=== PATIENT | male | born 1950 | race Caucasian/White ===

== ENCOUNTER → 2018-09-25 10:22 | Outpatient (CLI) | payer OTHER, SELFPAY ==
[2017-10-07 14:43] VITALS: BMI 31.7
--- NOTE | 2018-09-25 10:33 | RAD_ITS ---
STUDY: X-RAY - LEFT SHOULDER REASON FOR EXAM: Male, 68 years old. Patient fell. Pain TECHNIQUE: 4 view(s) of the shoulder. COMPARISON: None. FINDINGS: There are mild degenerative changes of the left acromioclavicular joint and the left glenohumeral articulation. No fracture. Electronically Signed: Hood Ladd MD at 7:26 EDT Tel , Service support , RAD/Shoulder min 2 Views
--- NOTE | 2018-09-25 10:44 | RAD_ITS ---
STUDY: X-RAY - LUMBAR SPINE REASON FOR EXAM: Male, 68 years old. Low back pain TECHNIQUE: 2 view(s) of the lumbar spine were obtained. COMPARISON: None FINDINGS: Normal lumbar lordosis. There is no substantial scoliosis. There is a normal alignment of the vertebrae from L1 to L5. There is a bilateral pars defect and grade 1-2 spondylolisthesis at L5/S1.. There is multilevel endplate spondylosis of the lumbar vertebrae. Mild disc space narrowing noted throughout the lumbar spine except at L5-S1 where there is significant disc space narrowing. Aortic stent graft noted, it is free of apparent complication RAD/Lumbar Spine 2 or 3 Views IMPRESSION: Degenerative changes of the spine, as detailed above with a bilateral pars defect and grade 1-2 spondylolisthesis at L5/S1 Electronically Signed: Leonardo Narayanan MD at 13:18 EDT , Service support ,
== END ==
PROVIDERS: Family Provider Internal Medicine; PCP Internal Medicine; Referring Provider Internal Medicine; Visit Provider Internal Medicine
DX: M25.512 Pain in left shoulder (principal); M54.31 Sciatica, right side
CPT/HCPCS: 72100; 73030

== ENCOUNTER → 2018-10-19 | Outpatient (CLI) | payer OTHER, SELFPAY ==
[2018-10-08 15:43] VITALS: BMI 31.0
[2018-10-19 06:59] LABS: AST(SGOT) 16 U/L (15-37); Alanine Aminotransfer ALT/SGPT 26 U/L (16-61); Albumin, Serum 3.3 g/dL (3.2-5.0); Alkaline Phosphatase 52 U/L (45-117); Bilirubin, Direct 0.14 mg/dL (0.00-0.30); Cholesterol 154 mg/dL (200); Globulin 3.6 g/dL (2.2-4.2); High Density Lipoprotein 44 mg/dL; Protein, Total 6.9 g/dL (6.4-8.2); Triglycerides 106 mg/dL; Very Low Density Lipoprotein 21 mg/dL (5-40)
== END | disposition home or self-care (01) ==
LOC: LAB 06:12
PROVIDERS: Family Provider Internal Medicine; PCP Internal Medicine; Referring Provider Internal Medicine Cardiovascular Disease; Visit Provider Internal Medicine Cardiovascular Disease
DX: E78.00 Pure hypercholesterolemia, unspecified (principal)
CPT/HCPCS: 36415; 80061; 80076

== ENCOUNTER → 2018-10-21 | Outpatient (CLI) | payer OTHER, SELFPAY ==
[2018-10-08 15:43] VITALS: BMI 31.0
--- NOTE | 2018-10-21 08:45 | STRESSREP_ITS ---
Stress Test Report Exercise myocardial perfusion stress test. 68-year-old man with a history of coronary artery disease. Medications aspirin, nitroglycerin, lisinopril, metoprolol, atorvastatin. Stress protocol: Resting EKG demonstrates sinus bradycardia with a rate of 54 bpm normal intervals are noted resting blood pressure 154/82 mmHg. The patient exercised according to the regular Joshua protocol for total duration of 9 minutes. The maximum heart rate attained was 141 bpm is 91% maximum predicted heart rate the maximum workload was 10.1 metabolic equivalents. Patient maintained sinus rhythm throughout the recording with occasional premature ventricular complexes noted. At rest nonspecific ST-T wave changes were noted. At peak exercise ther e was 1.[address] depression noted in leads II, III and I 0.7 and aVF. There was 1.[address] depression noted in lead V5 and V6 suggestive of ischemia. The resting blood pressure was 154/82 with a peak blood pressure 174/68 mmHg. Chest pain was noted. Myocardial perfusion protocol. 14.1 mCi of technetium 99m sestamibi was injected at rest. The patient exercised according to regular Joshua protocol for total duration of 9 minutes at peak exercise 44.6 mCi of technetium 99m sestamibi was injected stress images were obtained stress and rest images were reconstructed and compared in the short axis vertical long horizontal long axis. Gated images were also obtained per Perfusion SPECT analysis: Review of the stress images demonstrate normal cardiac silhouette size. There is a medium-sized defect noted in the inferior basal and mid lateral wall. This appears to be present on the stress and resting images suggestive of previous infarct in the inferior basal and lateral region. No areas of reversibility are noted suggest ischemia. This does correspond to a posterolateral myocardial infarction. Gated SPECT analysis: The gated ejection fraction is noted to be 49%. Conclusion: Exercise myocardial perfusion stress test with no evidence of ischemia noted at a high workload. No clinical angina noted. Posterolateral infarct is noted.
== END | disposition home or self-care (01) ==
LOC: CVS 06:21
PROVIDERS: Family Provider Internal Medicine; PCP Internal Medicine; Referring Provider Internal Medicine Cardiovascular Disease; Visit Provider Internal Medicine Cardiovascular Disease
DX: I25.10 Atherosclerotic heart disease of native coronary artery without angina pectoris (principal); Z98.61 Coronary angioplasty status
CPT/HCPCS: 78452; 93017; A9500; A4216

== ENCOUNTER → 2019-02-24 | Outpatient (CLI) | payer OTHER, SELFPAY ==
[2018-10-08 15:43] VITALS: BMI 31.0
[2019-02-24 07:57] LABS: PSA,Total - Annual Screen 1.28 ng/mL (0.00-4.00)
== END | disposition home or self-care (01) ==
LOC: LAB 06:06
PROVIDERS: Family Provider Internal Medicine; PCP Internal Medicine; Referring Provider Urology; Visit Provider Urology
DX: Z12.5 Encounter for screening for malignant neoplasm of prostate (principal)
CPT/HCPCS: 36415; 84153; G0103

== ENCOUNTER 2019-06-11 13:33 | Emergency (ER) | payer OTHER, SELFPAY ==
[2018-10-08 15:43] VITALS: BMI 31.0
[2019-06-11 13:34] VITALS: BP 153/80; PULSE 60; RESP 16; TEMP 36.7; O2SAT 99; BMI 31.7
--- NOTE | 2019-06-11 14:12 | ED.VIS.GEN ---
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 He states he was on a ladder beginning of September. He apparently fell. He had outpatient x-rays performed September 25. Those x-rays were reviewed by me and there is evidence of arthritis of the AC joint and the glenohumeral junction/joint. Patient states he has been taking ibuprofen. He states the pain has awakened him from sleep and if he puts his hand behind his head it will alleviate the pain so he can sleep for an hour. He denies cardiac or respiratory symptoms. He denies radicular pain. He localizes the pain to the glenohumeral joint and left trapezius area. Occasionally the pain will involve the lateral proximal left arm. 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 Past Medical History - Allergies and Home Meds Allergies/Adverse Reactions: Allergies clopidogrel [From Plavix] Allergy (Verified 10/08/18 15:43) Anaphylaxis Primary Care Physician: Terri Arguello DO [Primary Care Provider] - Prior records reviewed: Yes Lives: Spouse/ Significant Other Smoking Status: Former smoker Alcohol: None Drugs: None Review of Systems General: Denies: Chills, Fever, Sweats, Weight loss Eyes: Denies: Visual changes - bilaterally, Blurred Vision - bilaterally Cardiovascular: Denies: Chest pain, Palpitations Respiratory: Denies: Dyspnea, Cough, Dyspnea on exertion Musculoskeletal: Reports: Extremity Pain. Denies: Myalgias, Arthralgias, Neck pain, Back pain, Swelling Skin: Denies: Rash, Wounds Neurological: Denies: Headache, Weakness, Parasthesia, Numbness Physical Exam Vital Signs/Narrative: Vital Signs Temp Pulse Resp BP Pulse Ox 06/11/19 13:34 98.1 F 60 16 153/80 H 99 Inital Vital Signs reviewed: Yes General: Well nourished, Well developed, No Acute Distress Head: Normocephalic, Atraumatic Eyes: Perrl, EOMI. Negative for: Pale conjunctiva, Scleral icterus ENT: Negative for: Moist mucous membranes, No rhinorrhea Neck: Supple, Nontender, No lymphadenopathy, No JVD, - Cardiovascular: Regular rate, Regular rhythm, No murmurs, Normal S1, Normal S2 Respiratory: No distress, CTA bilaterally, Chest nontender Back: Negative for: Nontender, Normal Inspection Extremities: No edema, - - Is pain palpation over the left trapezius and proximal left shoulder. Abduction past 90 degrees causes significant discomfort. Internal/external rotation causes discomfort. Axillary, median, radial and ulnar function are intact. Biceps, brachialis and triceps reflex are 2+ and symmetric.. Negative for: Nontender Skin: Normal color, No rash, No Trauma. Negative for: Cyanosis, Diaphoresis, Jaundice Neurological: Alert, Oriented x3, Cranial nerves II-XII grossly intact, Normal Strength, Normal Sensation, Normal DTR Psychological: Normal affect Diagnostic/Tx/Re-eval - Medical Decision Making My records were reviewed. Since he had x-ray greater than 6 months ago when he fell and there was no fracture at that time there is no indication for repeat x-ray. Patient has been informed that he has arthritis involving the AC joint and the glenohumeral joint. This may be contributing to his pain. With him having sniffing and pain with abduction past 90 degrees he may have developed impingement syndrome. Since this is work-related we will have him follow-up with [facility]. Patient is been informed there is nothing more to do at this time. ED Disposition - Plan for ED Patient: Disposition: Home or Assisted Living Diagnosis: Chronic left shoulder pain, Arthritis of left glenohumeral joint, Impingement syndrome, shoulder, left Instructions: Shoulder Impingement Syndrome, Osteoarthritis: Coping with Pain, ANTI-INFLAMMATORY, General Referrals: Terri Arguello DO [Primary Care Provider] - [facility] [GROUP OF PHYSICIANS] - 3-5 Days
[2019-06-11 14:36] VITALS: BP 126/87; PULSE 54; RESP 17; O2SAT 93
== END 2019-06-11 14:37 | disposition home or self-care (01) ==
PROVIDERS: Emergency Provider Emergency Medicine; Family Provider Internal Medicine; PCP Internal Medicine
DX: M19.012 Primary osteoarthritis, left shoulder (principal); M75.42 Impingement syndrome of left shoulder; M25.512 Pain in left shoulder; G89.29 Other chronic pain; I25.10 Atherosclerotic heart disease of native coronary artery without angina pectoris; I25.2 Old myocardial infarction; E78.5 Hyperlipidemia, unspecified; I10 Essential (primary) hypertension; Z79.82 Long term (current) use of aspirin; Z79.899 Other long term (current) drug therapy; Z87.891 Personal history of nicotine dependence
CPT/HCPCS: 99282

== ENCOUNTER → 2020-02-22 17:51 | Outpatient (CLI) | payer OTHER, SELFPAY ==
[2019-06-16 16:01] VITALS: BMI 31.7
--- NOTE | 2020-02-22 16:30 | CYSPIN_PTH ---
PATIENT: CHRIS CR LOC: [facility] U#:[id number] AGE/SX: 75/M ROOM: RE02/22/[address]: Dr. Derrek Gann MD : 1950 BED: DIS: SPEC #: [id number] RECD: 02/23/20 08:24 STATUS: ANNEL REDaja #: [id number] ZAK: 02/22/20 16:[address]: Derrek Gann DEPT: CYTOLOGY RECD BY: Evans Rivas ENTERED: 02/23/20 08:25 SP TYPE: CYSPIN FL OTHR DR: Dr. Terri Arguello, DO Tissues: Urine Procedures: Pap Stain (control) Special Stain Group II Cytospin Fluid HEADER OPERATION: Not noted PRE-OP DIAGNOSIS: Malignant neoplasm of ureteric orifice TISSUE SUBMITTED: Urine for cytology DIAGNOSIS CYTOLOGY Urine for cytology (cytospin): Negative for malignant cells. 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 CYTOLOGY STUDY Slides are reviewed. CYTOLOGY GROSS Received is 75 ml of cloudy orange fluid labeled with the patient's name and and designated per the requisition as urine. Submitted for cytology preparation. / blaise 02/23/20 TC:5 CPT: 31850
[2020-02-22 17:52] LABS: Cytology, Body Fluid / CSF SEE PATHOLOGY REPORT
== END ==
PROVIDERS: PCP Internal Medicine; Referring Provider Urology; Visit Provider Urology
DX: C67.6 Malignant neoplasm of ureteric orifice (principal)
CPT/HCPCS: 88108; 88313

== ENCOUNTER 2020-03-08 08:25 | Day surgery (SDC) | payer OTHER, SELFPAY ==
[2019-06-16 16:01] VITALS: BMI 31.7
[2020-02-24 16:20] VITALS: BMI 32.3
--- NOTE | 2020-03-01 06:10 | EKG12_ITS ---
Test Reason : PRE OP Blood Pressure : / mmHG Vent. Rate : 043 BPM Atrial Rate : 043 BPM P-R Int : 182 ms QRS Dur : 110 ms QT Int : 464 ms P-R-T Axes : 060 034 073 degrees QTc Int : 392 ms Marked sinus bradycardia with sinus arrhythmia Abnormal ECG Confirmed by PATRICE MCKEON ([id number]), restaurant expeditor BRIGETTE MORALES ([id number]) on 03/06/2020 9:47:51 AM Referred By: Derrek Gann Confirmed By:PATRICE MCKEON
[2020-03-01 07:52] LABS: International Normalized Ratio 0.9; Prothrombin Time (Protime)PT. 12.1 SECONDS (11.7-14.9)
[2020-03-01 07:53] LABS: Partial Thromboplast Time 26.1 Seconds (24.1-36.2)
[2020-03-01 07:57] LABS: Hematocrit 42.8 % (40-54); Hemoglobin 15.5 g/dL (13.0-16.5); Mean Corp Hgb Conc 36.2 g/dL (32-36); Mean Corpuscular Hgb 33.4 pg (27.0-32.0); Mean Corpuscular Volume 92.2 fL (80-94); Mean Platelet Vol. 10.5 fl (6.2-12.0); Platelet Count 239 K/mm3 (150-450); RBC Distribution Width CV 14.6 % (11.6-14.6); RBC Distribution Width SD 43.4 fl (35.1-43.9); Red Blood Count 4.64 M/mm3 (4.6-6.2); White Blood Count 6.3 K/mm3 (4.4-11.0)
[2020-03-01 08:30] LABS: AST(SGOT) 20 U/L (15-37); Alanine Aminotransfer ALT/SGPT 42 U/L (16-61); Albumin, Serum 3.7 g/dL (3.2-5.0); Alkaline Phosphatase 60 U/L (45-117); Anion Gap 5 (5-15); BUN 23 mg/dL (7-18); BUN/Creat Ratio 22.8 RATIO (10-20); Bilirubin, Direct 0.19 mg/dL (0.00-0.30); Calcium,Total 8.7 mg/dL (8.5-10.1); Chloride 106 mmol/L (98-107); Creatinine, Serum 1.01 mg/dL (0.70-1.30); EST Glomerular Filtration Rate 78 mL/min (>60); Est Glom Filt Rate - Afr Amer 95 mL/min (>60); Globulin 4.1 g/dL (2.2-4.2); Glucose 93 mg/dL (74-106); PSA,Total - Annual Screen 1.09 ng/mL (0.00-4.00); Potassium 4.8 mmol/L (3.5-5.1); Protein, Total 7.8 g/dL (6.4-8.2); Sodium Level 138 mmol/L (136-145)
[2020-03-08] VITALS (8 sets, daily range): BP systolic 110–135; BP diastolic 51–83; PULSE 44–61; RESP 15–16; TEMP 36.1–36.5; O2SAT 97–99; BMI 31.3
--- NOTE | 2020-03-08 | URE_PTH ---
PATIENT: CHRIS CR LOC: [facility] [place] U#:[id number] AGE/SX: 70/M ROOM: RE03/08/[address]: Dr. Derrek Gann MD : 1950 BED: DIS: 03/08/2020 SPEC #: [id number] RECD: 03/08/20 13:16 STATUS: ANNEL REDaja #: [id number] ZAK: 03/08/20 00:[address]: Derrek Gann DEPT: SURGICAL PATHOLOGY RECD BY: Floyd Arana ENTERED: 03/08/20 13:16 SP TYPE: URETER BX OTHR DR: Dr. Terri Arguello, DO Tissues: Ureteral orifice, NOS Procedures: Surgery Specimen Level IV HEADER OPERATION: Cysto, ureteroscopy, transurethral resection of tumor, stent PRE-OP DIAGNOSIS: Malignant neoplasm of ureteric orifice; BPH with lower urinary tract; prostate screening TISSUE SUBMITTED: Tumor of right ureteral orifice MICROSCOPIC DIAGNOSIS Tumor of right ureteral orifice, TUR: Mild chronic inflammation. No evidence of malignancy. See comment. AM:blaise 03/09/20 COMMENT Urothelium and smooth muscle are both represented in the biopsy. Clinical correlation is suggested. 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 Case has been reviewed in consultation with Dr. Baca who concurs with the above diagnosis. IDC:[email or web address] MICROSCOPIC DESCRIPTION Slides are reviewed. GROSS DESCRIPTION Received in fixative is one container labeled with the patient's name and designated tumor of right ureteral orifice. The specimen consists of two irregular fragments of light ruiz soft tissue that in aggregate measure 0.6 x 0.3 x 0.2 cm. The specimen is totally submitted in one cassette. / CRYSTAL:blaise 03/08/20 TC:1 CPT: 31253
[2020-03-08] MEDS: Lactated Ringers 1,000 ML 100 ML IV (09:02)
[2020-03-08] MEDS: Cefazolin 2 GM in 0.9% Normal Saline 100 ML IV (11:13)
--- NOTE | 2020-03-08 11:24 | PCM.HP.STD ---
History of Present Illness Date of Admission: 03/08/20 Chief Complaint: Bladder tumor ureteral tumor The patient is a 70 year old male who was found to have a ureteral tumor coming from the right ureteral orifice right at the bladder ureteral junction Past Medical History Past Medical History (Chronic Problems): Chronic Problems (Last Updated 02/24/20 @ 17:04 by Lakia Bailey) Abdominal aortic aneurysm (AAA) (Chronic) Endovascular AAA repair 12/2010 Atherosclerotic heart disease of [place] coronary artery without angina pectoris (Chronic) History of coronary artery stent placement (Chronic 01/28/12) PTCA of mid left CFX intracoronary stent October 2010; PTCA/stent of distal LCx & distal RCA 06/04/11 PCI to mid CX & RCA;PCI & stent to 70% in-stent restenosis of prox & mid left Cx 01/28/12 Essential (primary) hypertension (Chronic) History of myocardial infarction (Chronic) 10/22 Hyperlipidemia (Chronic) Bladder cancer (Chronic) Medical History: Medical History (Last Updated 02/24/20 @ 17:04 by Lakia Bailey) Abdominal aortic aneurysm (AAA) (Chronic) I71.4 Endovascular AAA repair 12/2010 Atherosclerotic heart disease of [place] coronary artery without angina pectoris (Chronic) I25.10 Essential (primary) hypertension (Chronic) I10 History of myocardial infarction (Chronic) I25.2 10/22 Hyperlipidemia (Chronic) E78.5 Bladder cancer (Chronic) C67.9 Impingement syndrome of left shoulder M75.42 Pain in left shoulder M25.512 Primary osteoarthritis, left shoulder M19.012 Back pain M54.9 Shoulder pain M25.519 Dizziness and giddiness (Inactive) R42 Dyspnea on exertion (Inactive) R06.09 Fatigue (Inactive) R53.83 Allergies clopidogrel [From Plavix] Allergy (Verified 03/08/20 08:40) Anaphylaxis Home Medications: Ambulatory Orders Medication Instructions Recorded atorvastatin 40 mg tablet 40 mg PO DAILY #90 tab 05/17/19 lisinopril 10 mg tablet 10 mg PO DAILY #90 tab 11/08/19 nitroglycerin 0.4 mg sublingual 0.4 mg SUBLINGUAL PRN PRN #25 tab 01/31/20 tablet metoprolol tartrate 25 mg tablet 25 mg PO BID #180 tab 02/16/20 Aspirin E.C. [Ecotrin] 81 mg PO DAILY@0800 02/29/20 Surgical History: Surgical History (Last Updated 02/24/20 @ 17:04 by Lakia Bailey) History of coronary artery stent placement (Chronic) Onset Date: 01/28/12 Z95.5 PTCA of mid left CFX intracoronary stent October 2010; PTCA/stent of distal LCx & distal RCA 06/04/11 PCI to mid CX & RCA;PCI & stent to 70% in-stent restenosis of prox & mid left Cx 01/28/12 H/O endovascular stent graft for abdominal aortic aneurysm Onset Date: 12/18/10 Z95.828 Aortobi-iliac stent graft repair 12/18/2010 H/O transurethral destruction of bladder lesion Onset Date: 2009 Z98.890 chemo Surgical History: no surgical history Smoking Status: Former smoker Tobacco Use: Non-smoker VTE Information - Inpt Only VTE Present on Admission: No - Physical Exam Vitals/I&O's: Vital Signs Temp Pulse Resp BP Pulse Ox 97.7 F L 45 L 15 135/83 H 99 03/08/20 08:48 03/08/20 08:48 03/08/20 08:48 03/08/20 08:48 03/08/20 08:48 Oxygen Delivery Method Room Air Weight: 97.7 kg Body Mass Index (BMI) 31.3 General: Alert, Oriented x3, Cooperative HEENT: Atraumatic, PERRLA, EOMI, Normocephalic Neck: Supple, No JVD, Negative Carotid Bruits Lungs: Clear to auscultation, Normal air movement Cardiovascular: Regular rate, No murmurs Abdomen: Bowel Sounds Present, Soft, Non Tender Extremities: No edema, Capillary Refill Less than 3 Seconds Skin: No rashes, No breakdown Musculoskeletal: No Tenderness to Palpation of Joints or Extremities Neurological: Cranial nerves II-XII grossly intact Psych/Mental Status: Normal Affect, Appropriate Current Medications Cefazolin Sodium 2 gm/ Sodium (Chloride) 110 mls @ 150 mls/hr IV PREOP ONE Stop: 03/08/20 11:38 Lactated Ringer's () 1,000 mls @ 100 mls/hr IV .Q10H CA Last Admin: 03/08/20 09:02 Dose: 100 mls/hr Documented by: Assessment/Plan Plan to proceed with cystoscopy right retrograde pyelogram right ureteroscopy biopsy and also transurethral resection of the bladder tumor coming from the ureteral orifice.
--- NOTE | 2020-03-08 11:27 | PCM.DC.URO ---
Discharge Diet: Light diet - advance as tolerated Discharge Activity: Return to Normal Activity Allergies/Adverse Reactions: Allergies clopidogrel [From Plavix] Allergy (Verified 03/08/20 08:40) Anaphylaxis Medications to take at Discharge atorvastatin 40 mg tablet 40 mg PO DAILY #90 tab 05/17/19 lisinopril 10 mg tablet 10 mg PO DAILY #90 tab 11/08/19 nitroglycerin 0.4 mg sublingual tablet 0.4 mg SUBLINGUAL PRN PRN #25 tab 01/31/20 metoprolol tartrate 25 mg tablet 25 mg PO BID #180 tab 02/16/20 Aspirin E.C. [Ecotrin] 81 mg PO DAILY@0800 02/29/20 Ciprofloxacin [Cipro] 500 mg PO BID #6 tab 03/08/20 Hydrocodone Bitart/Apap 5-325 [[place] 5MG-325MG] 1 tablet PO Q4H PRN PRN 5 Days #14 tablet 03/08/20 The following prescriptions were given: Ciprofloxacin [Cipro] 500 mg PO BID #6 tab Transmission Status: Pending to [id number] Hydrocodone Bitart/Apap 5-325 [[place] 5MG-325MG] 1 tablet PO Q4H PRN PRN 5 Days #14 tablet PRN Reason: Pain Transmission Status: Received by [id number] Primary Care Physician: Terri Arguello DO [Primary Care Provider] - Test Results: Test results from this visit will be discussed in further detail at your follow-up appointment, if applicable. Please Follow Up With: Derrek Gann MD When: in 2 weeks, please call to make an appointment.
[2020-03-08] MEDS: Lubricating Jelly 60 GM Tube 30 GM TOPICAL (11:28)
--- NOTE | 2020-03-08 11:44 | OP.PCM_ITS ---
Report of Operation Date of Procedure: 03/08/20 Pre-Operative Diagnosis: Tumor at the right ureteral orifice Post-Operative Diagnosis: Same Surgery/Procedure Performed:: Cystoscopy, right ureteroscopy, transurethral resection of tumor of the right ureteral orifice and right stent placement Description of Surgical Findings:: 70-year-old male in cystoscopy was found to have a tumor emanating from the right ureteral orifice today we taken to surgery to evaluate the tumor and also to resect it. He was taken back to the operating room at the smooth induction of general anesthesia he was placed in dorsolithotomy position. The penis and testicles were prepped and draped in usual sterile fashion went in the bladder with a 21 [place] rigid cystourethroscope, the entire bladder was clear of any tumors he had a prior resection of the prostate prior TURP within the bladder identified the right ureter orifice to look to get been resected back and emanating from the right ureteral orifices small papillary tumors. I then placed a wire up the right ureteral orifice went over the wire with the flexible ureteroscope inspected the upper pole midpole lower pole kidney inspected the ureter all the way down and no other tumors were seen except for the small tumors at the distal right ureteral orifice. I then switched over to a resectoscope and resected the tumor at the ureteral orifice once this was resected handed as a specimen was about 1 cm in size and then after the resection was completed then I advanced a wire up the ureter and over the wire place a stent patient anesthetic was reversed and taken back to PACU good condition plan to see him back in about a week to review the pathology but will leave the stent in for about a month to let it heal. Type of Anesthesia:: General Drains: stent right - Admit VTE Documentation VTE Present on Admission: No VTE Mechan Device Prophylaxis: SCD's
[2020-03-08] MEDS: oxyCODONE 5 MG Tablet PO (13:12)
== END 2020-03-08 13:42 | disposition home or self-care (01) ==
LOC: SDC 08:25 → AC 08:26
PROVIDERS: Anesthesiology; PCP Internal Medicine; Referring Provider Urology; Visit Provider Urology
PROC: 0TJ98ZZ Inspection of Ureter, Via Natural or Artificial Opening Endoscopic (ICD-10-PCS; CPT 52351; principal; 2020-03-08 10:20)
PROC: 0TBB8ZZ Excision of Bladder, Via Natural or Artificial Opening Endoscopic (ICD-10-PCS; CPT 52332; 2020-03-08 10:20)
DX: D49.4 Neoplasm of unspecified behavior of bladder (principal); Z11.59 Encounter for screening for other viral diseases; I25.10 Atherosclerotic heart disease of native coronary artery without angina pectoris; E78.5 Hyperlipidemia, unspecified; I25.2 Old myocardial infarction; I10 Essential (primary) hypertension; Z79.899 Other long term (current) drug therapy; Z79.82 Long term (current) use of aspirin; Z95.5 Presence of coronary angioplasty implant and graft; M19.012 Primary osteoarthritis, left shoulder; Z87.891 Personal history of nicotine dependence; R00.1 Bradycardia, unspecified; Z85.51 Personal history of malignant neoplasm of bladder; Z12.5 Encounter for screening for malignant neoplasm of prostate
CPT/HCPCS: 52332; 52355; 36415; 80048; 80076; 84153; 85027; 85610; 85730; 87635; 88305; 93005; 94799; J7120; C1769; C2617; G0103; J2405; U0003

== ENCOUNTER → 2021-01-30 07:38 | Outpatient (CLI) | payer OTHER, SELFPAY ==
[2020-03-08 08:48] VITALS: BMI 31.3
--- NOTE | 2021-01-30 07:42 | AAVD_ITS ---
Reason For Study: AAA Aorta Measurements Aorta Doppler Measurements Proximal aorta measures2.14 x 2.11cm. in cross- Peak systolic flow velocities within the proximal sectional axis. aorta measure 59.8 cm/sec. Proximal aorta measures2.18cm. in longitudinal Peak systolic flow velocities within the mid aorta axis. measure 45.9 cm/sec. Mid aorta measures2.14 x 2.05cm. in cross- Peak systolic flow velocities within the distal sectional axis. aorta measure 41.5 cm/sec. Mid aorta measures2.16cm. in longitudinal axis. Distal aorta measures2.74 x 2.33cm. in cross- sectional axis. Distal aorta measures2.38cm. in longitudinal axis. Left Iliac Artery Left iliac artery measures 1.26 x 1.38 cm. in the cross-sectional axis. Left iliac artery measures 1.16 cm. in the longitudinal axis. Peak systolic velocity in the left iliac artery measures 205.7 cm/sec. Right Iliac Artery Right iliac artery measures .8 x .87 cm. in the cross-sectional axis. Right iliac artery measures .85 cm. in the longitudinal axis. Peak systolic velocity in the right iliac artery measures 151.9 cm/sec. Procedure Aorta IVC Iliac vasculature or bypass grafts [id number]. The exam was diagnostic. Exam performed in department. VL/Abd Aortic/IVC Duplex scan Interpretation Summary No evidence of aortic iliac aneurysm or stenosis. Ordering Physician: Christopher Leary Performed By: Danny Veloz RVT and Student
--- NOTE | 2021-01-30 07:43 | ART_ITS ---
Reason For Study: atherosclerosis with claudication Procedure A bilateral lower extremity continuous wave Doppler with analog waveform analysis and ankle brachial indexes. Left Segmental Pressures Left brachial= 141mmHg. Left posterior tibial artery = 194mmHg. Left dorsalis pedis artery = 162mmHg. The left dorsalis pedis waveforms are triphasic. The left posterior tibial artery waveforms are triphasic. Right Segmental Pressures Right brachial= 137mmHg. Right posterior tibial artery = 156mmHg. Right dorsalis pedis artery = 153mmHg. The right dorsalis pedis waveforms are triphasic. The right posterior tibial artery waveforms are triphasic. Indices The right ankle brachial index by the dorsalis pedis is 1.09. The right ankle brachial index by the posterior tibial artery is 1.11. The left ankle brachial index by the posterior tibial artery is 1.38. The left ankle brachial index by the dorsalis pedis is 1.15. VL/Ankle Brachial Index Interpretation Summary No evidence of occlusive disease at rest with an ANGELA 1.11 on the right and 1.38 on the left with bilateral triphasic flow all 4 vessels at the. Ordering Physician: Christopher Leary Performed By: Danny Veloz RVT and Student
== END ==
PROVIDERS: PCP Internal Medicine; Referring Provider Surgery Vascular Surgery; Visit Provider Surgery Vascular Surgery
DX: I25.10 Atherosclerotic heart disease of native coronary artery without angina pectoris (principal); E78.00 Pure hypercholesterolemia, unspecified; I10 Essential (primary) hypertension; I71.4 Abdominal aortic aneurysm, without rupture; I70.213 Atherosclerosis of native arteries of extremities with intermittent claudication, bilateral legs; Z95.828 Presence of other vascular implants and grafts
CPT/HCPCS: 93922; 93978

== ENCOUNTER → 2021-06-21 08:02 | Outpatient (CLI) | payer OTHER, SELFPAY ==
[2021-06-21 10:25] LABS: AST(SGOT) 19 U/L (15-37); Alanine Aminotransfer ALT/SGPT 41 U/L (16-61); Albumin, Serum 3.5 g/dL (3.2-5.0); Alkaline Phosphatase 57 U/L (45-117); Cholesterol 152 mg/dL (200); Globulin 4.1 g/dL (2.2-4.2); High Density Lipoprotein 46 mg/dL; Protein, Total 7.6 g/dL (6.4-8.2); Triglycerides 91 mg/dL; Very Low Density Lipoprotein 18 mg/dL (5-40)
== END ==
PROVIDERS: PCP Internal Medicine; Visit Provider Nurse Practitioner Family
DX: E78.00 Pure hypercholesterolemia, unspecified (principal); I25.10 Atherosclerotic heart disease of native coronary artery without angina pectoris; Z95.5 Presence of coronary angioplasty implant and graft
CPT/HCPCS: 36415; 80061; 80076

== ENCOUNTER → 2022-02-27 | Outpatient (CLI) | payer OTHER, SELFPAY ==
--- NOTE | 2022-02-27 07:46 | ART_ITS ---
[id number] VL^ANGELA^Ankle Brachial Index [id number] Reason For Study: AAA Repair Procedure A bilateral lower extremity continuous wave Doppler with analog waveform analysis and ankle brachial indexes. Left Segmental Pressures Left brachial= 112mmHg. Left posterior tibial artery = 144mmHg. Left dorsalis pedis artery = 143mmHg. Right Segmental Pressures Right brachial= 117mmHg. Right posterior tibial artery = 144mmHg. Right dorsalis pedis artery = 138mmHg. Indices The right ankle brachial index by the posterior tibial artery is 1.23. The right ankle brachial index by the dorsalis pedis is 1.18. The left ankle brachial index by the posterior tibial artery is 1.23. The left ankle brachial index by the dorsalis pedis is 1.22. VL/Ankle Brachial Index Interpretation Summary No evidence of significant occlusive disease at rest with 5 lateral triphasic f low and an ANGELA 1.23 and 1.23. Ordering Physician: Christopher Leary Referring Physician: Christopher Leary Performed By: Yessica Michelle RDCS/RVT
--- NOTE | 2022-02-27 07:46 | AAVD_ITS ---
[id number] VL^AAVD^Abd Aortic/IVC Duplex scan [id number] Reason For Study: AAA Repair Aorta Measurements Aorta Doppler Measurements Proximal aorta measures2.58cm x 2.95cm. in cross- Peak systolic flow velocities within the proximal sectional axis. aorta measure 127 cm/sec. Proximal aorta measures2.55cm. in longitudinal Peak systolic flow velocities within the mid aorta axis. measure 147 cm/sec. Mid aorta measures2.58cm x 2.62cm. in cross- Peak systolic flow velocities within the distal sectional axis. aorta measure 55 cm/sec. Mid aorta measures2.57cm. in longitudinal axis. Distal aorta measures2.46cm x 2.43cm. in cross- sectional axis. Distal aorta measures2.45cm. in longitudinal axis. Left Iliac Artery Left iliac artery measures 1.18cm x 1.28 cm. in the cross-sectional axis. Left iliac artery measures 1.08 cm. in the longitudinal axis. Peak systolic velocity in the left iliac artery measures 148 cm/sec. Right Iliac Artery Right iliac artery measures 1.26cm x 1.45 cm. in the cross-sectional axis. Right iliac artery measures 1.27 cm. in the longitudinal axis. Peak systolic velocity in the right iliac artery measures 227 cm/sec. VL/Abd Aortic/IVC Duplex scan Interpretation Summary Aortic iliac with no evidence of significant stenosis or aneurysm visualized. M ild elevated velocities noted in the mid aorta. Ordering Physician: Christopher Leary Referring Physician: Terri Arguello Performed By: Yessica Michelle, NAIF, RVT
== END | disposition home or self-care (01) ==
LOC: CVS 07:43
PROVIDERS: PCP Internal Medicine; Referring Provider Surgery Vascular Surgery; Visit Provider Surgery Vascular Surgery
DX: Z95.828 Presence of other vascular implants and grafts (principal); I71.4 Abdominal aortic aneurysm, without rupture
CPT/HCPCS: 93922; 93978

== ENCOUNTER → 2023-02-20 | Outpatient (CLI) | payer MEDICARE, OTHER, SELFPAY ==
[2023-02-20 13:05] LABS: AST(SGOT) 19 U/L (15-37); Alanine Aminotransfer ALT/SGPT 37 U/L (16-61); Albumin, Serum 3.4 g/dL (3.2-5.0); Alkaline Phosphatase 62 U/L (45-117); Anion Gap 8 (5-15); BUN 17 mg/dL (7-18); BUN/Creat Ratio 17.2 RATIO (10-20); Bilirubin, Direct 0.21 mg/dL (0.00-0.30); Calcium,Total 8.7 mg/dL (8.5-10.1); Chloride 106 mmol/L (98-107); Cholesterol 145 mg/dL (200); Creatinine, Serum 0.99 mg/dL (0.70-1.30); EST Glomerular Filtration Rate 80 mL/min (>60); Est Glom Filt Rate - Afr Amer 96 mL/min (>60); Globulin 4.2 g/dL (2.2-4.2); Glucose 94 mg/dL (74-106); High Density Lipoprotein 48 mg/dL; PSA,Total - Annual Screen 2.79 ng/mL (0.00-4.00); Potassium 4.1 mmol/L (3.5-5.1); Protein, Total 7.6 g/dL (6.4-8.2); Sodium Level 137 mmol/L (136-145); Triglycerides 126 mg/dL; Very Low Density Lipoprotein 25 mg/dL (5-40)
== END | disposition home or self-care (01) ==
PROVIDERS: Nurse Practitioner Family; PCP Internal Medicine; Referring Provider Urology; Visit Provider Urology
DX: E78.00 Pure hypercholesterolemia, unspecified (principal); I71.40 Abdominal aortic aneurysm, without rupture, unspecified; I10 Essential (primary) hypertension; Z12.5 Encounter for screening for malignant neoplasm of prostate
CPT/HCPCS: 36415; 80048; 80061; 80076; 84153; G0103

== ENCOUNTER → 2023-03-06 | Outpatient (CLI) | payer MEDICARE, OTHER, SELFPAY ==
--- NOTE | 2023-03-06 07:45 | ART_ITS ---
Reason For Study: PVD Procedure A bilateral lower extremity continuous wave Doppler with analog waveform analysis and ankle brachial indexes. Left Segmental Pressures Left brachial= 139mmHg. Left posterior tibial artery = 158mmHg. Left dorsalis pedis artery = 160mmHg. The left dorsalis pedis waveforms are triphasic. The left posterior tibial artery waveforms are triphasic. Right Segmental Pressures Right brachial= 131mmHg. Right posterior tibial artery = 151mmHg. Right dorsalis pedis artery = 154mmHg. The right dorsalis pedis waveforms are triphasic. The right posterior tibial artery waveforms are triphasic. Indices The right ankle brachial index by the dorsalis pedis is 1.11. The right ankle brachial index by the posterior tibial artery is 1.09. The left ankle brachial index by the dorsalis pedis is 1.15. The left ankle brachial index by the posterior tibial artery is 1.14. VL/Ankle Brachial Index Interpretation Summary Bilateral no evidenace occlusive disease and triphasic flow with ANGELA 1.11 and 1 .15. Ordering Physician: Christopher Leary Performed By: Jon Veloz RVT
--- NOTE | 2023-03-06 07:45 | AAVD_ITS ---
Reason For Study: AAA repair Aorta Measurements Aorta Doppler Measurements Proximal aorta measures1.96 x 2.14cm. in cross- Peak systolic flow velocities within the proximal sectional axis. aorta measure 74.1 cm/sec. Proximal aorta measures1.92cm. in longitudinal Peak systolic flow velocities within the mid aorta axis. measure 50.6 cm/sec. Mid aorta measures2.2 x 2.16cm. in cross-sectionalPeak systolic flow velocities within the distal axis. aorta measure 43.3 cm/sec. Mid aorta measures2.23cm. in longitudinal axis. Distal aorta measures2.29 x 2.41cm. in cross- sectional axis. Distal aorta measures2.14cm. in longitudinal axis. Left Iliac Artery Left iliac artery measures .88 x .96 cm. in the cross-sectional axis. Left iliac artery measures .87 cm. in the longitudinal axis. Peak systolic velocity in the left iliac artery measures 134.5 cm/sec. Right Iliac Artery Right iliac artery measures 1.03 x 1.05 cm. in the cross-sectional axis. Right iliac artery measures .98 cm. in the longitudinal axis. Peak systolic velocity in the right iliac artery measures 168.2 cm/sec. Procedure Aorta IVC Iliac vasculature or bypass grafts [id number]. The exam was diagnostic. Exam performed in department. VL/Abd Aortic/IVC Duplex scan Interpretation Summary No evidenace aortoiliac stenosis or aneurysm. Ordering Physician: Christopher Leary Performed By: Jon Veloz RVT
== END | disposition home or self-care (01) ==
LOC: CVS 07:40
PROVIDERS: PCP Internal Medicine; Referring Provider Surgery Vascular Surgery; Visit Provider Surgery Vascular Surgery
DX: I73.9 Peripheral vascular disease, unspecified (principal); I71.43 Infrarenal abdominal aortic aneurysm, without rupture; Z95.828 Presence of other vascular implants and grafts
CPT/HCPCS: 93922; 93978

== ENCOUNTER → 2023-07-28 | Outpatient (CLI) | payer MEDICARE, OTHER, SELFPAY ==
--- NOTE | 2023-07-28 14:08 | RAD_ITS ---
STUDY: X-RAY - LEFT KNEE REASON FOR EXAM: Male, 73 years old. Knee pain. No known injury. TECHNIQUE: 3 view(s) of the knee. COMPARISON: None. FINDINGS: Normal visualized distal femur. Normal visualized proximal tibia and fibula. Normal proximal tibiofibular articulation. Normal medial femorotibial compartment. Normal lateral femorotibial compartment. Normal patellofemoral articulation. Small joint effusion. RAD/Knee 3 Views IMPRESSION: Small joint effusion. Electronically Signed: Dayday Storey MD at 14:51 EST ,
--- OUTSIDE RECORDS SUMMARY | 2023-07-28 15:03 | XMS RPT_ITS | CCD ---
Author Name Unknown Address [address] [place] [address] Organization [facility] Care Team Providers Care Instructional Systems Design Consultant Name Role Phone Susan Pizano Unavailable Unavailable Jeremías Mccray Unavailable Unavailable ALYSA Dunbar, Lisa Ospina Unavailable Susan Pizano Unavailable Unavailable Terri Arguello Unavailable [facility] Unavailable Ifrah Enriquez Unavailable Unavailable Unavailable Unavailable Unavailable Unavailable Terri Arguello Attending Unavailable Terri Arguello Consulting Unavailable Terri Arguello Primary Care Provider [phone] Ifrah Enriquez Unavailable Unavailable Mikel Malloy Unavailable Unavailable Terri Arguello DO Unavailable [facility] Unavailable Mikel Malloy LPN Unavailable Unavailable Unavailable Unavailable Allergies Allergy Classification Reported Allergen(s) Allergy Type Date of Onset Reaction(s) Facility (4 sources) clopidogrel drug allergy 1 Rash [facility] Work Phone: (12 sources) clopidogrel; Translations: [Plavix *HEMATOLOGICAL AGENTS - MISC.*] Drug Allergy Hives [facility] Work Phone: (12 sources) Insect Stings; Translations: [Insect Stings] allergy to substance [facility] Work Phone: Medications Completed/Discontinued Medications Medication Drug Class(es) Dates Sig (Normalized) Sig (Original) acetic acid 20 mg/ml / hydrocortisone 10 mg/ml otic solution (12 sources) Corticosteroid Start: 05-12-2014 End: 09-24-2018 VOSOL HC, 2-1% (Otic Solution) 2 (two) Solution bid for 0 days Quantity: 1 {Bottle} Refills: 0 Ordered: 24-Sep-2018 Ifrah Enriquez RN Start : 12-May-2014 End : 24-Sep-2018 Discontinued Comments: This order discontinued per [facility]. Problems Active Problems Problem Classification Problem Date Documented Da te Episodic/Chronic Aortic; peripheral; and visceral artery aneurysms (6 sources) Abdominal aortic aneurysm; Translations: [Abdominal aortic aneurysm without rupture] Onset: 12-24-2010 12-24-2010 Chronic Cancer of bladder (3 sources) Cancer in situ of urinary bladder; Translations: [Carcinoma In Situ Of Bladder] 05-01-2020 Chronic Cancer; other and unspecified primary (9 sources) History of bladder neoplasm; Translations: [Carcinoma In Situ Of Bladder] 09-24-2018 Episodic Coronary atherosclerosis and other heart disease (16 sources) Coronary arteriosclerosis; Translations: [Atherosclerotic heart disease of [place] coronary artery without angina pectoris] Onset: 12-24-2010 Resolved: 03-08-2016 12-24-2010 Chronic Disorders of lipid metabolism (16 sources) Hyperlipidemia; Translations: [Mixed hyperlipidemia] Onset: 02-01-2011 02-01-2011 Chronic E Codes: Fall (3 sources) Fall from ladder; Translations: [Fall from ladder, initial encounter] 05-01-2020 Episodic Essential hypertension (16 sources) Hypertensive disorder; Translations: [Benign essential hypertension] Onset: 02-26-2011 02-26-2011 Chronic Fever of unknown origin (10 sources) Fever; Translations: [Fever] 05-01-2020 Episodic Hypertension with complications and secondary hypertension (12 sources) Unspecified hypertensive heart disease without heart failure; Translations: [Hypertensive heart dx.] 09-24-2018 Chronic Neoplasms of unspecified nature or uncertain behavior (13 sources) Neoplasm of uncertain behavior of skin; Translations: [Neoplasm of uncertain behavior of skin] 09-24-2018 Episodic Past or Other Problems Problem Classification Problem Date Documented Da te Episodic/Chronic Conditions associated with dizziness or vertigo (4 sources) Dizziness and giddiness; Translations: [Dizziness and giddiness] Onset: 03-04-2014 03-04-2014 Episodic Coronary atherosclerosis and other heart disease (7 sources) Coronary angioplasty status; Translations: [History of myocardial infarction] Onset: 12-24-2010 12-24-2010 Episodic External cause codes: Fall (10 sources) Fall from ladder; Translations: [Fall from ladder, initial encounter] 09-24-2018 Malaise and fatigue (4 sources) Fatigue; Translations: [Other fatigue] Onset: 09-05-2014 09-05-2014 Episodic Other aftercare (1 source) Other fpc (current) drug therapy; Translations: [Other termite inspector (current) drug therapy] Onset: 02-01-2011 02-01-2011 Episodic Other circulatory disease (1 source) History of myocardial infarction; Translations: [Old myocardial infarction] Onset: 12-24-2010 12-24-2010 Episodic Other lower respiratory disease (4 sources) Dyspnea on exertion; Translations: [Other forms of dyspnea] Onset: 09-05-2014 09-05-2014 Episodic Residual codes; unclassified (1 source) FH: Raised blood lipids; Translations: [Family history of other endocrine, nutritional and metabolic diseases] 09-05-2014 Episodic Residual codes; unclassified (1 source) Family history of ischemic heart disease; Translations: [Family history of ischemic heart disease and other diseases of the circulatory system] Onset: 12-24-2010 12-24-2010 Episodic Unclassified (10 sources) Family history of ischemic heart disease and other diseases of the circulatory system; Translations: [FH: Raised blood lipids] Onset: 12-24-2010 09-05-2014 Episodic Unclassified (20 sources) VERRUCA, NOS 09-24-2018 Results Test Name Value Interpretation Reference Range [facility] Vital Signs Date Time Vital Sign Value Performing Clinician Facility 05-01-2020 08:46-0400 BMI (Body Mass Index) 31.02 kg/m2 Mikel Malloy LPN [facility] Work Phone: 05-01-2020 08:46-0400 Body weight 96.67 kg Mikel Malloy LPN [facility] Work Phone: 05-01-2020 08:46-0400 BSA (Body Surface Area) 2.13 m2 Mikel Malloy LPN [facility] Work Phone: 05-01-2020 08:46-0400 Height 176.53 cm Mikel Malloy LPN [facility] Work Phone: 09-24-2018 12:33-0400 BMI (Body Mass Index) 31.02 kg/m2 Ifrah Enriquez RN [facility] Work Phone: 09-24-2018 12:33-0400 Body weight 96.67 kg Ifrah Enriquez RN [facility] Work Phone: 09-24-2018 12:33-0400 BP Diastolic 80 mm[Hg] Ifrah Enriquez RN [facility] Work Phone: Encounters Encounter Date Encounter Type Care Provider Facility Start: 05-01-2020 End: 05-01-2020 Office outpatient visit 10 minutes Terri Arguello [facility] Start: 08-25-2019 End: 08-25-2019 Subsequent hospital visit by physician Miguel De Work Phone: [facility] Procedures Date Procedure Procedure Detail Performing Clinician Start: 02-27-2022 End: 03-06-2022 Abd Aortic/IVC Duplex scan Procedure Note: See Note; NOTES: [facility] [address] [place] [address] Abd Aortic/IVC Duplex scan 02/27/22 0812 MR#: [id number] Acct: [id number] Name: CHRIS PEDRAZA Rep #: [id number] : 1950 71 From: Christopher Leary MD Attending Dr: Dr. Christopher Leary MD Status: DE P CLI Ordering Dr: Christopher Leary MD Date: 02/27/22 Location: [facility] Sex: M C Admitted: [id number] VL AAVD Abd Aortic/IVC Duplex scan [id number] Reason For Study: AAA Repair Aorta Measurements Aorta Doppler Measurements Proximal aorta measures2.58cm x 2.95cm. in cross- Peak systolic flow velocities within the proximal sectional axis. aorta measure 127 cm/sec. Proximal aorta measures2.55cm. in longitudinal Peak systolic flow velocities within the mid aorta axis. measure 147 cm/sec. Mid aorta measures2.58cm x 2.62cm. in cross- Peak systolic flow velocities within the distal sectional axis. aorta measure 55 cm/sec. Mid aorta measures2.57cm. in longitudinal axis. Distal aorta measures2.46cm x 2.43cm. in cross- sectional axis. Distal aorta measures2.45cm. in longitudinal axis. Left Iliac Artery Left iliac artery measures 1.18cm x 1.28 cm. in the cross-sectional axis. Left iliac artery measures 1.08 cm. in the longitudinal axis. Peak systolic velocity in the left iliac artery measures 148 cm/sec. Right Iliac Artery Right iliac artery measures 1.26cm x 1.45 cm. in the cross-sectional axis. Right iliac artery measures 1.27 cm. in the longitudinal axis. Peak systolic velocity in the right iliac artery measures 227 cm/sec. VL/Abd Aortic/IVC Duplex scan Interpretation Summary Aortic iliac with no evidence of significant stenosis or aneurysm visualized. Mild elevated velocities noted in the mid aorta. Ordering Physician: Christopher Leary Referring Physician: Terri Arguello Performed By: Yessica Michelle RDCS, RVT 03/06/22818 Date Christopher Leary MD CC: Dr. Christopher Leary MD; Dr. Terri Arguello DO Date Dictated: 02/27/22811 Date Transcribed: 03/06/22818 Surgical Training Specialist: Kylah Arguello DO Work Phone: Start: 02-27-2022 End: 03-06-2022 Ankle Brachial Index Procedure Note: See Note; NOTES: [facility] [address] [place], [place] [address] [place] [address] Ankle Brachial Index 02/27/22 08 MR#: [id number] Acct: [id number] Name: CHRIS PEDRAZA Rep #: [id number] : 1950 71 From: Christopher Leary MD Attending Dr: Dr. Christopher Leary MD Status: DE P CLI Ordering Dr: Christopher Leary MD Date: 02/27/22 Location: [facility] Sex: M C Admitted: [id number] VL ANGELA Ankle Brachial Index [id number] Reason For Study: AAA Repair Procedure A bilateral lower extremity continuous wave Doppler with analog waveform analysis and ankle brachial indexes. Left Segmental Pressures Left brachial= 112mmHg. Left posterior tibial artery = 144mmHg. Left dorsalis pedis artery = 143mmHg. Right Segmental Pressures Right brachial= 117mmHg. Right posterior tibial artery = 144mmHg. Right dorsalis pedis artery = 138mmHg. Indices The right ankle brachial index by the posterior tibial artery is 1.23. The right ankle brachial index by the dorsalis pedis is 1.18. The left ankle brachial index by the posterior tibial artery is 1.23. The left ankle brachial index by the dorsalis pedis is 1.22. VL/Ankle Brachial Index Interpretation Summary No evidence of significant occlusive disease at rest with 5 lateral triphasic flow and an ANGELA 1.23 and 1.23. Ordering Physician: Christopher Leary Referring Physician: Christopher Leary Performed By: Yessica Michelle RDCS/RVT 03/06/22818 Date Christopher Leary MD CC: Dr. Christopher Leary MD; Dr. Terri Arguello DO Date Dictated: 02/27/22805 Date Transcribed: 03/06/22818 Surgical Training Specialist: Signed Terri Arguello DO Work Phone: Start: 02-22-2022 End: 02-22-2022 Cardiology Visit Report Procedure Note: See Note; NOTES: [facility] [address] [place] [address] OFFICE VISIT Date of Service: 02/22/22 MR#: [id number] Acct: [id number] Name: CHRIS PEDRAZA Rep #: [id number] : 1950 Provider: Dr. Shawn Falcon MD Age/Sex: 71/M Location: [facility] [place] Status: Signed HPI HPI History of Present Illness Details: CHRIS PEDRAZA, is a 71 M who presents to the office today for a follow-up visit. He is a gentleman with a history of coronary artery disease with a posterolateral myocardial infarction angioplasty and stenting of the circumflex artery. He had repeat stenosis post angioplasty and stenting of the distal right coronary artery and angioplasty of the circumflex artery. He also has an abdominal aortic aneurysm for which she is undergone repair in 2010 via endograft. He has been asymptomatic with respect to the above and was previously following up with a vascular surgeon in [place]. He is scheduled to have an abdominal ultrasound next week per the vascular surgeon here. You do remember that he exercised to a high metabolic workload in 2019. He denies chest, arm, jaw, or neck discomfort. He denies symptoms of shortness of breath with exertion, shortness of breath at rest, orthopnea, PND, sudden weight gain, or bilateral lower extrem ity edema. He denies chronic cough. He denies palpitations, lightheadedness, dizziness, near syncope, or syncopal episodes. He denies claudication issues. He denies fever or chills. He denies blood in urine, blood in stool, or epistaxis. He denies myalgia. He denies unexplainable fatigue. His exercise tolerance is stable. Intake Vital Signs 02/22/22 09:07 02/22/22 09:10 Height 5 ft 8 in 5 ft 8 in Weight: 215 lb BMI 32.6 BP 132/83 H Respiration 16 Pulse 60 Pulse Oximetry (%) 96 Intake Visit Reasons: 1 YR F/U (FRIDAY) Allergies clopidogrel [From Plavix] Allergy (Verified 02/22/22 09:15) Anaphylaxis Medications aspirin 81 mg tablet,delayed release 81 mg PO DAILY@0800 02/29/20 [History Confirmed 02/22/22] atorvastatin 40 mg tablet 40 mg PO DAILY #90 tabs 07/02/21 [Rx Confirmed 02/22/22] nitroglycerin 0.4 mg sublingual tablet 0.4 mg sublingual PRN PRN CHEST PAIN #25 tabs 07/31/21 [Rx Confirmed 02/22/22] lisinopril 10 mg tablet 10 mg PO DAILY #90 tabs 12/17/21 [Rx Confirmed 02/22/22] metoprolol tartrate 25 mg tablet 25 mg PO BID #180 tabs 02/07/22 [Rx Confirmed 02/22/22] Ejection fraction %: 55 to 59 PFSH Medical History Abdominal aortic aneurysm (AAA) Atherosclerotic heart disease of [place] coronary artery without angina pectoris Bladder cancer Essential (primary) hypertension History of ST elevation myocardial infarction (STEMI) (10/31/10) Hyperlipidemia Impingement syndrome of left shoulder Pain in left shoulder Primary osteoarthritis, left shoulder Shoulder pain Surgical History H/O endovascular stent graft for abdominal aortic aneurysm (12/18/10) H/O transurethral destruction of bladder lesion (2009) History of coronary artery stent placement (01/28/12) Family History Other Heart disease Hyperlipidemia Social History Smoking Status: Former smoker alcohol intake: never ROS Const Const: Negative for fatigue, weakness, headache(s), frequent falls, difficulty sleeping or excessive sweating Eyes Eyes: Negative for loss of peripheral vision, transient loss of vision, blurry vision, double vision or tunnel vision ENT ENT: Negative for headache(s), dizziness, Nosebleed/epistaxis or balance problems Cardio Chest Pain: No Palpitations: No Edema: None Muscle aches with walking: None Resp Respiratory: Negative for SOB with activity, SOB at rest, SOB orthopnea SOB lying down, Cough or paroxysmal nocturnal dyspnea GI GI: Negative nausea, vomiting, heartburn or black,tarry stools : Negative for hematuria Musc Musc: Negative for muscle aches/ myalgia, muscle weakness, joint pain or balance problems Skin Skin: Negative non-healing lesions, rash or unusual bruising Neuro Neuro: Negative for dizziness, lightheadedness, near syncope, syncope, orthostatic symptoms, frequent falls, headache(s), weakness, confusion, memory loss, blurry vision, double vision, vertigo or lack of coordination Macario Hematologic/Lymphatic: Negative for easy bleeding or easy bruising Endo Endo: Negative for fatigue, excessive sweating, flushing or increased thirst/drinking Psych Psych: Negative for anxiety or depression Allergy Allergy/Immunology: Negative for hives and Negative for rash Cardiology Exam Const Appearance: cooperative, healthy appearing, comfortable and no acute distress Nutritional Appearance: well nourished and obese Orientation: alert, awake and oriented x3 Head Head: normal to inspection Ears: hearing grossly normal bilaterally Nose: external nose normal Face and Sinus: face symmetric Mouth: oral mucosae normal Eyes General: appearance normal, both eyes and all related structures Eyelids: eyelids normal EOM: EOM intact bilaterally Neck Neck: normal visual inspection and no JVD Carotids: normal carotid upstroke Chest Chest inspection: normal inspection of the chest, symmetric chest movement and normal respiratory effort; Negative cough Auscultation: Bilateral: Clear to Auscultation Cardio Rate: bradycardic Rhythm: regular rhythm Heart sounds: S1 normal and S2 normal; Negative rub, gallop or murmur GI GI: normal to inspection and obese Neuro General: patient alert, patient awake, patient oriented x3 and CN's II-XI intact bilaterally Skin Skin: no rashes or lesions noted Extremities Pulses: Normal: Right Posterior Tibial Pulse, Left Posterior Tibial Pulse, Right Radial Pulse and Left Radial Pulse Lower Extremity Edema: None: Bilateral Psych Psychological: normal affect Supplemental Info Supplemental Information Abd Aortic/IVC Duplex scan 01/30/21 Interpretation Summary No evidence of aortic iliac aneurysm or stenosis. ??? Exercise myocardial perfusion stress test 10/21/2018 Stress protocol: Resting EKG demonstrates sinus bradycardia with a rate of 54 bpm normal intervals are noted resting blood pressure 154/82 mmHg.??? The patient exercised according to the regular Joshua protocol for total duration of 9 minutes.??? The maximum heart rate attained was 141 bpm is 91% maximum predicted heart rate the maximum workload was 10.1 metabolic equivalents.??? Patient maintained sinus rhythm throughout the recording with occasional premature ventricular complexes noted.??? At rest nonspecific ST-T wave changes were noted.??? At peak exercise there was 1.[address] depression noted in leads II, III and I 0.7 and aVF.??? There was 1.[address] depression noted in lead V5 and V6 suggestive of ischemia.??? The resting blood pressure was 154/82 with a peak blood pressure 174/68 mmHg.??? Chest pain was noted. Perfusion SPECT analysis: Review of the stress images demonstrate normal cardiac silhouette size.??? There is a medium-sized defect noted in the inferior basal and mid lateral wall.??? This appears to be present on the stress and resting images suggestive of previous infarct in the inferior basal and lateral region.??? No areas of reversibility are noted suggest ischemia.??? This does correspond to a posterolateral myocardial infarction. Conclusion: Exercise myocardial perfusion stress test with no evidence of ischemia noted at a high workload. No clinical angina noted. Posterolateral infarct is noted. ECHOCARDIOGRAM 11/21/2010 Interpretation Summary Moderate concentric left ventricular hypertrophy. Posterolateral segmental left ventricular dysfunction, preserved EF of 55%. The left atrium is mildly enlarged. Mild diffuse mitral valve thickening. Chordal systolic anterior motion of the mitral valve. Mild (1+) mitral valve insufficiency. Trivial tricuspid valve insufficiency. Mild diffuse thickening along aortic valve cusp margins. Trivial aortic valve insufficiency. Trivial eccentric pulmonic valve insufficiency. Laboratory Tests 06/21/21 08:18 Triglycerides 91 Cholesterol 152 LDL Cholesterol 88 HDL Cholesterol 46 Labs: LDL Cholesterol 88 mg/dL (0-130) HDL Cholesterol 46 mg/dL (40-) Triglycerides 91 mg/dL (-199) VLDL Cholesterol 18 mg/dL (5-40) Diagnostics: Electrocardiogram Stress Test NM Stress Test Pulmonary: No Data to Display Assessment and Plan Assessment and Plan (1) History of coronary artery stent placement: Status: Chronic Comment: RQS-RER-Kogn-Mid LCx w/ 2.5 x 28 mm Promus Stent and KECIA-Prox LCx w/ 2.5 x 12 mm Promus 10/31/2010; HCJ-RBC-Zqojbd LCx w/ 2.25 x 18 mm Promus Stent and KECIA-Distal RCA w/ 3.0 x 23 mm and 3.0 x 8 mm Promus Stent 06/04/2011; DMC-RMA-MSW-Prox-Mid LCx w/ 2.75 x 23 mm Promus Stent and ASM-FXE-Finu LCx w/ 3.0 x 23 mm Promus Stent 01/28/2012 Plan: History of coronary artery disease status post previous angioplasty and stenting. At this time I would not make any changes or recommendations. His last stress test demonstrated no evidence of ischemia at a high workload. (2) Essential (primary) hypertension: Status: Chronic Plan: His blood pressure is under excellent control at this particular time I would not recommend that we make any major changes. (3) Hyperlipidemia: Status: Chronic Qualifiers: Hyperlipidemia type: pure hypercholesterolemia Qualified Code(s): E78.00 - Pure hypercholesterolemia, unspecified; E78.0 - Pure hypercholesterolemia Plan: He does have a history of hyperlipidemia. His most recent lipid profile demonstrating a total cholesterol 152, LDL of 88 and HDL of 46. No other changes will be made. (4) Abdominal aortic aneurysm (AAA): Status: Chronic Comment: Endovascular AAA repair 12/2010 Plan: He is status post abdominal aortic aneurysm repair. The plan will be to continue surveillance with the vascular surgeon. Thank you for allowing me to participate in the care of your patient. Please don't hesitate to call if any issues arise. Plan Details Follow Up: 1 Year (r) Coding Level of Care Code Off vis,est,level 3 Diagnoses History of coronary artery stent placement Z95.5 Essential (primary) hypertension I10 Hyperlipidemia E78.00; E78.0 Hyperlipidemia type: pure hypercholesterolemia Abdominal aortic aneurysm (AAA) I71.4 Coding Level of Care Code Off vis,est,level 3 Diagnoses History of coronary artery stent placement Z95.5 Essential (primary) hypertension I10 Hyperlipidemia E78.00; E78.0 Hyperlipidemia type: pure hypercholesterolemia Abdominal aortic aneurysm (AAA) I71.4 02/22/22 0957 <Electronically signed by Shawn Falcon MD> Date Shawn Diaz Signature: Date (if applicable) CC: Dr. Terri Arguello, DO Terri Arguello DO Work Phone: Start: 03-02-2021 End: 03-02-2021 Cardiology Visit Report Comments: See Note; NOTES: [facility] [address] [place] [address] OFFICE VISIT Date of Service: 03/02/21 MR#: [id number] Acct: [id number] Name: CHRIS PEDRAZA Rep #: [id number] : 1950 Provider: LAMIN ferris Age/Sex: 70/M Location[place] [facility] [place] Status: Signed HPI HPI History of Present Illness Details: CHRIS PEDRAZA, is a 70 M who presents to the office today for a follow-up visit. He is a gentleman with a history of coronary artery disease with a posterolateral myocardial infarction angioplasty and stenting of the circumflex artery. He had repeat stenosis post angioplasty and stenting of the distal right coronary artery and angioplasty of the circumflex artery. He also has an abdominal aortic aneurysm for which she is undergone repair in 2010 via endograft. He has been asymptomatic with respect to the above and was previously following up with a vascular surgeon in [place]. You do remember that he exercised to a high metabolic workload in 2019. He stopped taking Lisinopril for one week d/t forehead breaking out. This resolved and since has resumed his Lisinopril. He states at home his blood pressure as been 120s systolic and heart rate 40s-50s. He denies chest, arm, jaw, or neck discomfort. He denies symptoms of shortness of breath with exertion, shortness of breath at rest, orthopnea, PND, sudden weight gain, or bilateral lower extremity edema. He denies chronic cough. He denies palpitations, lightheadedness, dizziness, near syncope, or syncopal episodes. He denies claudication issues. He denies fever or chills. He denies blood in urine, blood in stool, or epistaxis. He denies myalgia. He denies unexplainable fatigue. His exercise tolerance is stable. Intake Vital Signs 03/02/21 15:48 Height 5 ft 8 in Weight: 215 lb BMI 32.6 BP 130/75 H Blood Pressure Location Lt brachial Position Sitting Respiration 18 Pulse 56 L Pulse Source Monitor Pulse Oximetry (%) 94 Intake Visit Reasons: 1 Y FU Manager Gaming Required: No Accompanied by: None Is patient in pain?: No Allergies clopidogrel [From Plavix] Allergy (Verified 03/02/21 15:48) Anaphylaxis Medications nitroglycerin 0.4 mg sublingual tablet 0.4 mg SUBLINGUAL PRN PRN #25 tab 01/31/20 [Rx Confirmed 03/02/21] aspirin 81 mg PO DAILY@0800 02/29/20 [History Confirmed 03/02/21] atorvastatin 40 mg tablet 40 mg PO DAILY #90 tab 06/14/20 [Rx Confirmed 03/02/21] lisinopril 10 mg tablet 10 mg PO DAILY #90 tab 11/29/20 [Rx Confirmed 03/02/21] metoprolol tartrate 25 mg tablet 25 mg PO BID #180 tab 02/26/21 [Rx Confirmed 03/02/21] PFSH Medical History Abdominal aortic aneurysm (AAA) Atherosclerotic heart disease of [place] coronary artery without angina pectoris Back pain Bladder cancer Dizziness and giddiness Dyspnea on exertion Essential (primary) hypertension Fatigue History of myocardial infarction Hyperlipidemia Impingement syndrome of left shoulder Pain in left shoulder Primary osteoarthritis, left shoulder Shoulder pain Surgical History H/O endovascular stent graft for abdominal aortic aneurysm (12/18/10) H/O transurethral destruction of bladder lesion (2009) History of coronary artery stent placement (01/28/12) Family History Other Heart disease Hyperlipidemia Social History Smoking Status: Former smoker alcohol intake: never ROS Const Const: Negative for fatigue, weakness, body ache, fever(s) or chills ENT ENT: Negative for dizziness or Nosebleed/epistaxis Cardio Chest Pain: No Palpitations: No Edema: None Muscle aches with walking: None Resp Respiratory: Negative for SOB with activity, SOB at rest, SOB orthopnea SOB lying down, Cough or paroxysmal nocturnal dyspnea GI GI: Negative nausea, vomiting blood/hematemesis, bright, red blood in stools or black,tarry stools : Negative for hematuria or frequent nighttime urination/ nocturia Musc Musc: Negative for muscle aches/ myalgia Skin Skin: Negative non-healing lesions or rash Neuro Neuro: Negative for dizziness, lightheadedness, near syncope, syncope, orthostatic symptoms or weakness Endo Endo: Negative for fatigue Allergy Allergy/Immunology: Negative for rash Cardiology Exam Const Appearance: cooperative, healthy appearing, comfortable and no acute distress Nutritional Appearance: well nourished and obese Orientation: alert, awake and oriented x3 Head Head: normal to inspection Ears: hearing grossly normal bilaterally Nose: external nose normal Face and Sinus: face symmetric Mouth: oral mucosae normal Eyes General: appearance normal, both eyes and all related structures Eyelids: eyelids normal EOM: EOM intact bilaterally Neck Neck: normal visual inspection and no JVD Carotids: normal carotid upstroke Chest Chest inspection: normal inspection of the chest, symmetric chest movement and normal respiratory effort; Negative cough Auscultation: Bilateral: Clear to Auscultation Cardio Rate: bradycardic Rhythm: regular rhythm Heart sounds: S1 normal and S2 normal; Negative rub, gallop or murmur GI GI: normal to inspection and obese Neuro General: patient alert, patient awake, patient oriented x3 and CN's II-XI intact bilaterally Skin Skin: no rashes or lesions noted Extremities Pulses: Normal: Right Posterior Tibial Pulse, Left Posterior Tibial Pulse, Right Radial Pulse and Left Radial Pulse Lower Extremity Edema: None: Bilateral Psych Psychological: normal affect Assessment and Plan Assessment and Plan (1) Atherosclerotic heart disease of [place] coronary artery without angina pectoris: Status: Chronic Qualifiers: [place] vs. transplanted heart: [place] heart Qualified Code(s): I25.10 - Atherosclerotic heart disease of [place] coronary artery without angina pectoris Orders: Orders: Lipid Profile Today Liver Profile Today Plan - Miguel Michelle SHOE SHANKER, SHOE SHANKER-C: His last stress test in October 2018 was negative for ischemia at a high workload. Patient denies any chest pain, arm pain, jaw pain, neck pain, shortness of breath, or fatigue suggestive of angina at this time. We will continue to monitor. We will not make any medication regimen changes and will continue risk factor modification. (2) History of coronary artery stent placement: Status: Chronic Comment: PTCA of mid left CFX intracoronary stent October 2010; PTCA/stent of distal LCx distal RCA 06/04/11 PCI to mid CX RCA;PCI stent to 70% in-stent restenosis of prox mid left Cx 01/28/12 Orders: Orders: Lipid Profile Today Liver Profile Today Plan - Miguel Michelle SHOE SHANKER, SHOE SHANKER-C: He will continue current medical therapy which includes aspirin, atorvastatin, lisinopril, and metoprolol tartrate. We will continue to monitor. (3) Abdominal aortic aneurysm (AAA): Status: Chronic Comment: Endovascular AAA repair 12/2010 Plan - Miguel Michelle SHOE SHANKER, SHOE SHANKER-C: His most recent office visit with vascular surgeon, Dr. Leary, will be requested for continuity of care. His most recent abdominal ultrasound from January 2021 showed no evidence of iliac aneurysm or stenosis. He will continue with lisinopril therapy. Blood pressure and heart rate control was emphasized. He was asked to contact our office if he appears to not be tolerating lisinopril so that this can be adjusted to losartan. He was asked to continue to monitor his blood pressure regularly at home. (4) Essential (primary) hypertension: Status: Chronic Plan - Miguel Michelle SHOE SHANKER, SHOE SHANKER-C: Patient's blood pressure is well-controlled. We will continue to monitor. We will not make any medication regimen changes. (5) Hyperlipidemia: Status: Chronic Qualifiers: Hyperlipidemia type: pure hypercholesterolemia Qualified Code(s): E78.00 - Pure hypercholesterolemia, unspecified; E78.0 - Pure hypercholesterolemia Orders: Orders: Lipid Profile Today Liver Profile Today Shannan - Miguel Michelle SHOE SHANKER, SHOE SHANKER-C: He was asked to undergo repeat lipid and liver panel at his earliest convenience in a fasting state. He will continue with atorvastatin 40 mg p.o. daily in the interim. Based on results of laboratory testing, further recommendation will be made. Plan Details Follow Up: Dr. Leary Office Note 12 Months ([facility]ITAL [facility]IC[facility]) Coding Level of Care Code Off vis,est,level 3 Diagnoses Atherosclerotic heart disease of [place] coronary artery without angina pectoris I25.10 [place] vs. transplanted heart: [place] heart History of coronary artery stent placement Z95.5 Abdominal aortic aneurysm (AAA) I71.4 Essential (primary) hypertension I10 Hyperlipidemia E78.00; E78.0 Hyperlipidemia type: pure hypercholesterolemia Coding Level of Care Code Off vis,est,level 3 Diagnoses Atherosclerotic heart disease of [place] coronary artery without angina pectoris I25.10 [place] vs. transplanted heart: [place] heart History of coronary artery stent placement Z95.5 Abdominal aortic aneurysm (AAA) I71.4 Essential (primary) hypertension I10 Hyperlipidemia E78.00; E78.0 Hyperlipidemia type: pure hypercholesterolemia Supplemental Info Supplemental Information Stress test from 10/21/2018: Conclusion: Exercise myocardial perfusion stress test with no evidence of ischemia noted at a high workload. No clinical angina noted. Posterolateral infarct is noted. Abdominal aortic/IVC duplex scan from 01/30/2021: Interpretation Summary No evidence of aortic iliac aneurysm or stenosis. Labs: LDL Cholesterol 89 mg/dL (0-130) HDL Cholesterol 44 mg/dL (40-) Triglycerides 106 mg/dL (-199) VLDL Cholesterol 21 mg/dL (5-40) Diagnostics: Electrocardiogram Stress Test NM Stress Test Pulmonary: No Data to Display 03/02/21 1616 <Electronically signed by Miguel KIMBLE> Date Miguel KIMBLE Cosigner Signature: Date (if applicable) CC: Dr. Terri Arguello, DO Terri Arguello DO Work Phone: Start: 01-30-2021 End: 01-30-2021 Ankle Brachial Index Comments: See Note; NOTES: [facility] [address] [place] [address]. [place] [address] Ankle Brachial Index 01/30/21 0802 MR#: [id number] Acct: [id number] Name: CHRIS PEDRAZA Rep #: [id number] : 1950 70 From: Christopher Leary MD Attending Dr: Dr. Christopher Leary MD Status: RE G CLI Ordering Dr: Christopher Leary MD Date: 01/30/21 Location: [facility] Sex: M C Admitted: Reason For Study: atherosclerosis with claudication Procedure A bilateral lower extremity continuous wave Doppler with analog waveform analysis and ankle brachial indexes. Left Segmental Pressures Left brachial= 141mmHg. Left posterior tibial artery = 194mmHg. Left dorsalis pedis artery = 162mmHg. The left dorsalis pedis waveforms are triphasic. The left posterior tibial artery waveforms are triphasic. Right Segmental Pressures Right brachial= 137mmHg. Right posterior tibial artery = 156mmHg. Right dorsalis pedis artery = 153mmHg. The right dorsalis pedis waveforms are triphasic. The right posterior tibial artery waveforms are triphasic. Indices The right ankle brachial index by the dorsalis pedis is 1.09. The right ankle brachial index by the posterior tibial artery is 1.11. The left ankle brachial index by the posterior tibial artery is 1.38. The left ankle brachial index by the dorsalis pedis is 1.15. VL/Ankle Brachial Index Interpretation Summary No evidence of occlusive disease at rest with an ANGELA 1.11 on the right and 1.38 on the left with bilateral triphasic flow all 4 vessels at the. _ Ordering Physician: Christopher Leary Performed By: Danny Veloz RVT and Student 01/30/21 1004 Date Christopher Leary MD CC: Dr. Christopher Leary MD; Dr. Terri Arguello DO Date Dictated: 01/30/21801 Date Transcribed: 01/30/21 1004 Surgical Training Specialist: Signed Terri Arguello DO Work Phone: Start: 01-30-2021 End: 01-30-2021 Abd Aortic/IVC Duplex scan Comments: See Note; NOTES: [facility] [address] [place] [address] Abd Aortic/IVC Duplex scan 01/30/21815 MR#: [id number] Acct: [id number] Name: CHRIS PEDRAZA Rep #: [id number] : 1950 70 From: Christopher Leary MD Attending Dr: Dr. Christopher Leary MD Status: G CLI Ordering Dr: Christopher Leary MD Date: 01/30/21 Location: [facility] Sex: M C Admitted: Reason For Study: AAA Aorta Measurements Aorta Doppler Measurements Proximal aorta measures2.14 x 2.11cm. in cross- Peak systolic flow velocities within the proximal sectional axis. aorta measure 59.8 cm/sec. Proximal aorta measures2.18cm. in longitudinal Peak systolic flow velocities within the mid aorta axis. measure 45.9 cm/sec. Mid aorta measures2.14 x 2.05cm. in cross- Peak systolic flow velocities within the distal sectional axis. aorta measure 41.5 cm/sec. Mid aorta measures2.16cm. in longitudinal axis. Distal aorta measures2.74 x 2.33cm. in cross- sectional axis. Distal aorta measures2.38cm. in longitudinal axis. Left Iliac Artery Left iliac artery measures 1.26 x 1.38 cm. in the cross-sectional axis. Left iliac artery measures 1.16 cm. in the longitudinal axis. Peak systolic velocity in the left iliac artery measures 205.7 cm/sec. Right Iliac Artery Right iliac artery measures .8 x .87 cm. in the cross-sectional axis. Right iliac artery measures .85 cm. in the longitudinal axis. Peak systolic velocity in the right iliac artery measures 151.9 cm/sec. Procedure Aorta IVC Iliac vasculature or bypass grafts 30933. The exam was diagnostic. Exam performed in department. VL/Abd Aortic/IVC Duplex scan Interpretation Summary No evidence of aortic iliac aneurysm or stenosis. _ Ordering Physician: Christopher Leary Performed By: Danny Veloz RVT and Student 01/30/21 1004 Date Christopher Leary MD CC: Dr. Christopher Leary MD; Dr. Terri Arguello, Date Dictated: 01/30/2116 Date Transcribed: 01/30/21 1004 Surgical Training Specialist: Signed Terri Arguello DO Work Phone: Start: 03-08-2020 End: 03-08-2020 Operative Report Comments: See Note; NOTES: [facility] Medical Records Department [address] [place] [address] Operative Report 03/08/20 1144 MR#: [id number] Acct: [id number] Name: CHRIS PEDRAZA Rep #: [id number] : 1950 70 From: Derrek Gann MD PCP: Dr. 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 He was taken back to the operating room at the smooth induction of general anesthesia he was placed in dorsolithotomy position. The penis and testicles were prepped and draped in usual sterile fashion went in the bladder with a 21 [place] rigid cystourethroscope, the entire bladder was clear of any tumors he had a prior resection of the prostate prior TURP within the bladder identified the right ureter orifice to look to get been resected back and emanating from the right ureteral orifices small papillary tumors. I then placed a wire up the right ureteral orifice went over the wire with the flexible ureteroscope inspected the upper pole midpole lower pole kidney inspected the ureter all the way down and no other tumors were seen except for the small tumors at the distal right ureteral orifice. I then switched over to a resectoscope and resected the tumor at the ureteral orifice once this was resected handed as a specimen was about 1 cm in size and then after the resection was completed then I advanced a wire up the ureter and over the wire place a stent patient anesthetic was reversed and taken back to PACU good condition plan to see him back in about a week to review the pathology but will leave the stent in for about a month to let it heal. Type of Anesthesia:: General Drains: stent right - Admit VTE Documentation VTE Present on Admission: No VTE Mechan Device Prophylaxis: SCD's 03/08/20 1147 <Electronically signed by Derrek Gann MD> Date Derrek Gann MD CC: Dr. Derrek Gann MD; Dr. Terri Arguello, DO Signed Terri Arguello Start: 03-08-2020 End: 03-08-2020 Discharge Instruction Comments: See Note; NOTES: [facility] Medical Records Department [address] [place] [address] Instructions for Home/Discharge Instructions 03/08/20 1127 MR#: [id number] Acct: [id number] Name: PEDRAZACHRIS Rep #: [id number] : 1950 70 From: Derrek Gann MD PCP: Dr. Terri Arguello DO Status:REG [facility] [place] Discharge Diet: Light diet - advance as tolerated Discharge Activity: Return to Normal Activity Allergies/Adverse Reactions: Allergies clopidogrel [From Plavix] Allergy (Verified 03/08/20 08:40) Anaphylaxis Medications to take at Discharge atorvastatin 40 mg tablet 40 mg PO DAILY #90 tab 05/17/19 lisinopril 10 mg tablet 10 mg PO DAILY #90 tab 11/08/19 nitroglycerin 0.4 mg sublingual tablet 0.4 mg SUBLINGUAL PRN PRN #25 tab 01/31/20 metoprolol tartrate 25 mg tablet 25 mg PO BID #180 tab 02/16/20 Aspirin E.C. [Ecotrin] 81 mg PO DAILY@0800 02/29/20 Ciprofloxacin [Cipro] 500 mg PO BID #6 tab 03/08/20 Hydrocodone Bitart/Apap 5-325 [[place] 5MG-325MG] 1 tablet PO Q4H PRN PRN 5 Days #14 tablet 03/08/20 The following prescriptions were given: Ciprofloxacin [Cipro] 500 mg PO BID #6 tab Transmission Status: Pending to [facility]/pharmacy #[id number] Hydrocodone Bitart/Apap 5-325 [[place] 5MG-325MG] 1 tablet PO Q4H PRN PRN 5 Days #14 tablet PRN Reason: Pain Transmission Status: Received by [facility]/pharmacy #[id number] Primary Care Physician: Terri Arguello DO [Primary Care Provider] - Test Results: Test results from this visit will be discussed in further detail at your follow-up appointment, if applicable. Please Follow Up With: Derrek Gann MD When: in 2 weeks, please call to make an appointment. 03/08/20 1127 <Electronically signed by Derrek Gann MD> Date Derrek Gann MD CC: Dr. Terri Arguello DO Signed Terri Arguello Start: 03-08-2020 End: 03-08-2020 History and Physical Exam Comments: See Note; NOTES: [facility] Medical Records Department [address] [place] [address] History and Physical 03/08/20 1124 MR#: [id number] Acct: [id number] Name: CHRIS PEDRAZA Rep #: [id number] : 1950 70 From: Derrek Gann MD PCP: Dr. Terri Arguello, DO Status:REG [facility] Y Location: [place] [address] History of Present Illness Date of Admission: 03/08/20 Chief Complaint: Bladder tumor ureteral tumor The patient is a 70 year old male who was found to have a ureteral tumor coming from the right ureteral orifice right at the bladder ureteral junction Past Medical History Past Medical History (Chronic Problems): Chronic Problems (Last Updated 02/24/20 @ 17:04 by Lakia Bailey) Abdominal aortic aneurysm (AAA) (Chronic) Endovascular AAA repair 12/2010 Atherosclerotic heart disease of [place] coronary artery without angina pectoris (Chronic) History of coronary artery stent placement (Chronic 01/28/12) PTCA of mid left CFX intracoronary stent October 2010; PTCA/stent of distal LCx distal RCA 06/04/11 PCI to mid CX RCA;PCI stent to 70% in-stent restenosis of prox mid left Cx 01/28/12 Essential (primary) hypertension (Chronic) History of myocardial infarction (Chronic) 10/22 Hyperlipidemia (Chronic) Bladder cancer (Chronic) Medical History: Medical History (Last Updated 02/24/20 @ 17:04 by Lakia Bailey) Abdominal aortic aneurysm (AAA) (Chronic) I71.4 Endovascular AAA repair 12/2010 Atherosclerotic heart disease of [place] coronary artery without angina pectoris (Chronic) I25.10 Essential (primary) hypertension (Chronic) I10 History of myocardial infarction (Chronic) I25.2 10/22 Hyperlipidemia (Chronic) E78.5 Bladder cancer (Chronic) C67.9 Impingement syndrome of left shoulder M75.42 Pain in left shoulder M25.512 Primary osteoarthritis, left shoulder M19.012 Back pain M54.9 Shoulder pain M25.519 Dizziness and giddiness (Inactive) R42 Dyspnea on exertion (Inactive) R06.09 Fatigue (Inactive) R53.83 Allergies clopidogrel [From Plavix] Allergy (Verified 03/08/20 08:40) Anaphylaxis Home Medications: Ambulatory Orders Medication Instructions Recorded atorvastatin 40 mg tablet 40 mg PO DAILY #90 tab 05/17/19 lisinopril 10 mg tablet 10 mg PO DAILY #90 tab 11/08/19 nitroglycerin 0.4 mg sublingual 0.4 mg SUBLINGUAL PRN PRN #25 tab 01/31/20 tablet metoprolol tartrate 25 mg tablet 25 mg PO BID #180 tab 02/16/20 Aspirin E.C. [Ecotrin] 81 mg PO DAILY@0800 02/29/20 Surgical History: Surgical History (Last Updated 02/24/20 @ 17:04 by Lakia Bailey) History of coronary artery stent placement (Chronic) Onset Date: 01/28/12 Z95.5 PTCA of mid left CFX intracoronary stent October 2010; PTCA/stent of distal LCx distal RCA 06/04/11 PCI to mid CX RCA;PCI stent to 70% in-stent restenosis of prox mid left Cx 01/28/12 H/O endovascular stent graft for abdominal aortic aneurysm Onset Date: 12/18/10 Z95.828 Aortobi-iliac stent graft repair 12/18/2010 H/O transurethral destruction of bladder lesion Onset Date: 2009 Z98.890 chemo Surgical History: no surgical history Smoking Status: Former smoker Tobacco Use: Non-smoker VTE Information - Inpt Only VTE Present on Admission: No - Physical Exam Vitals/I O's: Vital Signs Temp Pulse Resp BP Pulse Ox 97.7 F L 45 L 15 135/83 H 99 03/08/20 08:48 03/08/20 08:48 03/08/20 08:48 03/08/20 08:48 03/08/20 08:48 Oxygen Delivery Method Room Air Weight: 97.7 kg Body Mass Index (BMI) 31.3 General: Alert, Oriented x3, Cooperative HEENT: Atraumatic, PERRLA, EOMI, Normocephalic Neck: Supple, No JVD, Negative Carotid Bruits Lungs: Clear to auscultation, Normal air movement Cardiovascular: Regular rate, No murmurs Abdomen: Bowel Sounds Present, Soft, Non Tender Extremities: No edema, Capillary Refill Less than 3 Seconds Skin: No rashes, No breakdown Musculoskeletal: No Tenderness to Palpation of Joints or Extremities Neurological: Cranial nerves II-XII grossly intact Psych/Mental Status: Normal Affect, Appropriate Current Medications Cefazolin Sodium 2 gm/ Sodium (Chloride) 110 mls @ 150 mls/hr IV PREOP ONE Stop: 03/08/20 11:38 Lactated Ringer's () 1,000 mls @ 100 mls/hr IV .Q10H CA Last Admin: 03/08/20 09:02 Dose: 100 mls/hr Documented by: Assessment/Plan Plan to proceed with cystoscopy right retrograde pyelogram right ureteroscopy biopsy and also transurethral resection of the bladder tumor coming from the ureteral orifice. 03/08/20 1125 <Electronically signed by Derrek Gann MD> Date Derrek Gann MD Cosigner Signature: Date (if applicable) CC: Dr. Derrek Gann MD; Dr. Terri Arguello, DO Signed Terri Arguello Start: 03-01-2020 End: 03-06-2020 12 Lead EKG Comments: See Note; NOTES: [facility] Cardi[facility] Services [address] [place] [address] 12 Lead EKG 03/01/20 0620 MR#: [id number] Acct: [id number] Name: CHRIS PEDRAZA Rep #: [id number] : 1950 69 From: Lopez Mckeon MD Attending Dr: Dr. Derrek Gann MD Status: PRE OHC Ordering Dr: Tom Vo MD Date: 03/01/20 Location: [facility] Sex: M C Admitted: Test Reason : PRE OP Blood Pressure : / mmHG Vent. Rate : 043 BPM Atrial Rate : 043 BPM P-R Int : 182 ms QRS Dur : 110 ms QT Int : 464 ms P-R-T Axes : 060 034 073 degrees QTc Int : 392 ms Marked sinus bradycardia with sinus arrhythmia Abnormal ECG Confirmed by LOPEZ MCKEON ([id number]), video news editor BRIGETTE MORALES ([id number]) on 03/06/2020 9:47:51 AM Referred By: Derrek Gann Confirmed By:LOPEZ MCKEON 03/06/20 0947 Date Lopez Mckeon MD CC: Dr. Tom Vo MD; Dr. Derrek Gann MD; Dr. Terri Arguello DO Signed Terir Arguello Start: 02-24-2020 End: 02-24-2020 Cardiology Visit Report Comments: See Note; NOTES: [facility] [address] [place] [address] OFFICE VISIT Date of Service: 02/24/20 MR#: [id number] Acct: [id number] Name: CHRIS PEDRAZA Rep #: [id number] : 1950 Provider: Dr. Shawn Falcon MD Age/Sex: 69/M Location: [facility] [place] Status: Signed HPI HPI History of Present Illness Details: CHRIS PEDRAZA, is a 69 M who presents to the office today for a follow-up visit. He is a gentleman with a history of coronary artery disease with a posterolateral myocardial infarction angioplasty and stenting of the circumflex artery. He had repeat stenosis post angioplasty and stenting of the distal right coronary artery and angioplasty of the circumflex artery. He also has an abdominal aortic aneurysm for which she is undergone repair in 2010 via endograft. He has been asymptomatic with respect to the above and was previously following up with a vascular surgeon in [place]. He returns for routine follow-up visit he denies any chest pain or shortness of breath or paroxysmal nocturnal dyspnea or pedal edema he has had no neck arm or jaw discomfort suggest angina no dizziness or diaphoresis no near syncope or syncope. He has been compliant with all his medications. You do remember that he exercised to a high metabolic workload in 2019. His physical exam today demonstrates clear lung marroquin regular rate and rhythm no pedal edema. His blood pressure is under excellent control. Intake Vital Signs 08/13/20 Height 5 ft 8.5 in 02/24/20 Weight: 216 lb 02/24/20 BP 121/69 H 02/24/20 Respiration 16 02/24/20 Pulse 59 L 02/24/20 Pulse Oximetry (%) 95 Intake Visit Reasons: 1 Y FU Allergies clopidogrel [From Plavix] Allergy (Verified 06/16/19 16:00) Anaphylaxis Medications atorvastatin 40 mg tablet 40 mg PO DAILY #90 tab 05/17/19 [Rx Confirmed 02/24/20] lisinopril 10 mg tablet 10 mg PO DAILY #90 tab 11/08/19 [Rx Confirmed 02/24/20] nitroglycerin 0.4 mg sublingual tablet 0.4 mg SUBLINGUAL PRN PRN #25 tab 01/31/20 [Rx Confirmed 02/24/20] metoprolol tartrate 25 mg tablet 25 mg PO BID #180 tab 02/16/20 [Rx Confirmed 02/24/20] [facility] Medical History Abdominal aortic aneurysm (AAA) (Chronic) Atherosclerotic heart disease of [place] coronary artery without angina pectoris (Chronic) Essential (primary) hypertension (Chronic) History of myocardial infarction (Chronic) Hyperlipidemia (Chronic) Bladder cancer (Chronic) Impingement syndrome of left shoulder (Chronic) Pain in left shoulder (Chronic) Primary osteoarthritis, left shoulder (Chronic) Back pain (Resolved) Shoulder pain (Resolved) Dizziness and giddiness (Inactive) Dyspnea on exertion (Inactive) Fatigue (Inactive) Surgical History History of coronary artery stent placement (Chronic 01/28/12) History of abdominal aortic aneurysm (AAA) repair (Acute 2010) H/O transurethral destruction of bladder lesion (Resolved 2009) Family History Other Heart disease Hyperlipidemia Social History (Updated 02/24/20 @ 16:[address] Shawn Falcon MD) Smoking Status: Former smoker alcohol intake: never ROS Const Const: Negative for fatigue, weakness, headache(s), frequent falls, difficulty sleeping or excessive sweating Eyes Eyes: Negative for loss of peripheral vision, transient loss of vision, blurry vision, double vision or tunnel vision ENT ENT: Negative for headache(s), dizziness, Nosebleed/epistaxis or balance problems Cardio Chest Pain: No Palpitations: No Edema: None Muscle aches with walking: None Resp Respiratory: Negative for SOB with activity, SOB at rest, SOB orthopnea SOB lying down, Cough or paroxysmal nocturnal dyspnea GI GI: Negative nausea, vomiting, heartburn or black,tarry stools : Negative for hematuria Musc Musc: Negative for muscle aches/ myalgia, muscle weakness, joint pain or balance problems Skin Skin: Negative non-healing lesions, rash or unusual bruising Neuro Neuro: Negative for dizziness, lightheadedness, near syncope, syncope, orthostatic symptoms, frequent falls, headache(s), weakness, blurry vision, double vision or lack of coordination Macario Hematologic/Lymphatic: Negative for easy bleeding or easy bruising Endo Endo: Negative for fatigue, excessive sweating or increased thirst/drinking Psych Psych: Negative for anxiety or depression Allergy Allergy/Immunology: Negative for hives, Negative for rash Cardiology Exam Const Appearance: cooperative, healthy appearing, no acute distress, well developed and well groomed Nutritional Appearance: average body habitus and well nourished Orientation: alert, awake and oriented x3 Head Head: normal to inspection, normocephalic and atraumatic Ears: hearing grossly normal bilaterally and external ears normal Nose: external nose normal, nares normal, nasal mucous membranes and turbinates normal, septum normal, no nasal discharge Face and Sinus: face symmetric Mouth: oral mucosae normal, tongue normal, oropharynx normal and moist mucous membranes Teeth and gingiva: dentition normal Throat: posterior oropharynx normal, tonsils normal and uvula midline Eyes General: appearance normal, both eyes and all related structures Eyelids: eyelids normal Conjunctivae: conjunctivae normal Pupils: PERRL, normal by confrontation and accommodation normal EOM: EOM intact bilaterally Neck Neck: normal visual inspection, trachea midline and no JVD JVD: +5 Carotids: normal carotid upstroke and bounding pulses Chest Chest inspection: normal inspection of the chest, symmetric chest movement and normal respiratory effort Auscultation: Bilateral: Clear to Auscultation Cardio Palpation: normal PMI Rate: regular rate Rhythm: regular rhythm Heart sounds: S1 normal, S2 normal and normal, physiologic split S2; negative rub, gallop or murmur GI GI: normal to inspection, soft, no hepatosplenomegaly and bowel sounds present Neuro General: alert, awake, oriented x3, gait normal, moves all extremities and no focal sensory deficit Skin Skin: no rashes or lesions noted Extremities Pulses: Normal: Right Femoral Pulse, Left Femoral Pulse, Right Dorsalis Pedis Pulse, Left Dorsalis Pedis Pulse, Right Posterior Tibial Pulse, Left Posterior Tibial Pulse, Right Radial Pulse, Left Radial Pulse Lower Extremity Edema: None: Bilateral Musculoskel Musculoskeletal: No joint tenderness Psych Psychological: normal affect Assessment Plan 1. History of coronary artery stent placement Z95.5 PTCA of mid left CFX intracoronary stent October 2010; PTCA/stent of distal LCx distal RCA 06/04/11 PCI to mid CX RCA;PCI stent to 70% in-stent restenosis of prox mid left Cx 01/28/12 Plan He does have a history of coronary artery disease status post angioplasty as noted above. His stress test from a year ago was excellent with a high metabolic workload he remains on his current medications no changes will be made. He can discontinue his aspirin temporarily before his bladder surgery. 2. Essential (primary) hypertension I10 Plan His blood pressure remains under excellent control at this particular time and I would not recommend that we make any changes with respect to the above. 3. Abdominal aortic aneurysm (AAA) I71.4 Endovascular AAA repair 2010 Plan He did have a previous endovascular repair in 2010. We have recommended that he follow-up with the vascular surgeon here in [place]. This will be arranged for him. 4. Bladder cancer C67.9 Plan He tells me that he has been recently diagnosed with bladder cancer and would be requiring surgery. I do not think that any additional testing needs to be performed at this time he appears to be low cardiovascular risk at this time. He can discontinue his aspirin a few days prior to the above surgery. Plan Detail 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 ([facility]) Coding Level of Care Code Off vis,est,level 3 Diagnoses History of coronary artery stent placement Z95.5 Essential (primary) hypertension I10 Abdominal aortic aneurysm (AAA) I71.4 Bladder cancer C67.9 Coding Level of Care Code Off vis,est,level 3 Diagnoses History of coronary artery stent placement Z95.5 Essential (primary) hypertension I10 Abdominal aortic aneurysm (AAA) I71.4 Bladder cancer C67.9 Supplemental Info Supplemental Information Labs LDL Cholesterol 89 mg/dL (0-130) 10/19/18 HDL Cholesterol 44 mg/dL (40-) 10/19/18 Triglycerides 106 mg/dL (-199) 10/19/18 VLDL Cholesterol 21 mg/dL (5-40) 10/19/18 Diagnostics Stress Test Nuclear Medicine 10/21/18 Stress Test 10/21/18 02/24/20 1647 <Electronically signed by Shawn Falcon MD> Date Shawn Falcon MD Cosigner Signature: Date (if applicable) CC: Dr. Terri Arguello, DO Terri Arguello Start: 08-25-2019 Dup-scan aorta ivc iliac vascl/bpgs complete Miguel De Work Phone: Start: 06-16-2019 End: 06-16-2019 Urgent Care Visit Report Comments: See Note; NOTES: [facility] [address] [place] [address] OFFICE VISIT Date of Service: 06/16/19 MR#: [id number] Acct: [id number] Name: PEDRAZACHRIS GARCIA Liliana Rep #: [id number] : 1950 Provider: Agusto VU Age/Sex: 69/M Location: [facility] Status: Signed Intake Vital Signs06/16/19 Body Mass Index (BMI) 31.7 06/16/19 Height 5 ft 8.5 in Intake Visit Reasons: Left shoulder, [employer] Chief Complaint: Left shoulder injury Allergies clopidogrel [From Plavix] Allergy (Verified 06/16/19 16:00) Anaphylaxis Medications Nitroglycerin 0.4 mg SL PRN PRN 07/24/16 [History Confirmed 06/16/19] lisinopril 10 mg tablet 10 mg PO DAILY #90 tab 11/05/18 [Rx Confirmed 06/16/19] metoprolol tartrate 25 mg tablet 25 mg PO BID #180 tab 01/13/19 [Rx Confirmed 06/16/19] atorvastatin 40 mg tablet 40 mg PO DAILY #90 tab 05/17/19 [Rx Confirmed 06/16/19] [facility] Medical History (Updated 06/16/19 @ 16:01 by Ariane Thomas) History of myocardial infarction (Chronic) Atherosclerotic heart disease of [place] coronary artery without angina pectoris (Chronic) Hyperlipidemia (Chronic) 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) Hypertension (Chronic) Back pain (Acute) Bladder cancer (Acute) Heart disease (Acute) Shoulder pain (Acute) Dizziness and giddiness (Resolved) Dyspnea on exertion (Resolved) Fatigue (Resolved) Surgical History Postsurgical percutaneous transluminal coronary angioplasty (PTCA) status (Chronic) Family History Other Heart disease Hyperlipidemia Social History (Updated 06/16/19 @ 16:25 by HORACE Villaseñor) Smoking Status: Former smoker alcohol intake: never HPI HPI Chief Complaint: Left shoulder injury Details: CHRIS PEDRAZA, is a 69 M who presents to the office today for follow-up status post left shoulder injury. Patient while at work on October 12, 2018 falling landing on right shoulder/upper arm with persistent chronic aching discomfort and intermittent popping with range of motion appreciated to the same. He notes finally having his initial evaluation at [facility]'s emergency department where radiographs revealed no acute osseous pathology and was treated and released the same day. His pain is aggravated with keeping his arm above shoulder level for extended periods of time alleviated minimally with resting to side. He notes no prior history of injuries to the same prior to October 12 of this year. He is right-hand dominant. He notes no other associated symptoms no other alleviating factors. ROS Const Constitutional: No other (ROS negative x10 other than as noted above) Exam Const General: cooperative, healthy appearing, comfortable, no acute distress Nutritional Appearance: average body habitus Orientation: alert, awake, oriented x3 Chest Chest palpation AND inspection: normal inspection of the chest Resp Effort AND Inspection: normal respiratory effort, able to speak in complete sentences, symmetric chest movement Cardio Rate: regular rate Pulses: radial pulses present Skin General: no rashes or lesions noted Neuro General: alert, awake, oriented x3, gait normal Cognition: normal cognition Speech: speech normal Gait: normal gait Motor: muscle tone normal throughout Sensory Exam: no sensory deficits noted Extrem General: normal to inspection, full ROM (Pain and intermittent popping left shoulder), normal capillary refill, normal exam except as noted (Negative empty can/supination/Apley scratch/apprehension. No ACJ palpable tenderness.), no joint enlargement Psych Appearance: grossly normal Mental Status: mental status grossly normal Mood: congruent mood Affect: normal affect Speech and Movement: speech and movement normal Attitude: cooperative Thought Process: normal Thought Content: normal Judgment: judgment good Assessment AND Plan Problems 1. Pain in left shoulder M25.512 2. Impingement syndrome of left shoulder M75.42 3. Primary osteoarthritis, left shoulder M19.012 Plan - consider internal derangement See work restrictions as noted on today's [employer] 14. Home range of motion exercises as instructed today. C9 submitted today to request physical therapy to evaluate and treat. Follow-up with the now clinic in about 4 weeks for reevaluation, sooner should symptoms worsen or any other concerns develop; consider additional diagnostics at next follow-up should symptoms not improve. Patient states acknowledging understanding all the above. This note was generated with eduFire dictation software. It may contain incorrect words, spelling, and punctuation that were not noted in checking the note before signing. Coding Level of Care Code Off vis,est,level 3 Diagnoses Pain in left shoulder M25.512 Impingement syndrome of left shoulder M75.42 Primary osteoarthritis, left shoulder M19.012 06/16/19 1625 <Electronically signed by Agusto VU> Date Agusto VU Cosigner Signature: Date (if applicable) CC: Terri Arguello Start: 06-11-2019 End: 06-11-2019 Emergency Department Summary Comments: See Note; NOTES: [facility] Medical Records Department [address] [place] [address] Emergency Department Summary 06/11/19 1412 MR#: [id number] Acct: [id number] Name: CHRIS PEDRAZA Rep #: [id number] : 1950 69 From: Javier Carnes MD PCP: Terri Arguello DO Status: PRE ER History of Present Illness Chief Complaint: Upper Extremity Injury Informant: Patient Onset: Month(s) Context: Sudden Onset Timing: Continuous Quality: Pain Location: Left shoulder region Current Severity: Mild Maximum Severity: Severe Worsened by: Use of left upper extremity and especially abduction Relieved by: Nothing Associated Symptoms: No other symptoms Narrative: Patient is a 69-year-old [id number] 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 He states he was on a ladder beginning of September. He apparently fell. He had outpatient x-rays performed September 25. Those x-rays were reviewed by me and there is evidence of arthritis of the AC joint and the glenohumeral junction/joint. Patient states he has been taking ibuprofen. He states the pain has awakened him from sleep and if he puts his hand behind his head it will alleviate the pain so he can sleep for an hour. He denies cardiac or respiratory symptoms. He denies radicular pain. He localizes the pain to the glenohumeral joint and left trapezius area. Occasionally the pain will involve the lateral proximal left arm. Prior similar symptoms: Yes Recent Illness/Hospitalization: No - Past Medical History (1) Atherosclerotic heart disease of [place] coronary artery without angina pectoris Status: Chronic (2) History of myocardial infarction Status: Chronic Comment: 10/22 (3) Hyperlipidemia Status: Chronic (4) Hypertension Status: Chronic (5) MCFP use of drug Status: Chronic Past Medical History - Allergies and Home Meds Allergies/Adverse Reactions: Allergies clopidogrel [From Plavix] Allergy (Verified 10/08/18 15:43) Anaphylaxis Primary Care Physician: Terri Arguello DO [Primary Care Provider] - Prior records reviewed: Yes Lives: Spouse/ Significant Other Smoking Status: Former smoker Alcohol: None Drugs: None Review of Systems General: Denies: Chills, Fever, Sweats, Weight loss Eyes: Denies: Visual changes - bilaterally, Blurred Vision - bilaterally Cardiovascular: Denies: Chest pain, Palpitations Respiratory: Denies: Dyspnea, Cough, Dyspnea on exertion Musculoskeletal: Reports: Extremity Pain. Denies: Myalgias, Arthralgias, Neck pain, Back pain, Swelling Skin: Denies: Rash, Wounds Neurological: Denies: Headache, Weakness, Parasthesia, Numbness Physical Exam Vital Signs/Narrative: Vital Signs 06/11/19 13:34 98.1 F 60 16 153/80 H 99 Inital Vital Signs reviewed: Yes General: Well nourished, Well developed, No Acute Distress Head: Normocephalic, Atraumatic Eyes: Perrl, EOMI. Negative for: Pale conjunctiva, Scleral icterus ENT: Negative for: Moist mucous membranes, No rhinorrhea Neck: Supple, Nontender, No lymphadenopathy, No JVD, - Cardiovascular: Regular rate, Regular rhythm, No murmurs, Normal S1, Normal S2 Respiratory: No distress, CTA bilaterally, Chest nontender Back: Negative for: Nontender, Normal Inspection Extremities: No edema, - - Is pain palpation over the left trapezius and proximal left shoulder. Abduction past 90 degrees causes significant discomfort. Internal/external rotation causes discomfort. Axillary, median, radial and ulnar function are intact. Biceps, brachialis and triceps reflex are 2+ and symmetric.. Negative for: Nontender Skin: Normal color, No rash, No Trauma. Negative for: Cyanosis, Diaphoresis, Jaundice Neurological: Alert, Oriented x3, Cranial nerves II-XII grossly intact, Normal Strength, Normal Sensation, Normal DTR Psychological: Normal affect Diagnostic/Tx/Re-eval - Medical Decision Making My records were reviewed. Since he had x-ray greater than 6 months ago when he fell and there was no fracture at that time there is no indication for repeat x-ray. Patient has been informed that he has arthritis involving the AC joint and the glenohumeral joint. This may be contributing to his pain. With him having sniffing and pain with abduction past 90 degrees he may have developed impingement syndrome. Since this is work-related we will have him follow-up with corporate care. Patient is been informed there is nothing more to do at this time. ED Disposition - Plan for ED Patient: Disposition: Home or Assisted Living Diagnosis: Chronic left shoulder pain, Arthritis of left glenohumeral joint, Impingement syndrome, shoulder, left Instructions: Shoulder Impingement Syndrome, Osteoarthritis: Coping with Pain, ANTI-INFLAMMATORY, General Referrals: Terri Arguello DO [Primary Care Provider] - Corporate[facility]Care [GROUP OF PHYSICIANS] - 3-5 Days What to do if you have Problems For any increased pain, shortness of breath, bleeding, nausea or vomiting, chest pain, or any unexpected problems, contact your Primary Care Provider. Call [facility] ([phone]) or report to the closest Emergency Room. Call 911 if necessary. 06/11/19 1419 <Electronically signed by Javier Carnes MD> Date Javier Carnes MD Cosigner Signature (If Indicated): Date CC: [facility]; Terri Alexander Start: 10-21-2018 End: 10-21-2018 Stress Report Comments: See Note; NOTES: [facility] Cardiovascular Services [address] [place] [id number] MR#: [id number] Acct: [id number] Name: CHRIS PEDRAZA Rep #: [id number] : 1950 68 From: Shawn Falcon MD Primary Care: Terri Arguello DO Status: REG CLI Ordering Dr: Alex: Bhavesh Chaney Stress Test Report Exercise myocardial perfusion stress test. 68-year-old man with a history of coronary artery disease. Medications aspirin, nitroglycerin, lisinopril, metoprolol, atorvastatin. Stress protocol: Resting EKG demonstrates sinus bradycardia with a rate of 54 bpm normal intervals are noted resting blood pressure 154/82 mmHg. The patient exercised according to the regular Joshua protocol for total duration of 9 minutes. The maximum heart rate attained was 141 bpm is 91% maximum predicted heart rate the maximum workload was 10.1 metabolic equivalents. Patient maintained sinus rhythm throughout the recording with occasional premature ventricular complexes noted. At rest nonspecific ST-T wave changes were noted. At peak exercise there was 1.[address] depression noted in leads II, III and I 0.7 and aVF. There was 1.[address] depression noted in lead V5 and V6 suggestive of ischemia. The resting blood pressure was 154/82 with a peak blood pressure 174/68 mmHg. Chest pain was noted. Myocardial perfusion protocol. 14.1 mCi of technetium 99m sestamibi was injected at rest. The patient exercised according to regular Joshua protocol for total duration of 9 minutes at peak exercise 44.6 mCi of technetium 99m sestamibi was injected stress images were obtained stress and rest images were reconstructed and compared in the short axis vertical long horizontal long axis. Gated images were also obtained per Perfusion SPECT analysis: Review of the stress images demonstrate normal cardiac silhouette size. There is a medium-sized defect noted in the inferior basal and mid lateral wall. This appears to be present on the stress and resting images suggestive of previous infarct in the inferior basal and lateral region. No areas of reversibility are noted suggest ischemia. This does correspond to a posterolateral myocardial infarction. Gated SPECT analysis: The gated ejection fraction is noted to be 49%. Conclusion: Exercise myocardial perfusion stress test with no evidence of ischemia noted at a high workload. No clinical angina noted. Posterolateral infarct is noted. 10/21/1845 <Electronically signed by Shawn Falcon MD> Date Shawn Falcon MD CC: Shawn Falcon MD; Terri Arguello DO Date Dictated: 10/21/1834 Date Transcribed: 10/21/18833 Surgical Training Specialist: [place] Signed Terri Arguello Start: 10-08-2018 End: 10-08-2018 Cardiology Visit Report Comments: See Note; NOTES: [facility] [address] [place] [address] OFFICE VISIT Date of Service: 10/08/18 MR#: [id number] Acct: [id number] Name: CHRIS PEDRAZA Rep #: [id number] : 1950 Provider: Shawn Falcon MD Age/Sex: 68/M Location: [facility] Status: Signed HPI HPI Details: CHRIS PEDRAZA, is a 68 M who presents to the office today for he is a gentleman with a history of coronary artery disease with a posterolateral myocardial infarction angioplasty and stenting of the circumflex artery. He had repeat stenosis post angioplasty and stenting of the distal right coronary artery and angioplasty of the circumflex artery. He returns for routine follow-up visit he denies any chest pain or shortness of breath or paroxysmal nocturnal dyspnea or pedal edema he has had no neck arm or jaw discomfort suggest angina no dizziness or diaphoresis no near syncope or syncope. He has been compliant with all his medications. You do remember that he exercised to a high metabolic workload in 2014. His physical exam today demonstrates clear lung marroquin regular rate and rhythm no pedal edema. 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 Gaming Required: No Accompanied by: none Is patient in pain?: No Allergies clopidogrel [From Plavix] Allergy (Verified 10/08/18 15:43) Anaphylaxis Medications Aspirin [Aspirin EC] 81 mg PO DAILY 07/24/16 [History Confirmed 10/08/18] Nitroglycerin 0.4 mg SL PRN PRN 07/24/16 [History Confirmed 10/08/18] lisinopril 10 mg tablet 10 mg PO DAILY #90 tab 10/07/17 [Rx Confirmed 10/08/18] metoprolol tartrate 25 mg tablet 25 mg PO BID #180 tab 10/07/17 [Rx Confirmed 10/08/18] atorvastatin 40 mg tablet 40 mg PO DAILY #90 tab 04/21/18 [Rx Confirmed 10/08/18] [facility] Medical History History of myocardial infarction (Chronic) Atherosclerotic heart disease of [place] coronary artery without angina pectoris (Chronic) Hyperlipidemia (Chronic) MCFP use of drug (Chronic) Hypertension (Chronic) Dizziness and giddiness (Resolved) Dyspnea on exertion (Resolved) Fatigue (Resolved) Surgical History Postsurgical percutaneous transluminal coronary angioplasty (PTCA) status (Chronic) Family History Other Heart disease Hyperlipidemia Social History Smoking Status: Former smoker ROS Const Const: Negative for fatigue, weakness, headache(s), frequent falls, night sweats, daytime sleepiness or excessive sweating Eyes Eyes: Negative for blind spots, loss of peripheral vision, transient loss of vision, blurry vision or double vision ENT ENT: Negative for headache(s), dizziness, Nosebleed/epistaxis, balance problems, lip swelling or tongue swelling Cardio Chest Pain: No Palpitations: No Edema: None Muscle aches with walking: None Resp Respiratory: Negative for SOB with activity, SOB at rest, SOB orthopnea\SOB lying down, Cough or paroxysmal nocturnal dyspnea GI GI: Negative nausea, vomiting, heartburn, bright, red blood in stools or black,tarry stools : Negative for hematuria Musc Musc: Negative for muscle aches/ myalgia, muscle weakness, joint pain or balance problems Skin Skin: Negative non-healing lesions, rash or unusual bruising Neuro Neuro: Negative for dizziness, lightheadedness, orthostatic symptoms, frequent falls, headache(s), weakness, blurry vision, double vision or lack of coordination Macario Hematologic/Lymphatic: Negative for easy bleeding or easy bruising Endo Endo: Negative for fatigue, cold intolerance, heat intolerance, excessive sweating, increased thirst/drinking or hair loss Psych Psych: Negative for anxiety or depression Allergy Allergy/Immunology: Negative for throat swelling, Negative for tongue swelling, Negative for hives, Negative for rash, Negative for lip swelling Cardiology Exam Const Appearance: cooperative, healthy appearing, no acute distress, well developed and well groomed Nutritional Appearance: average body habitus and well nourished Orientation: alert, awake and oriented x3 Head Head: normal to inspection, normocephalic and atraumatic Ears: hearing grossly normal bilaterally and external ears normal Nose: external nose normal, nares normal, nasal mucous membranes and turbinates normal, septum normal, no nasal discharge Face and Sinus: face symmetric Mouth: oral mucosae normal, tongue normal, oropharynx normal and moist mucous membranes Teeth and gingiva: dentition normal Throat: posterior oropharynx normal, tonsils normal and uvula midline Eyes General: appearance normal, both eyes and all related structures Eyelids: eyelids normal Conjunctivae: conjunctivae normal Pupils: PERRL, normal by confrontation and accommodation normal EOM: EOM intact bilaterally Neck Neck: normal visual inspection, trachea midline and no JVD JVD: +5 Carotids: normal carotid upstroke and bounding pulses Chest Chest inspection: normal inspection of the chest, symmetric chest movement and normal respiratory effort Auscultation: Bilateral: Clear to Auscultation Cardio Palpation: normal PMI Rate: regular rate Rhythm: regular rhythm Heart sounds: S1 normal, S2 normal and normal, physiologic split S2; negative rub, gallop or murmur GI GI: normal to inspection, soft, no hepatosplenomegaly and bowel sounds present Neuro General: alert, awake, oriented x3, gait normal, moves all extremities and no focal sensory deficit Skin Skin: no rashes or lesions noted Extremities Pulses: Normal: Right Femoral Pulse, Left Femoral Pulse, Right Dorsalis Pedis Pulse, Left Dorsalis Pedis Pulse, Right Posterior Tibial Pulse, Left Posterior Tibial Pulse, Right Radial Pulse, Left Radial Pulse Lower Extremity Edema: None: Bilateral Musculoskel Musculoskeletal: No joint tenderness Psych Psychological: normal affect Assessment AND Plan 1. Postsurgical percutaneous transluminal coronary angioplasty (PTCA) status Z98.61 PTCA of mid left CFX intracoronary stent October 2010; PTCA/stent of distal LCx AND distal RCA; [facility] 06/04/11 with subsequent PCI to mid CX AND RCA; 01/28/12 PCI AND stent to 70% in-stent restenosis of prox AND mid left Cx Plan He is status post angioplasty and stenting as noted above. He continues to do well my recommendation at this time is for us to pursue an exercise myocardial perfusion stress test. If the above is normal no other changes will be made. Orders Orders: 2. Essential hypertension I10 Plan His blood pressure appears to be under good control on the current medical therapy with the PEPE inhibitor and the beta-salbador and that should be continued. 3. Pure hypercholesterolemia E78.00 Plan He does have a history of hyperlipidemia but without a recent lipid profile. He is on high intensity statin my recommendation be for him to continue the same without making any changes. Thank you for allowing me to participate in the care of your patient. 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) Coding Level of Care Code Off vis,est,level 3 Diagnoses Postsurgical percutaneous transluminal coronary angioplasty (PTCA) status Z98.61 Essential hypertension I10 Hypertension type: essential hypertension Pure hypercholesterolemia E78.00 Hyperlipidemia type: pure hypercholesterolemia Coding Level of Care Code Off vis,est,level 3 Diagnoses Postsurgical percutaneous transluminal coronary angioplasty (PTCA) status Z98.61 Essential hypertension I10 Hypertension type: essential hypertension Pure hypercholesterolemia E78.00 Hyperlipidemia type: pure hypercholesterolemia Supplemental Info Supplemental Information Labs LDL Cholesterol 90 mg/dL (0-130) 05/30/17 HDL Cholesterol 49 mg/dL (40-) 05/30/17 Triglycerides 104 mg/dL (-199) 05/30/17 VLDL Cholesterol 21 mg/dL (5-40) 05/30/17 Diagnostics Stress Test Nuclear Medicine 09/14/14 10/08/18 1553 <Electronically signed by Shawn Falcon MD> Date Shawn Falcon MD Cosigner Signature: Date (if applicable) CC: Terri Alexander Start: 09-25-2018 End: 09-25-2018 Lumbar Spine 2 or 3 Views Comments: See Note; NOTES: [facility] Imaging Services [address] [place] [id number] Lumbar Spine 2 or 3 Views MR#: [id number] Acct: [id number] Name: PEDRAZACHRIS L Rep #: [id number] : 1950 68 From: Ian Narayanan MD PCP: Terri Arguello DO Status: REG CLI Study: Lumbar Spine 2 or 3 Views Date of Exam: 09/25/18 Exam# [id number] Ordering Dr: Terri Arguello DO STUDY: X-RAY - LUMBAR SPINE REASON FOR EXAM: Male, 68 years old. Low back pain TECHNIQUE: 2 view(s) of the lumbar spine were obtained. COMPARISON: None FINDINGS: Normal lumbar lordosis. There is no substantial scoliosis. There is a normal alignment of the vertebrae from L1 to L5. There is a bilateral pars defect and grade 1-2 spondylolisthesis at L5/S1.. There is multilevel endplate spondylosis of the lumbar vertebrae. Mild disc space narrowing noted throughout the lumbar spine except at L5-S1 where there is significant disc space narrowing. Aortic stent graft noted, it is free of apparent complication RAD/Lumbar Spine 2 or 3 Views IMPRESSION: Degenerative changes of the spine, as detailed above with a bilateral pars defect and grade 1-2 spondylolisthesis at L5/S1 Electronically Signed: Leonardo Narayanan MD at 13:18 EDT , Service support , CC: Terri Arguello DO Surgical Training Specialist: Signed Terri Arguello Work Phone: Start: 09-25-2018 End: 09-26-2018 Shoulder min 2 Views Comments: See Note; NOTES: [facility] Imaging Services [address] [place] [id number] Shoulder min 2 Views MR#: [id number] Acct: [id number] Name: CHRIS PEDRAZA Rep #: [id number] : 1950 M 68 From: Hood Ladd MD PCP: Terri Arguello DO Status: REG CLI Study: Shoulder min 2 Views Date of Exam: 09/25/18 Exam# [id number] Ordering Dr: Terri Arguello DO STUDY: X-RAY - LEFT SHOULDER REASON FOR EXAM: Male, 68 years old. Patient fell. Pain TECHNIQUE: 4 view(s) of the shoulder. COMPARISON: None. FINDINGS: There are mild degenerative changes of the left acromioclavicular joint and the left glenohumeral articulation. No fracture. Electronically Signed: Hood Ladd MD at 7:26 EDT Tel , Service support , RAD/Shoulder min 2 Views CC: Terri Arguello DO Surgical Training Specialist: Signed Terri Arguello Work Phone: Start: 10-07-2017 End: 10-07-2017 Cardiology Visit Report Comments: See Note; NOTES: [facility] [address] [place] [address] OFFICE VISIT Date of Service: 10/07/17 MR#: [id number] Acct: [id number] Name: CHRIS PEDRAZA Rep #: [id number] : 1950 Provider: Shawn aFlcon MD Age/Sex: 67/M Location[place] [facility] [place] Status: Signed HPI HPI Chief Complaint: Follow-up visit. He Details: CHRIS PEDRAZA, is a 67 M who presents to the office today for he is a gentleman with a history of coronary artery disease with a posterolateral myocardial infarction angioplasty and stenting of the circumflex artery. He had repeat stenosis post angioplasty and stenting of the distal right coronary artery and angioplasty of the circumflex artery. He returns for routine follow-up visit he denies any chest pain or shortness of breath or paroxysmal nocturnal dyspnea or pedal edema he has had no neck arm or jaw discomfort suggest angina no dizziness or diaphoresis no near syncope or syncope. He has been compliant with all his medications. You do remember that he exercised to a high metabolic workload in 2014. His physical exam today demonstrates clear lung marroquin regular rate and rhythm no pedal edema. Intake Vital Signs10/07/17 Height 5 ft 9.5 in 10/07/17 Weight: 218 lb 10/07/17 Body Mass Index (BMI) 31.7 10/07/17 Blood Pressure 100/60 Intake Visit Reasons: 6 M FU Is patient in pain?: No Allergies clopidogrel [From Plavix] Allergy (Verified 10/07/17 14:45) Anaphylaxis Medications Aspirin [Aspirin EC] 81 mg PO DAILY 07/24/16 [History Confirmed 10/07/17] Nitroglycerin 0.4 mg SL PRN PRN 07/24/16 [History Confirmed 10/07/17] atorvastatin 40 mg tablet 40 mg PO DAILY #90 tab 10/07/17 [Rx Confirmed 10/07/17] lisinopril 10 mg tablet 10 mg PO DAILY #90 tab 10/07/17 [Rx Confirmed 10/07/17] metoprolol tartrate 25 mg tablet 25 mg PO BID #180 tab 10/07/17 [Rx Confirmed 10/07/17] Ejection fraction %: 55 to 59 (55% per echo 11/21/2010) PFSH Medical History History of myocardial infarction (Chronic) Atherosclerotic heart disease of [place] coronary artery without angina pectoris (Chronic) Hyperlipidemia (Chronic) MCFP use of drug (Chronic) Hypertension (Chronic) Dizziness and giddiness (Resolved) Dyspnea on exertion (Resolved) Fatigue (Resolved) Surgical History Postsurgical percutaneous transluminal coronary angioplasty (PTCA) status (Chronic) Family History Other Heart disease Hyperlipidemia Social History Smoking Status: Former smoker ROS Const Const: Negative for fatigue, weakness, body ache, fever(s), headache(s), chills, frequent falls, night sweats, daytime sleepiness, difficulty sleeping, excessive sweating, weight gain, weight loss, increased appetite, poor appetite, anorexia or other Eyes Eyes: Negative for blind spots, loss of peripheral vision, transient loss of vision, blurry vision, change in vision, double vision, floaters, tunnel vision or other ENT ENT: Negative for headache(s), dizziness, hearing loss, tinnitus, Nosebleed/epistaxis, balance problems, post nasal drip, lip swelling, tongue swelling, bleeding gums, hoarseness, neck pain, dry mouth or other Cardio Chest Pain: No Resp Respiratory: Positive for SOB with activity (with walking up a hill or strenuous activity, not severe. No chest pain.); negative for SOB at rest, SOB orthopnea\SOB lying down, Coughing up blood/hemoptysis, chest congestion, pain on inspiration, snoring, stridor, wheezing, crackles, paroxysmal nocturnal dyspnea or other GI GI: Negative nausea, vomiting, heartburn, constipation, belching, bloating, cramping, vomiting blood/hematemesis, bright, red blood in stools, black,tarry stools, loose stools, Difficulty Swallowing or other : Negative for hematuria, frequent nighttime urination/ nocturia, erectile dysfunction or abnormal vaginal bleeding Musc Musc: Negative for balance problems, muscle aches/ myalgia, muscle weakness or joint pain Skin Skin: Negative redness, non-healing lesions, rash, unusual bruising, skin ulcer, wounds, jaundice or other Neuro Neuro: Negative for weakness, headache(s), frequent falls, blurry vision, double vision, dizziness, lightheadedness, near syncope, syncope, orthostatic symptoms, confusion, memory loss, restless legs, vertigo, seizures, lack of coordination or other Macario Hematologic/Lymphatic: Negative for easy bleeding, easy bruising, enlarged lymph nodes or other Endo Endo: Negative for fatigue, excessive sweating, cold intolerance, heat intolerance, flushing, increased thirst/drinking, increased hunger, hair loss, hair growth or other Psych Psych: Negative for anxiety, depression, thoughts of harming anyone, thoughts of harming yourself, visual hallucinations, panic attacks or audible hallucinations Allergy Allergy/Immunology: Negative for lip swelling, Negative for tongue swelling, Negative for rash, Negative for throat swelling, Negative for hives Cardiology Exam Const Appearance: cooperative, healthy appearing, well developed, well groomed and no acute distress Nutritional Appearance: well nourished and average body habitus Orientation: alert, awake and oriented x3 Head Head: normal to inspection, normocephalic and atraumatic Ears: hearing grossly normal bilaterally and external ears normal Nose: external nose normal, nasal mucous membranes and turbinates normal, nares normal, septum normal, no nasal discharge Face and Sinus: face symmetric Mouth: oral mucosae normal, tongue normal, oropharynx normal and moist mucous membranes Teeth and gingiva: dentition normal Throat: posterior oropharynx normal, tonsils normal and uvula midline Eyes General: appearance normal, both eyes and all related structures Eyelids: eyelids normal Conjunctivae: conjunctivae normal Pupils: PERRL, normal by confrontation and accommodation normal EOM: EOM intact bilaterally Neck Neck: normal visual inspection, trachea midline and no JVD JVD: +5 Carotids: normal carotid upstroke and bounding pulses Chest Chest inspection: normal inspection of the chest, symmetric chest movement and normal respiratory effort Auscultation: Bilateral: Clear to Auscultation Cardio Palpation: normal PMI Rate: regular rate Rhythm: regular rhythm Heart sounds: S1 normal, S2 normal and normal, physiologic split S2; negative rub, gallop or murmur GI GI: normal to inspection, soft, no hepatosplenomegaly and bowel sounds present Neuro General: alert, awake, oriented x3, no focal sensory deficit, gait normal and moves all extremities Skin Skin: no rashes or lesions noted Extremities Pulses: Normal: Right Femoral Pulse, Left Femoral Pulse, Right Dorsalis Pedis Pulse, Left Dorsalis Pedis Pulse, Right Posterior Tibial Pulse, Left Posterior Tibial Pulse, Right Radial Pulse, Left Radial Pulse Lower Extremity Edema: None: Bilateral Musculoskel Musculoskeletal: No joint tenderness Psych Psychological: normal affect Assessment AND Plan 1. Atherosclerosis of [place] coronary artery of [place] heart without angina pectoris I25.10 Plan He continues to do remarkably well on his current medical therapy remaining free of significant disease. My recommendation at this time would be to continue medical therapy. As he remains active I would defer any stress testing until his next visit. 2. Essential hypertension I10 Plan His blood pressure appears to be under excellent control 3. Pure hypercholesterolemia E78.00; E78.0 Plan He is on high intensity statin which will be continued his most recent lipid profile demonstrated a cluster 160 LDL of 90 and HDL of 49. Thank you for allowing me to participate in his care with your kind permission I like to see him again in a year. At that time we should consider stress testing to look for any progression of disease. I have discussed the above with him and he understands and agrees to proceed. 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 transplanted heart: [place] heart Essential hypertension I10 Hypertension type: essential hypertension Pure hypercholesterolemia E78.00; E78.0 Hyperlipidemia type: pure hypercholesterolemia Coding Level of Care Code Off vis,est,level 3 Diagnoses Atherosclerosis of [place] coronary artery of [place] heart without angina pectoris I25.10 [place] vs. transplanted heart: [place] heart Essential hypertension I10 Hypertension type: essential hypertension Pure hypercholesterolemia E78.00; E78.0 Hyperlipidemia type: pure hypercholesterolemia 10/07/17 1502 <Electronically signed by Shawn Falcon MD> Date Shawn Falcon MD Cosigner Signature: Date (if applicable) CC: Terri Alexander Start: 03-28-2017 End: 05-30-2017 *Hepatic Function Panel Lisa Dunbar PA-C Work Phone: Start: 03-28-2017 End: 03-28-2017 BEAU Dunbar PA-C Work Phone: Start: 03-28-2017 End: 03-28-2017 Follow Up Appt 6 months Lisa Dunbar PA-C Work Phone: Start: 03-28-2017 End: 05-30-2017 Lipid 1996 panel - Serum or Plasma Lisa Dunbar PA-C Work Phone: Start: 03-28-2017 End: 03-28-2017 BEAU Dunbar PA-C Work Phone: Start: 03-28-2017 End: 03-28-2017 Follow Up Appt 6 months Lisa Dunbar PA-C Work Phone: Start: 01-21-2017 End: 03-28-2017 *Hepatic Function Panel Shawn Falcon MD Start: 01-21-2017 End: 03-28-2017 Lipid 1996 panel - Serum or Plasma Shawn Falcon MD Start: 01-21-2017 End: 03-28-2017 *Hepatic Function Panel Shawn Falcon MD Start: 01-21-2017 End: 03-28-2017 Lipid panel [AGGREGATE] Shawn Falcon MD Start: 09-24-2016 End: 09-24-2016 Follow Up Appt 6 months Shawn Falcon MD Start: 09-24-2016 End: 09-24-2016 MM Shawn Falcon MD Start: 09-24-2016 End: 09-24-2016 Follow Up Appt 6 months Shawn Falcon MD Start: 09-24-2016 End: 09-24-2016 [facility] Shawn Falcon MD Start: 07-27-2016 End: 07-27-2016 Discharge Instruction Comments: See Note; NOTES: [facility] Medical Records Department [address] [place] [address] Instructions for Home/Discharge Instructions 07/27/16 0914 MR#: [id number] Acct: [id number] Name: CHRIS PEDRAZA Liliana Rep #: [id number] : 1950 66 From: Yaakov Ruiz MD PCP: Terri Arguello DO Status: REG [facility] [place] Discharge Diet: No Restrictions - ENCOURAGE FLUIDS Discharge Activity: Return to Normal Activity, May Shower, - - NO STRENUOUS ACTIVITY Additional Activity Instructions:: IF ANY BLOOD SEEN IN URINE, PUSH FLUIDS AND DECREASE ACTIVITIES Call your doctor if you observe: Fever of 101 or Higher, Inability to urinate Allergies/Adverse Reactions: Allergies clopidogrel [From Plavix] Allergy (Verified 07/24/16 08:04) Anaphylaxis Medications to take at Discharge Aspirin [Aspirin EC] 81 mg PO DAILY 07/24/16 Atorvastatin Calcium [Lipitor] 40 mg PO DAILY 07/24/16 Metoprolol(XL)Succ [Toprol Xl (Beta Salbador)] 25 mg PO BID 07/24/16 Nitroglycerin 0.4 mg SL PRN PRN 07/24/16 Prasugrel Hydrochloride [Effient] 10 mg PO DAILY 07/24/16 Lisinopril [Prinivil] 10 mg PO DAILY 07/26/16 Primary Care Physician: Terri Arguello DO [Primary Care Provider] - Please Follow Up With: Yaakov Ruiz - [phone] When: CALL SOON FOR FOLLOW UP APPT FOR 2-3 WKS 07/27/16 0917 <Electronically signed by Yaakov Ruiz MD> Date Yaakov Ruiz MD CC: Terri Alexander Start: 07-27-2016 End: 07-27-2016 Operative Report Comments: See Note; NOTES: [facility] Medical Records Department [address] [place] [id number] Operative Report MR#: [id number] Acct: [id number] Name: CHRIS PEDRAZA Rep #: [id number] : 1950 66 From: Yaakov Ruiz MD PCP: Terri Arguello DO Status: [facility] DATE OF SERVICE: 07/26/2016 DATE OF SERVICE: 07/26/2016 PREOPERATIVE DIAGNOSES: 1. Recurrent bladder tumor. 2. Vesical neck contracture. PROCEDURES: Bladder biopsies and incision of vesical neck contracture. INDICATIONS: This is a 66-year-old male who during recent cystoscopy found to have a vesical neck contracture, but had some bladder tumor around the right ureteral orifice, is brought at this time for biopsies, fulguration. DESCRIPTION OF PROCEDURE: The patient was taken to the operating room, was placed under general anesthesia per LMA by Anatoly Bishop and Dr. Martinez. He had scuds in place, was preloaded with antibiotics. He was placed in lithotomy position, prepped and draped in sterile technique. Cystoscopic exam showed a normal urethra, mild bilobar hyperplasia and vesical neck contracture. Exam of the bladder showed numerous frond-like projections in the right ureteral orifice and then a markedly inflamed area on the lateral right wall. Rest of the bladder itself was unremarkable. At this point, after examining the bladder with 30 and 70-degree lens, bladder biopsies were performed of the right bladder wall. This was sent off as specimen #1 and then biopsies taken around the right ureteral orifice from the frond-like projections, specimen #2. At this point, then switched over using a Glaser knife, where bladder neck incision was performed and a large incision was performed at 6 o'clock, where it was wide opened and then 2 smaller wounds were made, at about 2 o'clock and 10 o'clock, the vesical neck contracture was also incised. At this point, holding the Glaser knife sideways, some tissue on the right lobe was cauterized mostly to decrease the amount of tissue contributing to obstruction. Attention was then turned back to the bladder biopsies. Switched over to a Bugbee and which these were then vigorously fulgurated. The bladder was then distended and drained several times, unable to induce any bleeding and an 18-Mosotho catheter was placed to drainage. The patient was then taken to recovery in stable condition. Yaakov Ruiz MD T: NTS JOB: [id number] 07/27/16 0851 <Electronically signed by Yaakov Ruiz MD> Date Yaakov Ruiz MD Cosigner Signature (If Indicated): Date CC: Terri Arguello DO; Yaakov Ruiz MD Date Dictated: 07/26/16 1147 Date Transcribed: 07/26/161146 Surgical Training Specialist: Signed Terri Arguello Start: 07-26-2016 End: 07-26-2016 12 lead ECG Comments: See Note; NOTES: [facility] Cardiovascular Services [address] [place] [address] EKG - SDC 07/24/16837 MR#: [id number] Acct: [id number] Name: CHRIS PEDRAZA Rep #: [id number] : 1950 66 From: Lopez Mckeon MD Attending Dr: Yaakov Ruiz MD Status: REG [facility] [place] Ordering Dr: Emmett Martinez MD Date: 07/24/16 Location: [facility] Sex: M C Admitted: Test Reason : Blood Pressure : / mmHG Vent. Rate : 045 BPM Atrial Rate : 045 BPM P-R Int : 174 ms QRS Dur : 114 ms QT Int : 468 ms P-R-T Axes : 058 018 070 degrees QTc Int : 404 ms Marked sinus bradycardia Abnormal ECG Confirmed by LOPEZ MCKEON ([id number]), video news editor YOSSI MEYER ([id number]) on 07/26/2016 3:10:11 PM Referred By: BAKARI CLARKE Confirmed By:LOPEZ MCKEON 07/26/16 1510 Date Lopez Mckeon MD CC: Lopez Mckeon MD; Terri Arguello DO Date Dictated: 07/24/16837 Date Transcribed: 07/24/16837 Surgical Training Specialist: Signed Terri Arguello Work Phone: Start: 03-19-2016 End: 03-18-2017 *Hepatic Function Panel Shawn Falcon MD Start: 03-19-2016 End: 03-19-2016 Follow Up Appt 6 months Shawn Falcon MD Start: 03-19-2016 End: 07-24-2016 Lipid 1996 panel - Serum or Plasma Shawn Falcon MD Start: 03-19-2016 End: 03-19-2016 MMM Shawn Falcon MD Start: 03-19-2016 End: 03-18-2017 *Hepatic Function Panel Shawn Falcon MD Start: 03-19-2016 End: 03-19-2016 Follow Up Appt 6 months Shawn Falcon MD Start: 03-19-2016 End: 07-24-2016 Lipid panel [AGGREGATE] Shawn Falcon MD Start: 03-19-2016 End: 03-19-2016 MMM Shawn Falcon MD Start: 09-15-2015 End: 09-15-2015 Dietary management education, guidance, and counseling Susan Pizano Start: 09-15-2015 End: 09-15-2015 BEAU Dunbar PA-C Work Phone: Start: 09-15-2015 End: 09-15-2015 Follow Up Appt 6 months Lisa Dunbar PA-C Work Phone: Start: 09-15-2015 End: 09-15-2015 BEAU Dunbar PA-C Work Phone: Start: 09-15-2015 End: 09-15-2015 Follow Up Appt 6 months Lisa Dunbar PA-C Work Phone: Start: 03-17-2015 End: 09-07-2015 *Hepatic Function Panel Shawn Falcon MD Start: 03-17-2015 End: 03-18-2015 Documentation of current medications Shawn Falcon MD Start: 03-17-2015 End: 03-17-2015 Follow Up Appt 6 months Shawn Falcon MD Start: 03-17-2015 End: 09-07-2015 Lipid 1996 panel - Serum or Plasma Shawn Falcon MD Start: 03-17-2015 End: 03-17-2015 MMM Shawn Falcon MD Start: 03-17-2015 End: 03-18-2015 Documentation of current medications Shawn Falcon MD Start: 03-17-2015 End: 03-17-2015 Follow Up Appt 6 months Shawn Falcon MD Start: 03-17-2015 End: 03-17-2015 MMM Shawn Falcon MD Start: 03-16-2015 End: 09-07-2015 *Hepatic Function Panel Shawn Falcon MD Start: 03-16-2015 End: 09-07-2015 Lipid panel [AGGREGATE] Shawn Falcon MD Start: 03-16-2015 End: 03-17-2015 *Hepatic Function Panel Shawn Falcon MD Start: 03-16-2015 End: 03-17-2015 Lipid panel [AGGREGATE] Shawn Falcon MD Start: 10-18-2014 End: 10-18-2014 [facility]IC[facility] Lisa Dunbar PA-C Work Phone: Start: 10-18-2014 End: 10-19-2014 Documentation of current medications Lisa Dunbar PA-C Work Phone: Start: 10-18-2014 End: 10-18-2014 Follow Up Appt 6 months Lisa Dunbar PA-C Work Phone: Start: 10-18-2014 End: 10-18-2014 CH[facility] HOSPITAL MEDICINE Lisa Dunbar PA-C Work Phone: Start: 10-18-2014 End: 10-19-2014 Documentation of current medications Lisa Dunbar PA-C Work Phone: Start: 10-18-2014 End: 10-18-2014 Follow Up Appt 6 months Lisa Dunbar PA-C Work Phone: Start: 09-14-2014 End: 09-16-2014 Nuclear Stress Test - Treadmil Comments: See Note; NOTES: [facility] Imaging Services [address] [place] [address] Nuclear Medicine Report MR#: [id number] Acct: [id number] Name: CHRIS PEDRAZA Rep #: [id number] : 1950 M 64 From: Shawn Falcon MD PCP: Terri Arguello DO Status: [facility] Study: Nuclear Stress Test - Treadmpr Date of Exam: 09/14/14 Exam# [id number] Ordering Dr: Lisa Arana EXERCISE MYOCARDIAL PERFUSION STRESS TEST REASON FOR EVALUATION: This is a 64-year-old man with a history of coronary artery disease, shortness of breath, status post angioplasty and stenting in 2010. MEDICATIONS: Aspirin, Lipitor, metoprolol, Effient. BASELINE INFORMATION: Resting EKG demonstrated sinus bradycardia with a rate of 57 beats per minute. The resting blood pressure was 138/78. STRESS TEST: The patient exercised according to the regular Joshua protocol for a total duration of 9 minutes. The maximum heart rate attained was 137 beats per minute , which was 86% of maximum predicted heart rate. The maximum workload attained was 10.1 METS. At rest, there were no ST or T-wave changes noted to suggest ischemia. At peak exercise, there was approximately 1.[address] depression noted in lead II and 1.[address] depression noted in lead III and aVF suggestive of ischemia. In the immediate recovery period these ST changes became more upright. The resting blood pressure was 138/78 with a peak blood pressure of 156/80. Rate pressure product was 20,700. No clinical angina was noted. The test was terminated due to leg fatigue. MYOCARDIAL PERFUSION PROTOCOL: 13.2 mCi of Sestamibi was injected at rest. The patient exercised according to the regular Joshua protocol for a total duration of 9 minutes attaining 86% of maximum predicted heart rate. The maximum workload attained was 10.1 METS. At peak exercise, 40.6 mCi of Sestamibi was injected. Stress images were obtained. Stress and rest images were reconstructed and compared in the short axis, vertical long, and horizontal long axes. Gated images were also obtained. PERFUSION SPECT ANALYSIS: Review of the images demonstrate normal uptake of tracer noted in the septum, anterior wall, and lateral wall. The basal to mid inferior wall has markedly reduced perfusion and extends somewhat into the inferolateral wall. No areas of reversibility are noted to suggest ischemia. A previous basal to mid inferior infarct as well as an inferolateral infarct is noted. GATED SPECT ANALYSIS: The gated ejection fraction is noted to be 49%. Mild basal inferior hypokinesis is present. CONCLUSION 1. Exercise myocardial perfusion stress test with EKG changes suggestive, but not diagnostic of ischemia at a high workload. 2. No clinical angina noted. 3. Excellent functional work capacity. 4. Nuclear images demonstrate evidence of inferolateral, basal inferior, and inferolateral infarct. CC: Terri Arguello DO; Lisa Arana Surgical Training Specialist: ZAMORA Kylah Arguello Start: 09-05-2014 End: 09-13-2014 *CBC with Differential Lisa Dunbar PA-C Work Phone: Start: 09-05-2014 End: 09-13-2014 *CMP Complete Metabolic Panel Lisa Dunbar PA-C Work Phone: Start: 09-05-2014 End: 09-05-2014 CHIEF OF HOSPITAL MEDICINE Lisa Dunbar PA-C Work Phone: Start: 09-05-2014 End: 09-06-2014 Documentation of current medications Lisa Dunbar PA-C Work Phone: Start: 09-05-2014 End: 09-05-2014 Follow Up Appt 6 months Lisa Dnubar PA-C Work Phone: Start: 09-05-2014 End: 09-13-2014 Lipid 1996 panel - Serum or Plasma Lisa Dunbar PA-C Work Phone: Start: 09-05-2014 End: 09-16-2014 Nuclear stress test -exercise Lisa Dunbar PA-C Work Phone: Start: 09-05-2014 End: 09-13-2014 *CBC with Differential Lisa Dunbar PA-C Work Phone: Start: 09-05-2014 End: 09-13-2014 *CMP Complete Metabolic Panel Lisa Dunbar PA-C Work Phone: Start: 09-05-2014 End: 09-05-2014 CHIEF OF HOSPITAL MEDICINE Lisa Dunbar PA-C Work Phone: Start: 09-05-2014 End: 09-06-2014 Documentation of current medications Lisa Dunbar PA-C Work Phone: Start: 09-05-2014 End: 09-05-2014 Follow Up Appt 6 months Lisa Dunbar PA-C Work Phone: Start: 09-05-2014 End: 09-13-2014 Lipid panel [AGGREGATE] Lisa Dunbar PA-C Work Phone: Start: 09-05-2014 End: 09-16-2014 Nuclear stress test -exercise Lisa Dunbar PA-C Work Phone: Start: 05-14-2014 End: 09-05-2014 *Hepatic Function Panel Shawn Falcon MD Start: 05-14-2014 End: 09-05-2014 Lipid 1996 panel - Serum or Plasma Shawn Falcon MD Start: 05-14-2014 End: 09-05-2014 *Hepatic Function Panel Shawn Falcon MD Start: 05-14-2014 End: 09-05-2014 Lipid panel [AGGREGATE] Shawn Falcon MD Start: 03-04-2014 End: 03-04-2014 Ecg routine ecg w/least 12 lds w/i&r Shawn Falcon MD Start: 03-04-2014 End: 03-04-2014 Follow Up Appt 6 months Shawn Falcon MD Start: 03-04-2014 End: 03-04-2014 MMM Shawn Falcon MD Start: 03-04-2014 End: 03-04-2014 Electrocardiogram, complete Shawn Falcon MD Start: 03-04-2014 End: 03-04-2014 Follow Up Appt 6 months Shawn Falcon MD Start: 03-04-2014 End: 03-04-2014 MELISSA Falcon MD Start: 09-09-2013 End: 09-09-2013 BEAU Dunbar PA-C Work Phone: Start: 09-09-2013 End: 09-09-2013 Follow Up Appt 6 months Lisa Dunbar PA-C Work Phone: Start: 09-09-2013 End: 09-09-2013 BEAU Dunbar PA-C Work Phone: Start: 09-09-2013 End: 09-09-2013 Follow Up Appt 6 months Lisa Dunbar PA-C Work Phone: Start: 08-14-2013 End: 12-09-2013 *Hepatic Function Panel Shawn Falcon MD Start: 08-14-2013 End: 12-09-2013 Lipid 1996 panel - Serum or Plasma Shawn Falcon MD Start: 08-14-2013 End: 12-09-2013 *Hepatic Function Panel Shawn Falcon MD Start: 08-14-2013 End: 12-09-2013 Lipid panel [AGGREGATE] Shawn Falcon MD Start: 03-09-2013 End: 03-09-2013 Follow Up Appt 6 months Shawn Falcon MD Start: 03-09-2013 End: 03-09-2013 MELISSA Falcon MD Start: 03-09-2013 End: 03-09-2013 Follow Up Appt 6 months Shawn Falcon MD Start: 03-09-2013 End: 03-09-2013 MELISSA Falcon MD Start: 03-07-2013 End: 03-07-2013 *Hepatic Function Panel Scott Rey MD Start: 03-07-2013 End: 03-07-2013 Lipid 1996 panel - Serum or Plasma Scott Rey MD Start: 03-07-2013 End: 03-07-2013 *Hepatic Function Panel Scott Rey MD Start: 03-07-2013 End: 03-07-2013 Lipid panel [AGGREGATE] Scott Rey MD Start: 09-04-2012 End: 08-27-2013 Follow Up Appt 6 months Scott Rey MD Start: 09-04-2012 End: 08-27-2013 Follow Up Appt 6 months Scott Rey MD Start: 07-28-2012 End: 07-28-2012 Follow Up Appt 6 weeks Scott Rey MD Start: 07-28-2012 End: 08-07-2012 Nuclear stress test -exercise Scott Rey MD Start: 07-28-2012 End: 07-28-2012 Follow Up Appt 6 weeks Scott Rey MD Start: 07-28-2012 End: 08-07-2012 Nuclear stress test -exercise Scott Rey MD Start: 03-26-2012 End: 03-26-2012 Follow Up Appt 3 months Scott Rey MD Start: 03-26-2012 End: 03-26-2012 Follow Up Appt 3 months Scott Rey MD Start: 01-24-2012 End: 01-24-2012 *BMP Scott Rey MD Start: 01-24-2012 End: 01-24-2012 *Hepatic Function Panel Scott Rey MD Start: 01-24-2012 End: 01-24-2012 aPTT in Platelet poor plasma by Coagulation assay Scott Rey MD Start: 01-24-2012 End: 01-24-2012 CBC W Auto Differential panel - Blood Scott Rey MD Start: 01-24-2012 End: 01-24-2012 Chest x-ray Scott Rey MD Start: 01-24-2012 End: 01-24-2012 Ecg routine ecg w/least 12 lds w/i&r Scott Rey MD Start: 01-24-2012 End: 01-24-2012 Follow Up Appt 2 months Scott Rey MD Start: 01-24-2012 End: 01-24-2012 INR in Platelet poor plasma by Coagulation assay Scott Rey MD Start: 01-24-2012 End: 01-24-2012 Left Heart Cath Scott Rey MD Start: 01-24-2012 End: 01-24-2012 Lipid 1996 panel - Serum or Plasma Scott Rey MD Start: 01-24-2012 End: 01-24-2012 Magnesium [Mass/volume] in Serum or Plasma Scott Rey MD Start: 01-24-2012 End: 01-24-2012 *BMP Scott Rey MD Start: 01-24-2012 End: 01-24-2012 *Hepatic Function Panel Scott Rey MD Start: 01-24-2012 End: 01-24-2012 aPTT Scott Rey MD Start: 01-24-2012 End: 01-24-2012 Chest x-ray Scott Rey MD Start: 01-24-2012 End: 01-24-2012 Coagulation factor induced.INR assay in platelet poor plasma Scott Rey MD Start: 01-24-2012 End: 01-24-2012 Electrocardiogram, complete Scott Rey MD Start: 01-24-2012 End: 01-24-2012 Follow Up Appt 2 months Scott Rey MD Start: 01-24-2012 End: 01-24-2012 Left Heart Cath Scott Rey MD Start: 01-24-2012 End: 01-24-2012 Lipid panel [AGGREGATE] Scott Rey MD Start: 01-24-2012 End: 01-24-2012 Magnesium Scott Rey MD Start: 01-13-2012 End: 01-13-2012 Follow Up Appt 6 months Scott Rey MD Start: 01-13-2012 End: 01-24-2012 Nuclear stress test -exercise Scott Rey MD Start: 01-13-2012 End: 01-13-2012 Follow Up Appt 6 months Scott Rey MD Start: 01-13-2012 End: 01-24-2012 Nuclear stress test -exercise Scott Rey MD Start: 10-11-2011 End: 11-03-2011 *Hepatic Function Panel Scott Rey MD Start: 10-11-2011 End: 10-11-2011 Follow Up Appt 3 months Scott Rey MD Start: 10-11-2011 End: 11-03-2011 Lipid 1996 panel - Serum or Plasma Scott Rey MD Start: 10-11-2011 End: 11-03-2011 *Hepatic Function Panel Scott Rey MD Start: 10-11-2011 End: 10-11-2011 Follow Up Appt 3 months Scott Rey MD Start: 10-11-2011 End: 11-03-2011 Lipid panel [AGGREGATE] Scott Rey MD Start: 07-19-2011 End: 07-19-2011 Follow Up Appt Other Scott Rey MD Start: 07-19-2011 End: 07-19-2011 Follow Up Appt Other Scott Rey MD Start: 05-30-2011 End: 07-11-2011 *BMP Scott Rey MD Start: 05-30-2011 End: 07-11-2011 *CBC with Differential Scott Rey MD Start: 05-30-2011 End: 07-11-2011 aPTT in Platelet poor plasma by Coagulation assay Scott Rey MD Start: 05-30-2011 End: 05-30-2011 Follow Up Appt 6 weeks Scott Rey MD Start: 05-30-2011 End: 07-11-2011 INR in Platelet poor plasma by Coagulation assay Scott Rey MD Start: 05-30-2011 End: 07-11-2011 Left Heart Cath Scott Rey MD Start: 05-30-2011 End: 07-11-2011 Magnesium [Mass/volume] in Serum or Plasma Scott Rey MD Start: 05-30-2011 End: 07-11-2011 *BMP Scott Rey MD Start: 05-30-2011 End: 07-11-2011 *CBC with Differential Scott Rey MD Start: 05-30-2011 End: 07-11-2011 aPTT Scott Rey MD Start: 05-30-2011 End: 07-11-2011 Coagulation factor induced.INR assay in platelet poor plasma Scott Rey MD Start: 05-30-2011 End: 05-30-2011 Follow Up Appt 6 weeks Scott Rey MD Start: 05-30-2011 End: 07-11-2011 Left Heart Cath Scott Rey MD Start: 05-30-2011 End: 07-11-2011 Magnesium Scott Rey MD Plan of Treatment Date Care Activity Detail Author Start: 05-01-2020 Procedure Education Eprescribed prescriptions ([id number]) [facility] Work Phone: Start: 05-01-2020 [place] influenza 2019 Novel Coronavirus (COVID-19), JUVE (72589) [facility] Work Phone: Start: 03-14-2019 Influenza vaccination Flu vaccine (#1) [facility] Work Phone: Start: 11-28-2017 End: 06-02-2017 *Hepatic Function Panel *Hepatic Function Panel [facility] Work Phone: Start: 11-28-2017 End: 06-02-2017 Lipid panel [AGGREGATE] *Lipid Profile CC PCP [facility] Work Phone: Start: 10-07-2017 End: 10-07-2017 Appointment Appointment [facility] Work Phone: Start: 03-28-2017 End: 05-30-2017 *Hepatic Function Panel *Hepatic Function Panel [facility] Work Phone: Start: 03-28-2017 End: 03-28-2017 CHIEF OF HOSPITAL MEDICINE [facility] OF [facility]OSPITAL MEDICINE [facility] Work Phone: Start: 03-28-2017 End: 03-28-2017 Follow Up Appt 6 months Follow Up Appt 6 months [facility] Work Phone: Start: 03-28-2017 End: 05-30-2017 Lipid panel [AGGREGATE] *Lipid Profile CC PCP [facility] Work Phone: Start: 03-28-2017 End: 03-28-2017 *Hepatic Function Panel *Hepatic Function Panel [facility] Work Phone: Start: 03-28-2017 End: 03-28-2017 CHIEF OF HOSPITAL MEDICINE [facility] Work Phone: Start: 03-28-2017 End: 03-28-2017 Follow Up Appt 6 months Follow Up Appt 6 months [facility] Work Phone: Start: 03-28-2017 End: 03-28-2017 Lipid panel [AGGREGATE] *Lipid Profile CC PCP [facility] Work Phone: Start: 2017 Pneumococcal 65+ years Vaccine (1 of 1 - PPSV23) Pneumococcal 65+ years Vaccine (1 of 1 - PPSV23) [facility] Work Phone: Start: 01-21-2017 End: 03-28-2017 *Hepatic Function Panel *Hepatic Function Panel [facility] Work Phone: Start: 01-21-2017 End: 03-28-2017 Lipid panel [AGGREGATE] *Lipid Profile CC PCP [facility] Work Phone: Start: 01-21-2017 End: 03-28-2017 *Hepatic Function Panel *Hepatic Function Panel [facility] Work Phone: Start: 01-21-2017 End: 03-28-2017 Lipid panel [AGGREGATE] *Lipid Profile CC PCP [facility] Work Phone: Start: 09-24-2016 End: 09-24-2016 Follow Up Appt 6 months Follow Up Appt 6 months [facility] Work Phone: Start: 09-24-2016 End: 09-24-2016 MMM MMM [facility] Work Phone: Start: 09-24-2016 End: 09-24-2016 Follow Up Appt 6 months Follow Up Appt 6 months [facility] Work Phone: Start: 09-24-2016 End: 09-24-2016 MMM MM [facility] Work Phone: Start: 03-19-2016 End: 03-18-2017 *Hepatic Function Panel *Hepatic Function Panel [facility] Work Phone: Start: 03-19-2016 End: 03-19-2016 Follow Up Appt 6 months Follow Up Appt 6 months [facility] Work Phone: Start: 03-19-2016 End: 07-24-2016 Lipid panel [AGGREGATE] *Lipid Profile CC PCP [facility] Work Phone: Start: 03-19-2016 End: 03-19-2016 MMM MMM [facility] Work Phone: Start: 03-19-2016 End: 03-18-2017 *Hepatic Function Panel *Hepatic Function Panel [facility] Work Phone: Start: 03-19-2016 End: 03-19-2016 Follow Up Appt 6 months Follow Up Appt 6 months [facility] Work Phone: Start: 03-19-2016 End: 07-24-2016 Lipid panel [AGGREGATE] *Lipid Profile CC PCP [facility] Work Phone: Start: 03-19-2016 End: 03-19-2016 MMM MMM [facility] Work Phone: Start: 09-15-2015 End: 09-15-2015 CHIEF OF HOSPITAL MEDICINE [facility] Work Phone: Start: 09-15-2015 End: 09-15-2015 Follow Up Appt 6 months Follow Up Appt 6 months [facility] Work Phone: Start: 09-15-2015 End: 09-15-2015 CHIEF OF HOSPITAL MEDICINE [facility] Work Phone: Start: 09-15-2015 End: 09-15-2015 Follow Up Appt 6 months Follow Up Appt 6 months [facility] Work Phone: Start: 03-17-2015 End: 09-07-2015 *Hepatic Function Panel *Hepatic Function Panel [facility] Work Phone: Start: 03-17-2015 End: 03-17-2015 Follow Up Appt 6 months Follow Up Appt 6 months [facility] Work Phone: Start: 03-17-2015 End: 09-07-2015 Lipid panel [AGGREGATE] *Lipid Profile CC PCP [facility] Work Phone: Start: 03-17-2015 End: 03-17-2015 MMM MMM [facility] Work Phone: Start: 03-17-2015 End: 03-17-2015 Follow Up Appt 6 months Follow Up Appt 6 months [facility] Work Phone: Start: 03-17-2015 End: 03-17-2015 MMM MMM [facility] Work Phone: Start: 03-16-2015 End: 09-07-2015 *Hepatic Function Panel *Hepatic Function Panel [facility] Work Phone: Start: 03-16-2015 End: 09-07-2015 Lipid panel [AGGREGATE] *Lipid Profile CC PCP [facility] Work Phone: Start: 03-16-2015 End: 03-17-2015 *Hepatic Function Panel *Hepatic Function Panel [facility] Work Phone: Start: 03-16-2015 End: 03-17-2015 Lipid panel [AGGREGATE] *Lipid Profile CC PCP [facility] Work Phone: Start: 10-18-2014 End: 10-18-2014 CHIEF OF HOSPITAL MEDICINE [facility] MED[facility] Work Phone: Start: 10-18-2014 End: 10-18-2014 Follow Up Appt 6 months Follow Up Appt 6 months [facility] Work Phone: Start: 10-18-2014 End: 10-18-2014 CHIEF OF HOSPITAL MEDICINE [facility] Work Phone: Start: 10-18-2014 End: 10-18-2014 Follow Up Appt 6 months Follow Up Appt 6 months [facility] Work Phone: Start: 09-05-2014 End: 09-13-2014 *CBC with Differential *CBC with Differential [facility] Work Phone: Start: 09-05-2014 End: 09-13-2014 *CMP Complete Metabolic Panel *CMP Complete Metabolic Panel [facility] Work Phone: Start: 09-05-2014 End: 09-05-2014 CHIEF OF HOSPITAL MEDICINE [facility] MEDIC[facility] Work Phone: Start: 09-05-2014 End: 09-05-2014 Follow Up Appt 6 months Follow Up Appt 6 months [facility] Work Phone: Start: 09-05-2014 End: 09-13-2014 Lipid panel [AGGREGATE] *Lipid Profile CC PCP [facility] Work Phone: Start: 09-05-2014 End: 09-05-2014 Nuclear stress test -exercise Nuclear stress test -exercise [facility] Work Phone: Start: 09-05-2014 End: 09-13-2014 *CBC with Differential *CBC with Differential [facility] Work Phone: Start: 09-05-2014 End: 09-13-2014 *CMP Complete Metabolic Panel *CMP Complete Metabolic Panel [facility] Work Phone: Start: 09-05-2014 End: 09-05-2014 CHIEF OF HOSPITAL MEDICINE [facility] Work Phone: Start: 09-05-2014 End: 09-05-2014 Follow Up Appt 6 months Follow Up Appt 6 months [facility] Work Phone: Start: 09-05-2014 End: 09-13-2014 Lipid panel [AGGREGATE] *Lipid Profile CC PCP [facility] Work Phone: Start: 09-05-2014 End: 09-05-2014 Nuclear stress test -exercise Nuclear stress test -exercise [facility] Work Phone: Start: 05-14-2014 End: 09-05-2014 *Hepatic Function Panel *Hepatic Function Panel [facility] Work Phone: Start: 05-14-2014 End: 09-05-2014 Lipid panel [AGGREGATE] *Lipid Profile CC PCP [facility] Work Phone: Start: 05-14-2014 End: 09-05-2014 *Hepatic Function Panel *Hepatic Function Panel [facility] Work Phone: Start: 05-14-2014 End: 09-05-2014 Lipid panel [AGGREGATE] *Lipid Profile CC PCP [facility] Work Phone: Start: 05-12-2014 Provider Instructions for Treatment *Otitis Externa Education [facility] Work Phone: Start: 03-04-2014 End: 03-04-2014 Ecg routine ecg w/least 12 lds w/i&r EKG (In office) [facility] Work Phone: Start: 03-04-2014 End: 03-04-2014 Follow Up Appt 6 months Follow Up Appt 6 months [facility] Work Phone: Start: 03-04-2014 End: 03-04-2014 MMM MMM [facility] Work Phone: Start: 03-04-2014 End: 03-04-2014 Electrocardiogram, complete EKG (In office) [facility] Work Phone: Start: 03-04-2014 End: 03-04-2014 Follow Up Appt 6 months Follow Up Appt 6 months [facility] Work Phone: Start: 03-04-2014 End: 03-04-2014 MMM MMM [facility] Work Phone: Start: 09-09-2013 End: 09-09-2013 CHIEF OF HOSPITAL MEDICINE [facility]ITAL MEDIC[facility] Work Phone: Start: 09-09-2013 End: 09-09-2013 Follow Up Appt 6 months Follow Up Appt 6 months [facility] Work Phone: Start: 09-09-2013 End: 09-09-2013 CHIEF OF HOSPITAL MEDICINE [facility] Work Phone: Start: 09-09-2013 End: 09-09-2013 Follow Up Appt 6 months Follow Up Appt 6 months [facility] Work Phone: Start: 08-14-2013 End: 12-09-2013 *Hepatic Function Panel *Hepatic Function Panel [facility] Work Phone: Start: 08-14-2013 End: 12-09-2013 Lipid panel [AGGREGATE] *Lipid Profile CC PCP [facility] Work Phone: Start: 08-14-2013 End: 12-09-2013 *Hepatic Function Panel *Hepatic Function Panel [facility] Work Phone: Start: 08-14-2013 End: 12-09-2013 Lipid panel [AGGREGATE] *Lipid Profile CC PCP [facility] Work Phone: Start: 03-17-2013 End: 03-07-2013 *Hepatic Function Panel *Hepatic Function Panel [facility] Work Phone: Start: 03-17-2013 End: 03-07-2013 Lipid panel [AGGREGATE] *Lipid Profile [facility] Work Phone: Start: 03-17-2013 End: 03-07-2013 *Hepatic Function Panel *Hepatic Function Panel [facility] Work Phone: Start: 03-17-2013 End: 03-07-2013 Lipid panel [AGGREGATE] *Lipid Profile [facility] Work Phone: Start: 03-09-2013 End: 03-09-2013 Follow Up Appt 6 months Follow Up Appt 6 months [facility] Work Phone: Start: 03-09-2013 End: 03-09-2013 MMM MMM [facility] Work Phone: Start: 03-09-2013 End: 03-09-2013 Follow Up Appt 6 months Follow Up Appt 6 months [facility] Work Phone: Start: 03-09-2013 End: 03-09-2013 MMM MMM [facility] Work Phone: Start: 09-04-2012 End: 08-27-2013 Follow Up Appt 6 months Follow Up Appt 6 months [facility] Work Phone: Start: 09-04-2012 End: 08-27-2013 Follow Up Appt 6 months Follow Up Appt 6 months [facility] Work Phone: Start: 07-28-2012 End: 07-28-2012 Follow Up Appt 6 weeks Follow Up Appt 6 weeks [facility] Work Phone: Start: 07-28-2012 End: 07-28-2012 Nuclear stress test -exercise Nuclear stress test -exercise [facility] Work Phone: Start: 07-28-2012 End: 07-28-2012 Follow Up Appt 6 weeks Follow Up Appt 6 weeks [facility] Work Phone: Start: 07-28-2012 End: 07-28-2012 Nuclear stress test -exercise Nuclear stress test -exercise [facility] Work Phone: Start: 05-07-2012 End: 01-13-2012 *Hepatic Function Panel *Hepatic Function Panel [facility] Work Phone: Start: 05-07-2012 End: 01-24-2012 Lipid panel [AGGREGATE] *Lipid Profile [facility] Work Phone: Start: 05-07-2012 End: 01-13-2012 *Hepatic Function Panel *Hepatic Function Panel [facility] Work Phone: Start: 05-07-2012 End: 01-24-2012 Lipid panel [AGGREGATE] *Lipid Profile [facility] Work Phone: Start: 03-26-2012 End: 03-26-2012 Follow Up Appt 3 months Follow Up Appt 3 months [facility] Work Phone: Start: 03-26-2012 End: 03-26-2012 Follow Up Appt 3 months Follow Up Appt 3 months [facility] Work Phone: Start: 01-24-2012 End: 01-24-2012 *BMP *BMP [facility] Work Phone: Start: 01-24-2012 End: 01-24-2012 aPTT *PTT-Partial Thromboplastin Time [facility] Work Phone: Start: 01-24-2012 End: 01-24-2012 CBC W Auto Differential panel - Blood *CBC without Diff [facility] Work Phone: Start: 01-24-2012 End: 01-24-2012 Chest x-ray X-Ray, Chest, PA & Lateral [facility] Work Phone: Start: 01-24-2012 End: 01-24-2012 Ecg routine ecg w/least 12 lds w/i&r EKG (In office) [facility] Work Phone: Start: 01-24-2012 End: 01-24-2012 Follow Up Appt 2 months Follow Up Appt 2 months [facility] Work Phone: Start: 01-24-2012 End: 01-24-2012 INR Coag RelTime (PPP) *PT/INR [facility] Work Phone: Start: 01-24-2012 End: 01-24-2012 Left Heart Cath Left Heart Cath [facility] Work Phone: Start: 01-24-2012 End: 01-24-2012 Magnesium *Magnesium [facility] Work Phone: Start: 01-24-2012 End: 01-24-2012 *BMP *BMP [facility] Work Phone: Start: 01-24-2012 End: 01-24-2012 aPTT *PTT-Partial Thromboplastin Time [facility] Work Phone: Start: 01-24-2012 End: 01-24-2012 CBC W Auto Differential panel - Blood *CBC without Diff [facility] Work Phone: Start: 01-24-2012 End: 01-24-2012 Chest x-ray X-Ray, Chest, PA & Lateral [facility] Work Phone: Start: 01-24-2012 End: 01-24-2012 Coagulation factor induced.INR assay in platelet poor plasma *PT/INR [facility] Work Phone: Start: 01-24-2012 End: 01-24-2012 Electrocardiogram, complete EKG (In office) [facility] Work Phone: Start: 01-24-2012 End: 01-24-2012 Follow Up Appt 2 months Follow Up Appt 2 months [facility] Work Phone: Start: 01-24-2012 End: 01-24-2012 Left Heart Cath Left Heart Cath [facility] Work Phone: Start: 01-24-2012 End: 01-24-2012 Magnesium *Magnesium [facility] Work Phone: Start: 01-13-2012 End: 01-13-2012 Follow Up Appt 6 months Follow Up Appt 6 months [facility] Work Phone: Start: 01-13-2012 End: 01-14-2012 Nuclear stress test -exercise Nuclear stress test -exercise [facility] Work Phone: Start: 01-13-2012 End: 01-13-2012 Follow Up Appt 6 months Follow Up Appt 6 months [facility] Work Phone: Start: 01-13-2012 End: 01-14-2012 Nuclear stress test -exercise Nuclear stress test -exercise [facility] Work Phone: Start: 10-31-2011 Provider Instructions for Treatment [facility] Work Phone: Start: 10-16-2011 Provider Instructions for Treatment [facility] Work Phone: Start: 10-11-2011 End: 11-03-2011 *Hepatic Function Panel *Hepatic Function Panel [facility] Work Phone: Start: 10-11-2011 End: 10-11-2011 Follow Up Appt 3 months Follow Up Appt 3 months [facility] Work Phone: Start: 10-11-2011 End: 11-03-2011 Lipid panel [AGGREGATE] *Lipid Profile [facility] Work Phone: Start: 10-11-2011 End: 11-03-2011 *Hepatic Function Panel *Hepatic Function Panel [facility] Work Phone: Start: 10-11-2011 End: 10-11-2011 Follow Up Appt 3 months Follow Up Appt 3 months [facility] Work Phone: Start: 10-11-2011 End: 11-03-2011 Lipid panel [AGGREGATE] *Lipid Profile [facility] Work Phone: Start: 07-19-2011 End: 07-19-2011 Follow Up Appt Other Follow Up Appt Other [facility] Work Phone: Start: 07-19-2011 End: 07-19-2011 Follow Up Appt Other Follow Up Appt Other [facility] Work Phone: Start: 05-30-2011 End: 07-11-2011 *BMP *BMP [facility] Work Phone: Start: 05-30-2011 End: 07-11-2011 *CBC with Differential *CBC with Differential [facility] Work Phone: Start: 05-30-2011 End: 07-11-2011 aPTT *PTT-Partial Thromboplastin Time [facility] Work Phone: Start: 05-30-2011 End: 05-30-2011 Follow Up Appt 6 weeks Follow Up Appt 6 weeks [facility] Work Phone: Start: 05-30-2011 End: 07-11-2011 INR Coag RelTime (PPP) *PT/INR [facility] Work Phone: Start: 05-30-2011 End: 05-30-2011 Left Heart Cath Left Heart Cath [facility] Work Phone: Start: 05-30-2011 End: 07-11-2011 Magnesium *Magnesium [facility] Work Phone: Start: 05-30-2011 End: 07-11-2011 *BMP *BMP [facility] Work Phone: Start: 05-30-2011 End: 07-11-2011 *CBC with Differential *CBC with Differential [facility] Work Phone: Start: 05-30-2011 End: 07-11-2011 aPTT *PTT-Partial Thromboplastin Time [facility] Work Phone: Start: 05-30-2011 End: 07-11-2011 Coagulation factor induced.INR assay in platelet poor plasma *PT/INR [facility] Work Phone: Start: 05-30-2011 End: 05-30-2011 Follow Up Appt 6 weeks Follow Up Appt 6 weeks [facility] Work Phone: Start: 05-30-2011 End: 05-30-2011 Left Heart Cath Left Heart Cath [facility] Work Phone: Start: 05-30-2011 End: 07-11-2011 Magnesium *Magnesium [facility] Work Phone: Start: 2002 Colon cancer screen colonoscopy Colon cancer screen colonoscopy [facility] Work Phone: Start: 2002 Shingles Vaccine (1 of 2) Shingles Vaccine (1 of 2) [facility] Work Phone: Start: 1992 Lipid screen Lipid screen [facility] Work Phone: Start: 1963 DTaP/Tdap/Td vaccine (1 - Tdap) DTaP/Tdap/Td vaccine (1 - Tdap) [facility] Work Phone: Start: 1952 Hepatitis C screen Hepatitis C screen [facility] Work Phone: Patient Education [facility] Work Phone: [facility] Work Phone: [facility] Work Phone: [facility] Work Phone: Immunizations Immunization Date Immunization Notes Care Provider Bev bauer 10-24-2020 COVID-Moderna (100 MCG/0.5 ML) Terri Jos DO Work Phone: [facility] Work Phone: 09-26-2020 COVID-Moderna (100 MCG/0.5 ML) Terri Jos DO Work Phone: [facility] Work Phone: Payers Date Payer Category Payer Unknown [id number] 2015 Unknown [employer] xxxxxxxxxxx 2015-Present [phone] [place] [id number] xxxxxxxxxxx [id number] 1950 Unknown [id number] Unknown [employer] Social History Date Type Detail Facility Alcohol Use: Former smoker [facility] Work Phone: Caffeine Use [facility] Work Phone: Instructions Note Date & Type Note Facility [facility] Work Phone: Instructions Note Date & Type Note Facility [facility] Work Phone: Family History Unknown Family Member Name Dates Details Cancer Comments:Father. Status:Active Diabetes Mellitus Comments:Paternal Grandmothe r. Status:Active Heart Disease Comments:Father. Maternal Gr andfather. Paternal Aunt. Paternal Uncle. Status:Active Hypercholesterolemia Comments:Father. Status:Active Hypertension Comments:Mother. Status:Active Unknown Family Member Name Dates Details Cancer Comments:Father. Status:Active Diabetes Mellitus Comments:Paternal Grandmothe r. Status:Active Heart Disease Comments:Father. Maternal Gr andfather. Paternal Aunt. Paternal Uncle. Status:Active Hypercholesterolemia Comments:Father. Status:Active Hypertension Comments:Mother. Status:Active Unknown Family Member Name Dates Details Cancer Comments:Father. Status:Active Diabetes Mellitus Comments:Paternal Grandmothe r. Status:Active Heart Disease Comments:Father. Maternal Gr andfather. Paternal Aunt. Paternal Uncle. Status:Active Hypercholesterolemia Comments:Father. Status:Active Hypertension Comments:Mother. Status:Active Unknown Family Member Name Dates Details Cancer Comments:Father. Status:Active Diabetes Mellitus Comments:Paternal Grandmothe r. Status:Active Heart Disease Comments:Father. Maternal Gr andfather. Paternal Aunt. Paternal Uncle. Status:Active Hypercholesterolemia Comments:Father. Status:Active Hypertension Comments:Mother. Status:Active Unknown Family Member Name Dates Details Cancer Comments:Father. Status:Active Diabetes Mellitus Comments:Paternal Grandmothe r. Status:Active Heart Disease Comments:Father. Maternal Gr andfather. Paternal Aunt. Paternal Uncle. Status:Active Hypercholesterolemia Comments:Father. Status:Active Hypertension Comments:Mother. Status:Active Unknown Family Member Name Dates Details Cancer Comments:Father. Status:Active Diabetes Mellitus Comments:Paternal Grandmothe r. Status:Active Heart Disease Comments:Father. Maternal Gr andfather. Paternal Aunt. Paternal Uncle. Status:Active Hypercholesterolemia Comments:Father. Status:Active Hypertension Comments:Mother. Status:Active Unknown Family Member Name Dates Details Cancer Comments:Father. Status:Active Diabetes Mellitus Comments:Paternal Grandmothe r. Status:Active Heart Disease Comments:Father. Maternal Gr andfather. Paternal Aunt. Paternal Uncle. Status:Active Hypercholesterolemia Comments:Father. Status:Active Hypertension Comments:Mother. Status:Active Unknown Family Member Name Dates Details Cancer Comments:Father. Status:Active Diabetes Mellitus Comments:Paternal Grandmothe r. Status:Active Heart Disease Comments:Father. Maternal Gr andfather. Paternal Aunt. Paternal Uncle. Status:Active Hypercholesterolemia Comments:Father. Status:Active Hypertension Comments:Mother. Status:Active Unknown Family Member Name Dates Details Cancer Comments:Father. Status:Active Diabetes Mellitus Comments:Paternal Grandmothe r. Status:Active Heart Disease Comments:Father. Maternal Gr andfather. Paternal Aunt. Paternal Uncle. Status:Active Hypercholesterolemia Comments:Father. Status:Active Hypertension Comments:Mother. Status:Active Unknown Family Member Name Dates Details Cancer Comments:Father. Status:Active Diabetes Mellitus Comments:Paternal Grandmothe r. Status:Active Heart Disease Comments:Father. Maternal Gr andfather. Paternal Aunt. Paternal Uncle. Status:Active Hypercholesterolemia Comments:Father. Status:Active Hypertension Comments:Mother. Status:Active Unknown Family Member Name Dates Details Cancer Comments:Father. Status:Active Diabetes Mellitus Comments:Paternal Grandmothe r. Status:Active Heart Disease Comments:Father. Maternal Gr andfather. Paternal Aunt. Paternal Uncle. Status:Active Hypercholesterolemia Comments:Father. Status:Active Hypertension Comments:Mother. Status:Active Instructions Name Dates Details Non-smoker : How to access h ealth information online Indication:Non-smoker Non-smoker : How to access h ealth information online - Detail Indication:Non-smoker Non-smoker : Patient Instruc tions Indication:Non-smoker Name Dates Details Non-smoker : How to access h ealth information online Indication:Non-smoker Non-smoker : How to access h ealth information online - Detail Indication:Non-smoker Non-smoker : Patient Instruc tions Indication:Non-smoker Name Dates Details How to access health informa tion online Indication:Non-smoker Start:24-Sep-2018 Instruction Type:Patient Education How to access health informa tion online - Detail Indication:Non-smoker Start:24-Sep-2018 Instruction Type:Patient Education Patient Instructions Indication:Non-smoker Start:24-Sep-2018 Instruction Type:Provider Instructions for Treatment Name Dates Details How to access health informa tion online Indication:Non-smoker Start:24-Sep-2018 Instruction Type:Patient Education How to access health informa tion online - Detail Indication:Non-smoker Start:24-Sep-2018 Instruction Type:Patient Education Patient Instructions Indication:Non-smoker Start:24-Sep-2018 Instruction Type:Provider Instructions for Treatment Name Dates Details How to access health informa tion online Indication:Non-smoker Start:24-Sep-2018 Instruction Type:Patient Education How to access health informa tion online - Detail Indication:Non-smoker Start:24-Sep-2018 Instruction Type:Patient Education Patient Instructions Indication:Non-smoker Start:24-Sep-2018 Instruction Type:Provider Instructions for Treatment Name Dates Details How to access health informa tion online Indication:Non-smoker Start:01-May-2020 Instruction Type:Patient Education How to access health informa tion online - Detail Indication:Non-smoker Start:01-May-2020 Instruction Type:Patient Education Patient Instructions Indication:Non-smoker Start:01-May-2020 Instruction Type:Provider Instructions for Treatment How to access health informa tion online Indication:Non-smoker Start:24-Sep-2018 Instruction Type:Patient Education How to access health informa tion online - Detail Indication:Non-smoker Start:24-Sep-2018 Instruction Type:Patient Education Patient Instructions Indication:Non-smoker Start:24-Sep-2018 Instruction Type:Provider Instructions for Treatment Name Dates Details How to access health informa tion online Indication:Non-smoker Start:01-May-2020 Instruction Type:Patient Education How to access health informa tion online - Detail Indication:Non-smoker Start:01-May-2020 Instruction Type:Patient Education Patient Instructions Indication:Non-smoker Start:01-May-2020 Instruction Type:Provider Instructions for Treatment How to access health informa tion online Indication:Non-smoker Start:24-Sep-2018 Instruction Type:Patient Education How to access health informa tion online - Detail Indication:Non-smoker Start:24-Sep-2018 Instruction Type:Patient Education Patient Instructions Indication:Non-smoker Start:24-Sep-2018 Instruction Type:Provider Instructions for Treatment Name Dates Details How to access health informa tion online Indication:Non-smoker Start:01-May-2020 Instruction Type:Patient Education How to access health informa tion online - Detail Indication:Non-smoker Start:01-May-2020 Instruction Type:Patient Education Patient Instructions Indication:Non-smoker Start:01-May-2020 Instruction Type:Provider Instructions for Treatment How to access health informa tion online Indication:Non-smoker Start:24-Sep-2018 Instruction Type:Patient Education How to access health informa tion online - Detail Indication:Non-smoker Start:24-Sep-2018 Instruction Type:Patient Education Patient Instructions Indication:Non-smoker Start:24-Sep-2018 Instruction Type:Provider Instructions for Treatment Name Dates Details How to access health informa tion online Indication:Non-smoker Start:24-Sep-2018 Instruction Type:Patient Education How to access health informa tion online - Detail Indication:Non-smoker Start:24-Sep-2018 Instruction Type:Patient Education Patient Instructions Indication:Non-smoker Start:24-Sep-2018 Instruction Type:Provider Instructions for Treatment Summary Purpose Advance Directives Documents on File Type Date Recorded Patient Instructional Systems Design Consultant Expl anation Advance Directives and Living Will Power of Field Installation Technician Name Dates Details Immunization Registry [place] - Effective on 10/03/2020. Expiration date unspecified Effective:03-Oct-2020 Name Dates Details Immunization Registry [place] - Effective on 10/03/2020. Expiration date unspecified Effective:03-Oct-2020 Reason for Referral Status Reason Specialty Diagnoses / Procedures Referre d By Contact Referred To Contact [facility] Diagnoses Abdominal aortic aneurysm (AAA) without rupture (HCC) Procedures VL Aorta IVC Bypass Graft Miguel De MD [address] [place] [address], [address] [place] [id number] Assessments Diagnosis Abdominal aortic aneurysm (AAA) without rupture (HCC) Additional Source Comments (unrecognized sect ion and content) No Status Records FoundNo Status Records Found INFORMATION SOURCE (unrecogn ized section and content) DATE CREATED AUTHOR AUTHOR'S ORGANIZ ATION 08/31/2019 [facility] FOR RECORDS PERTAINING TO PATIENTS WHO ARE OR HAVE BEEN ENROLLED IN A CHEMICAL DEPENDENCY/SUBSTANCEABUSE PROGRAM, SOME INFORMATION MAY BE OMITTED. This clinical summary was aggregated from multiple sources. Caution should be exercised in using it in the provision of clinical care. This summary normalizes information from multiple sources, and as a consequence, information in this document may materially change the coding, format and clinical context of patient data. In addition, data may be omitted in some cases. CLINICAL DECISIONS SHOULD BE BASED ON THE PRIMARY CLINICAL RECORDS. [employer] ([employer] [facility]. provides no warranty or guarantee of the accuracy or completeness of information in this document.
== END | disposition home or self-care (01) ==
PROVIDERS: PCP Internal Medicine; Referring Provider Physician Assistant; Visit Provider Physician Assistant
DX: M25.562 Pain in left knee (principal)
CPT/HCPCS: 73562

== ENCOUNTER → 2023-07-29 | Outpatient (CLI) | payer MEDICARE, OTHER, SELFPAY ==
--- NOTE | 2023-07-29 13:39 | VDLE_ITS ---
Reason For Study: Pain in left knee RIGHT LEFT CFV is compressible, spontaneous, phasic, GSV is normal. competent and demonstrates normal CFV is compressible, spontaneous, phasic, augmentation. competent, and demonstrates normal Procedure augmentation. This is a venous duplex using B-mode, color FV is compressible, spontaneous, phasic, flow and spectral Doppler. competent and demonstrates normal Exam performed in department. augmentation. A preliminary report was called and/or faxed POP V is compressible, spontaneous, phasic, to [facility] and PCP: Dr. Arguello. competent and demonstrates normal augmentation. T/P Trunk is compressible. PTV is compressible. LT PerV is compressible. VL/Venous Duplex US, Unilateral Interpretation Summary Deep veins of the left lower extremity are patent and compressible segmentally. There is no evidence of left lower extremity deep vein thrombosis. The left great saphenous vein lee ears patent and compressible segmentally. Ordering Physician: Agusto Magallanes Referring Physician: Terri Arguello M.D. Performed By: Jo Ann An RVT
== END | disposition home or self-care (01) ==
LOC: CVS 13:37
PROVIDERS: PCP Internal Medicine; Referring Provider Physician Assistant; Visit Provider Physician Assistant
DX: M79.662 Pain in left lower leg (principal)
CPT/HCPCS: 93971

== ENCOUNTER → 2023-09-15 | Outpatient (CLI) | payer MEDICARE, OTHER, SELFPAY ==
--- OUTSIDE RECORDS SUMMARY | 2023-09-15 07:40 | XMS RPT_ITS | CCD ---
Author Name Unknown Address [address] [place] [address] Organization [facility] Care Team Providers Care Slip Dumper Name Role Phone Susan Pizano Unavailable Unavailable Jeremías Mccray Unavailable Unavailable ALYSA Dunbar, Lisa Ospina Unavailable Susan Pizano Unavailable Unavailable Terri Arguello Unavailable [facility] Unavailable Ifrah Enriquez Unavailable Unavailable Unavailable Unavailable Unavailable Unavailable Terri Arguello Attending Unavailable Terri Arguello Consulting Unavailable Terri Arguello Primary Care Provider [phone] Ifrah Enriquez Unavailable Unavailable Mikel Malloy Unavailable Unavailable Terri Arguello DO Unavailable [facility] Unavailable Mikel Malloy LPN Unavailable Unavailable Unavailable Unavailable Allergies Allergy Classification Reported Allergen(s) Allergy Type Date of Onset Reaction(s) Facility (4 sources) clopidogrel drug allergy 1 Rash [facility] Work Phone: (12 sources) clopidogrel; [...] Coronary arteriosclerosis; Translations: [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] Onset: 12-24-2010 [...] 09-05-2014 Episodic Other aftercare (1 source) Other computer terminal operator (current) drug therapy; Translations: [Other correction (current) drug therapy] Onset: 02-01-2011 02-01-2011 Episodic [...] Results Test Name Value Interpretation Reference Range [facility] Vital Signs Date Time Vital Sign Value Performing Clinician Facility 05-01-2020 08:46-0400 BMI (Body Mass Index) 31.02 kg/m2 Mikel Malloy LPN [facility] Work Phone: 05-01-2020 08:46-0400 Body weight 96.67 kg Mikel Malloy LPN [facility] Work Phone: 05-01-2020 08:46-0400 BSA (Body Surface Area) 2.13 m2 Mikel Malloy LPN [facility] Work Phone: 05-01-2020 08:46-0400 Height 176.53 cm Mikel Malloy LPN [facility] Work Phone: 09-24-2018 12:33-0400 BMI (Body Mass Index) 31.02 kg/m2 Ifrah Enriquez RN [facility] Work Phone: 09-24-2018 12:33-0400 Body [...] Duplex scan Procedure Note: See Note; NOTES: [facility] [address] [place] [address] Abd Aortic/IVC Duplex scan 02/27/22 0812 MR#: [id number] Acct: [id number] Name: CHRIS PEDRAZA Rep #: [id number] : 1950 71 From: Christopher Leary MD Attending Dr: Dr. Christopher Leary MD Status: DE P CLI Ordering Dr: Christopher Leary MD Date: 02/27/22 Location: [facility] Sex: M C Admitted: [id number] VL AAVD Abd Aortic/IVC Duplex scan [id number] Reason For Study: AAA Repair Aorta Measurements [...] DO Date Dictated: 02/27/22811 Date Transcribed: 03/06/22818 Furnace Combustion Tester: Kylah Arguello DO Work Phone: Start: 02-27-2022 End: 03-06-2022 Ankle Brachial Index Procedure Note: See Note; NOTES: [facility] [address] [place], [place] [address]lloyd [place] [address] Ankle Brachial Index 02/27/22 08 MR#: [id number] Acct: [id number] Name: CHRIS PEDRAZA Rep #: [id number] : 1950 71 From: Christopher Leary MD Attending Dr: Dr. Christopher Leary MD Status: DE P CLI Ordering Dr: Christopher Leary MD Date: 02/27/22 Location: [facility] Sex: M C Admitted: [id number] VL ANGELA Ankle Brachial Index [id number] Reason For Study: AAA Repair Procedure A [...] DO Date Dictated: 02/27/22805 Date Transcribed: 03/06/22818 Furnace Combustion Tester: Signed Terri Arguello DO Work Phone: Start: 02-22-2022 End: 02-22-2022 Cardiology Visit Report Procedure Note: See Note; NOTES: [facility] [address] [place] [address] OFFICE VISIT Date of Service: 02/22/22 MR#: [id number] Acct: [id number] Name: CHRIS PEDRAZA Rep #: [id number] : 1950 Provider: Dr. Shawn Falcon MD Age/Sex: 71/M Location: [facility] Status: Signed HPI HPI History of Present [...] following up with a vascular surgeon in [place]. 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 [place] [address] OFFICE VISIT Date of Service: 03/02/21 MR#: [id number] Acct: [id number] Name: CHRIS PEDRAZA Rep #: [id number] : 1950 Provider: LAMIN ferris Age/Sex: 70/M Location: [facility] Status: Signed HPI HPI History of Present [...] following up with a vascular surgeon in [place]. 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 We will continue to monitor. (3) Abdominal aortic aneurysm (AAA): Status: Chronic Comment: Endovascular AAA repair 12/2010 Plan - Miguel Michelle LEAD MOBILE DEVELOPER, LEAD MOBILE DEVELOPER-C: His most recent office visit with vascular [...] hypertension: Status: Chronic Plan - Miguel Michelle LEAD MOBILE DEVELOPER, LEAD MOBILE DEVELOPER-C: Patient's blood pressure is well-controlled. We will continue to monitor. We will not make any medication regimen changes. (5) Hyperlipidemia: Status: Chronic Qualifiers: Hyperlipidemia type: pure hypercholesterolemia Qualified Code(s): E78.00 - Pure hypercholesterolemia, unspecified; E78.0 - Pure hypercholesterolemia Orders: Orders: Lipid Profile Today Liver Profile Today Shannan - Miguel Michelle LEAD MOBILE DEVELOPER, LEAD MOBILE DEVELOPER-C: He was asked to undergo repeat lipid and liver panel at his earliest convenience in a fasting state. He will continue with atorvastatin 40 mg p.o. daily in the interim. Based on results of laboratory testing, further recommendation will be made. Plan Details Follow Up: Dr. 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 transplanted heart: tolowa dee-ni' heart History of coronary artery stent placement [...] Signature: Date (if applicable) CC: Dr. Terri Arugello, DO Terri Arguello DO Work Phone: Start: 01-30-2021 End: 01-30-2021 Ankle Brachial Index Comments: See Note; NOTES: [facility] [address] [place] [address]. [place] [address] Ankle Brachial Index 01/30/21 0802 MR#: [id number] Acct: [id number] Name: CHRIS PEDRAZA Rep #: [id number] : 1950 70 From: Chirstopher Leary MD Attending Dr: Dr. Christopher Leary MD Status: RE G CLI Ordering Dr: Christopher Leary MD Date: 01/30/21 Location: [facility] Sex: M C Admitted: Reason For Study: [...] Date Dictated: 01/30/21801 Date Transcribed: 01/30/21 1004 Furnace Combustion Tester: Signed Terri Arguello DO Work Phone: Start: 01-30-2021 End: 01-30-2021 Abd Aortic/IVC Duplex scan Comments: See Note; NOTES: [facility] [address] [place] [address] Abd Aortic/IVC Duplex scan 01/30/21815 MR#: [id number] Acct: [id number] Name: CHRIS PEDRAZA Rep #: [id number] : 1950 70 From: Christopher Leary MD Attending Dr: Dr. Christopher Leary MD Status: G CLI Ordering Dr: Christopher Leary MD Date: 01/30/21 Location: [facility] Sex: M C Admitted: Reason For Study: [...] Aorta IVC Iliac vasculature or bypass grafts 48587. The exam was diagnostic. Exam performed in department. VL/Abd Aortic/IVC Duplex scan Interpretation Summary No evidence of aortic iliac aneurysm or stenosis. _ Ordering Physician: Christopher Leary Performed By: Danny Veloz RVT and Student 01/30/21 1004 Date Christopher Leary MD CC: Dr. Christopher Leary MD; Dr. Terri Arguello, Date Dictated: 01/30/2116 Date Transcribed: 01/30/21 1004 Furnace Combustion Tester: Signed Terri Arguello DO Work Phone: Start: 03-08-2020 End: 03-08-2020 Operative Report Comments: See Note; NOTES: [facility] Medical Records Department [address] [place] [address] Operative Report 03/08/20 1144 MR#: [id number] Acct: [id number] Name: CHRIS PEDRAZA Rep #: [id number] : 1950 70 From: Derrek Gann MD PCP: Dr. Terri Arguello DO Status:[facility] Y Location: [place] [address] Report of Operation Date of Procedure: 03/08/20 [...] went in the bladder with a 21 Andorran rigid cystourethroscope, the entire bladder was clear [...] 03-08-2020 Discharge Instruction Comments: See Note; NOTES: [facility] Medical Records Department [address] [place] [address] Instructions for Home/Discharge Instructions 03/08/20 1127 MR#: [id number] Acct: [id number] Name: PEDRAZACHRIS Rep #: [id number] : 1950 70 From: Derrek Gann MD PCP: Dr. Terri Arguello DO Status:REG [facility] Discharge Diet: Light diet - advance as [...] BID #6 tab 03/08/20 Hydrocodone Bitart/Apap 5-325 [Corinna 5MG-325MG] 1 tablet PO Q4H PRN PRN 5 Days #14 tablet 03/08/20 The following prescriptions were given: Ciprofloxacin [Cipro] 500 mg PO BID #6 tab Transmission Status: Pending to [facility]/pharmacy #[id number] Hydrocodone Bitart/Apap 5-325 [Corin[place] 5MG-325MG] 1 tablet PO Q4H PRN PRN 5 Days #14 tablet PRN Reason: Pain Transmission Status: Received by [facility]/pharmacy #[id number] Primary Care Physician: Terri Arguello DO [...] and Physical Exam Comments: See Note; NOTES: [facility] Medical Records Department [address] [place] [address] History and Physical 03/08/20 1124 MR#: [id number] Acct: [id number] Name: CHRIS PEDRAZA Rep #: [id number] : 1950 70 From: Derrek Gann MD PCP: Dr. 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 Derrek Gann MD Status: PRE AKC Ordering Dr: Tom Vo MD Date: 03/01/20 Location: [facility] Sex: M C Admitted: Test Reason : [...] Abnormal ECG Confirmed by LOPEZ MCKEON ([id number]), features editor BRIGETTE MORALES ([id number]) on 03/06/2020 9:47:51 AM Referred By: Derrek Gann Confirmed By:LOPEZ MCKEON 03/06/20 0947 Date Lopez Mckeon MD CC: Dr. Tom Vo MD; Dr. Derrek Gann MD; Dr. Terri Arguello DO Signed Terri Arguello Start: 02-24-2020 End: 02-24-2020 Cardiology Visit Report Comments: See Note; NOTES: [facility] [address] [place] [address] OFFICE VISIT Date of Service: 02/24/20 MR#: [id number] Acct: [id number] Name: CHRIS PEDRAZA Rep #: [id number] : 1950 Provider: Dr. Shawn Falcon MD Age/Sex: 69/M Location: [facility] Status: Signed HPI HPI History of Present [...] following up with a vascular surgeon in [place]. 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 This will be arranged for him. 4. [...] surgery. Plan Detail 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 ([facility]) Coding Level of Care Code Off vis,est,level [...] Care Visit Report Comments: See Note; NOTES: [facility] [address] [place] [address] OFFICE VISIT Date of Service: 06/16/19 MR#: [id number] Acct: [id number] Name: PEDRAZACHRIS GARCIA Liliana Rep #: [id number] : 1950 Provider: Agusto VU Age/Sex: 69/M Location: [facility] Status: Signed Intake Vital Signs06/16/19 Body Mass Index (BMI) 31.7 06/16/19 Height 5 ft 8.5 in Intake Visit Reasons: Left shoulder, [employer] Chief Complaint: Left shoulder injury Allergies [...] DAILY #90 tab 05/17/19 [Rx Confirmed 06/16/19] [facility] Medical History (Updated 06/16/19 @ 16:01 by Ariane Thomas) History of myocardial infarction (Chronic) 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's emergency department where radiographs revealed no [...] the above. This note was generated with [employer] dictation software. 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 Call [facility] ([phone]) or report to the closest Emergency Room. Call 911 if necessary. 06/11/19 1419 <Electronically signed by Javier Carnes MD> Date Javier Carnes MD Cosigner Signature (If Indicated): Date CC: Care Corporate; Terri Alexander Start: 10-21-2018 End: 10-21-2018 Stress Report Comments: See Note; NOTES: [facility] [address] [place] [address] MR#: [id number] Acct: [id number] Name: CHRIS PEDRAZA Rep #: [id number] : 1950 68 From: Shawn Falcon MD [...] DO Date Dictated: 10/21/1834 Date Transcribed: 10/21/18833 Furnace Combustion Tester: [place] Signed Terri Arguello Start: 10-08-2018 End: 10-08-2018 Cardiology Visit Report Comments: See Note; NOTES: [facility] [address] [place] [address] OFFICE VISIT Date of Service: 10/08/18 MR#: [id number] Acct: [id number] Name: CHRIS PEDRAZA Rep #: [id number] : 1950 Provider: Shawn Falcon MD Age/Sex: 68/M Location: 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 (Chronic) Hyperlipidemia (Chronic) group home use of drug (Chronic) Hypertension (Chronic) Dizziness [...] PTCA/stent of distal LCx AND distal RCA; [facility] 06/04/11 with subsequent PCI to mid CX [...] Orders: Plan Detail 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 (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) Coding Level of Care Code Off vis,est,level [...] or 3 Views Comments: See Note; NOTES: [facility] Imaging Services [address] [place] [address] Lumbar Spine 2 or 3 Views MR#: [id number] Acct: [id number] Name: PEDRAZACHRIS L Rep #: [id number] : 1950 68 From: Ian Narayanan MD PCP: Terri Arguello DO Status: REG CLI Study: Lumbar Spine 2 or 3 Views Date of Exam: 09/25/18 Exam# [id number] Ordering Dr: Terri Arguello DO STUDY: X-RAY [...] Service support , CC: Terri Arguello DO Furnace Combustion Tester: Signed Terri Arguello Work Phone: Start: 09-25-2018 End: 09-26-2018 Shoulder min 2 Views Comments: See Note; NOTES: [facility] Imaging Services [address] [place] [address] Shoulder min 2 Views MR#: [id number] Acct: [id number] Name: CHRIS PEDRAZA Rep #: [id number] : 1950 M 68 From: Hood Ladd MD PCP: Terri Arguello DO Status: REG CLI Study: Shoulder min 2 Views Date of Exam: 09/25/18 Exam# [id number] Ordering Dr: Terri Arguello DO STUDY: X-RAY [...] min 2 Views CC: Terri Arguello DO Furnace Combustion Tester: Signed Terri Arguello Work Phone: Start: 10-07-2017 End: 10-07-2017 Cardiology Visit Report Comments: See Note; NOTES: [facility] [address] [place] [address] OFFICE VISIT Date of Service: 10/07/17 MR#: [id number] Acct: [id number] Name: CHRIS PEDRAZA Rep #: [id number] : 1950 Provider: Shawn Falcon MD Age/Sex: 67/M Location: 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 Atherosclerosis of tolowa dee-ni' coronary artery of tolowa dee-ni' heart without angina pectoris I25.10 Plan He [...] Other Medications New: 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 (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) Coding Level of Care Code Off vis,est,level 3 Diagnoses Atherosclerosis of tolowa dee-ni' coronary artery of tolowa dee-ni' heart without angina pectoris I25.10 [place] vs. transplanted heart: tolowa dee-ni' heart Essential hypertension I10 Hypertension type: essential hypertension Pure hypercholesterolemia E78.00; E78.0 Hyperlipidemia type: pure hypercholesterolemia Coding Level of Care Code Off vis,est,level 3 Diagnoses Atherosclerosis of tolowa dee-ni' coronary artery of tolowa dee-ni' heart without angina pectoris I25.10 [place] vs. transplanted heart: tolowa dee-ni' heart Essential hypertension I10 Hypertension type: essential [...] Shawn Falcon MD Start: 09-24-2016 End: 09-24-2016 [facility] Shawn Falcon MD Start: 07-27-2016 End: 07-27-2016 Discharge Instruction Comments: See Note; NOTES: [facility] Medical Records Department [address] [place] [address] Instructions for Home/Discharge Instructions 07/27/16 0914 MR#: [id number] Acct: [id number] Name: CHRIS PEDRAZA Liliana Rep #: [id number] : 1950 66 From: Yaakov Ruiz MD PCP: Terri Arguello DO Status: REG [facility] Discharge Diet: No Restrictions - ENCOURAGE FLUIDS [...] Please Follow Up With: Yaakov Ruiz - [phone] When: CALL SOON FOR FOLLOW UP APPT FOR 2-3 WKS 07/27/16 0917 <Electronically signed by Yaakov Ruiz MD> Date Yaakov Ruiz MD CC: Terri Alexander Start: 07-27-2016 End: 07-27-2016 Operative Report Comments: See Note; NOTES: [facility] Medical Records Department [address] [place] [address] Operative Report MR#: [id number] Acct: [id number] Name: CHRIS PEDRAZA Rep #: [id number] : 1950 66 From: Yaakov Ruiz MD PCP: Terri Arguello DO Status: [facility] DATE OF SERVICE: 07/26/2016 DATE OF SERVICE: [...] unable to induce any bleeding and an 18-Andorran catheter was placed to drainage. The patient was then taken to recovery in stable condition. Yaakov Ruiz MD T: NTS JOB: [id number] 07/27/16 0851 <Electronically signed by Yaakov Ruiz MD> Date Yaakov Ruiz MD Cosigner Signature (If Indicated): Date CC: Terri Arguello DO; Yaakov Ruiz MD Date Dictated: 07/26/16 1147 Date Transcribed: 07/26/161146 Furnace Combustion Tester: Signed Terri Arguello Start: 07-26-2016 End: 07-26-2016 12 lead ECG Comments: See Note; NOTES: [facility] Cardi[facility] Services [address] [place] [address] EKG - SDC 07/24/16837 MR#: [id number] Acct: [id number] Name: CHRIS PEDRAZA Rep #: [id number] : 1950 66 From: Lopez Mckeon MD Attending Dr: Yaakov Ruiz MD Status: REG [facility] Ordering Dr: Emmett Martinez MD Date: 07/24/16 [...] bradycardia Abnormal ECG Confirmed by LOPEZ MCKEON ([id number]), features editor YOSSI MEYER ([id number]) on 07/26/2016 3:10:11 PM Referred By: BAKARI CLARKE Confirmed By:LOPEZ MCKEON 07/26/16 1510 Date Lopez Mckeon MD CC: Lopez Mckeon MD; Terri Arguello DO Date Dictated: 07/24/16837 Date Transcribed: 07/24/16837 Furnace Combustion Tester: Signed Terri Arguello Work Phone: Start: 03-19-2016 [...] Shawn Falcon MD Start: 10-18-2014 End: 10-18-2014 LOZENGE MAKER HELPER Lisa Dunbar PA-C Work Phone: Start: 10-18-2014 End: 10-19-2014 Documentation of current medications Lisa Dunbar PA-C Work Phone: Start: 10-18-2014 End: 10-18-2014 Follow Up Appt 6 months Lisa Dunbar PA-C Work Phone: Start: 10-18-2014 End: 10-18-2014 LOZENGE MAKER HELPER Lisa Dunbar PA-C Work Phone: Start: 10-18-2014 End: 10-19-2014 Documentation of current medications Lisa Dunbar PA-C Work Phone: Start: 10-18-2014 End: 10-18-2014 Follow Up Appt 6 months Lisa Dunbar PA-C Work Phone: Start: 09-14-2014 End: 09-16-2014 Nuclear Stress Test - Treadmil Comments: See Note; NOTES: [facility] Imaging Services [address] [place] [address] Nuclear Medicine Report MR#: [id number] Acct: [id number] Name: CHRIS PERDAZA Rep #: [id number] : 1950 M 64 From: Shawn Falcon MD PCP: Terri Arguello DO Status: [facility] Study: Nuclear Stress Test - Treadmnd Date of Exam: 09/14/14 Exam# [id number] Ordering Dr: Lisa Arana EXERCISE MYOCARDIAL PERFUSION [...] infarct. CC: Terri Arguello DO; Lisa Arana Furnace Combustion Tester: ZAMORA Kylah Arguello Start: 09-05-2014 End: 09-13-2014 *CBC with Differential Lisa Dunbar PA-C Work Phone: Start: 09-05-2014 End: 09-13-2014 *CMP Complete Metabolic Panel Lisa Dunbar PA-C Work Phone: Start: 09-05-2014 End: 09-05-2014 LOZENGE MAKER HELPER Lisa Dunbar PA-C Work Phone: Start: 09-05-2014 [...] PA-C Work Phone: Start: 09-05-2014 End: 09-05-2014 LOZENGE MAKER HELPER Lisa Dunbar PA-C Work Phone: Start: 09-05-2014 [...] 05-14-2014 End: 09-05-2014 *Hepatic Function Panel Shawn Falocn MD Start: 05-14-2014 End: 09-05-2014 Lipid panel [...] End: 07-19-2011 Follow Up Appt Other Scott Rye MD Start: 05-30-2011 End: 07-11-2011 *BMP Scott [...] Author Start: 05-01-2020 Procedure Education Eprescribed prescriptions ([id number]) [facility] Work Phone: Start: 05-01-2020 [place] influenza 2019 Novel Coronavirus (COVID-19), JUVE ([id number]) [facility] Work Phone: Start: 03-14-2019 Influenza vaccination Flu vaccine (#1) [facility] Work Phone: Start: 11-28-2017 End: 06-02-2017 *Hepatic Function Panel *Hepatic Function Panel [facility] Work Phone: Start: 11-28-2017 End: 06-02-2017 Lipid panel [AGGREGATE] *Lipid Profile CC PCP [facility] Work Phone: Start: 10-07-2017 End: 10-07-2017 Appointment Appointment [facility] Work Phone: Start: 03-28-2017 End: 05-30-2017 *Hepatic Function Panel *Hepatic Function Panel [facility] Work Phone: Start: 03-28-2017 End: 03-28-2017 LOZENGE MAKER HELPER LOZENGE MAKER HELPER [facility] Work Phone: Start: 03-28-2017 End: 03-28-2017 Follow Up Appt 6 months Follow Up Appt 6 months [facility] Work Phone: Start: 03-28-2017 End: 05-30-2017 Lipid panel [AGGREGATE] *Lipid Profile CC PCP [facility] Work Phone: Start: 03-28-2017 End: 03-28-2017 *Hepatic Function Panel *Hepatic Function Panel [facility] Work Phone: Start: 03-28-2017 End: 03-28-2017 LOZENGE MAKER HELPER LOZENGE MAKER HELPER [facility] Work Phone: Start: 03-28-2017 End: 03-28-2017 Follow Up Appt 6 months Follow Up Appt 6 months [facility] Work Phone: Start: 03-28-2017 End: 03-28-2017 Lipid panel [AGGREGATE] *Lipid Profile CC PCP [facility] Work Phone: Start: 2017 Pneumococcal 65+ years Vaccine (1 of 1 - PPSV23) Pneumococcal 65+ years Vaccine (1 of 1 - PPSV23) [facility] Work Phone: Start: 01-21-2017 End: 03-28-2017 *Hepatic Function Panel *Hepatic Function Panel [facility] Work Phone: Start: 01-21-2017 End: 03-28-2017 Lipid panel [AGGREGATE] *Lipid Profile CC PCP [facility] Work Phone: Start: 01-21-2017 End: 03-28-2017 *Hepatic Function Panel *Hepatic Function Panel [facility] Work Phone: Start: 01-21-2017 End: 03-28-2017 Lipid panel [AGGREGATE] *Lipid Profile CC PCP [facility] Work Phone: Start: 09-24-2016 End: 09-24-2016 Follow Up Appt 6 months Follow Up Appt 6 months [facility] Work Phone: Start: 09-24-2016 End: 09-24-2016 MMM MMM [facility] Work Phone: Start: 09-24-2016 End: 09-24-2016 Follow Up Appt 6 months Follow Up Appt 6 months [facility] Work Phone: Start: 09-24-2016 End: 09-24-2016 MMM MM [facility] Work Phone: Start: 03-19-2016 End: 03-18-2017 *Hepatic Function Panel *Hepatic Function Panel [facility] Work Phone: Start: 03-19-2016 End: 03-19-2016 Follow Up Appt 6 months Follow Up Appt 6 months [facility] Work Phone: Start: 03-19-2016 End: 07-24-2016 Lipid panel [AGGREGATE] *Lipid Profile CC PCP [facility] Work Phone: Start: 03-19-2016 End: 03-19-2016 MMM MMM [facility] Work Phone: Start: 03-19-2016 End: 03-18-2017 *Hepatic Function Panel *Hepatic Function Panel [facility] Work Phone: Start: 03-19-2016 End: 03-19-2016 Follow Up Appt 6 months Follow Up Appt 6 months [facility] Work Phone: Start: 03-19-2016 End: 07-24-2016 Lipid panel [AGGREGATE] *Lipid Profile CC PCP [facility] Work Phone: Start: 03-19-2016 End: 03-19-2016 MMM MMM [facility] Work Phone: Start: 09-15-2015 End: 09-15-2015 LOZENGE MAKER HELPER LOZENGE MAKER HELPER [facility] Work Phone: Start: 09-15-2015 End: 09-15-2015 Follow Up Appt 6 months Follow Up Appt 6 months [facility] Work Phone: Start: 09-15-2015 End: 09-15-2015 LOZENGE MAKER HELPER LOZENGE MAKER HELPER [facility] Work Phone: Start: 09-15-2015 [...] Lipid panel [AGGREGATE] *Lipid Profile CC PCP [facility] Work Phone: Start: 03-17-2015 End: 03-17-2015 MMM MMM [facility] Work Phone: Start: 03-17-2015 End: 03-17-2015 Follow Up Appt 6 months Follow Up Appt 6 months [facility] Work Phone: Start: 03-17-2015 End: 03-17-2015 MMM MMM [facility] Work Phone: Start: 03-16-2015 End: 09-07-2015 *Hepatic Function Panel *Hepatic Function Panel [facility] Work Phone: Start: 03-16-2015 End: 09-07-2015 Lipid panel [AGGREGATE] *Lipid Profile CC PCP [facility] Work Phone: Start: 03-16-2015 End: 03-17-2015 *Hepatic Function Panel *Hepatic Function Panel [facility] Work Phone: Start: 03-16-2015 End: 03-17-2015 Lipid panel [AGGREGATE] *Lipid Profile CC PCP [facility] Work Phone: Start: 10-18-2014 End: 10-18-2014 LOZENGE MAKER HELPER LOZENGE MAKER HELPER [facility] Work Phone: Start: 10-18-2014 End: 10-18-2014 Follow Up Appt 6 months Follow Up Appt 6 months [facility] Work Phone: Start: 10-18-2014 End: 10-18-2014 LOZENGE MAKER HELPER LOZENGE MAKER HELPER [facility] Work Phone: Start: 10-18-2014 End: 10-18-2014 Follow Up Appt 6 months Follow Up Appt 6 months [facility] Work Phone: Start: 09-05-2014 End: 09-13-2014 *CBC with Differential *CBC with Differential [facility] Work Phone: Start: 09-05-2014 End: 09-13-2014 *CMP Complete Metabolic Panel *CMP Complete Metabolic Panel [facility] Work Phone: Start: 09-05-2014 End: 09-05-2014 LOZENGE MAKER HELPER LOZENGE MAKER HELPER [facility] Work Phone: Start: 09-05-2014 End: 09-05-2014 Follow Up Appt 6 months Follow Up Appt 6 months [facility] Work Phone: Start: 09-05-2014 End: 09-13-2014 Lipid panel [AGGREGATE] *Lipid Profile CC PCP [facility] Work Phone: Start: 09-05-2014 End: 09-05-2014 Nuclear stress test -exercise Nuclear stress test -exercise [facility] Work Phone: Start: 09-05-2014 End: 09-13-2014 *CBC with Differential *CBC with Differential [facility] Work Phone: Start: 09-05-2014 End: 09-13-2014 *CMP Complete Metabolic Panel *CMP Complete Metabolic Panel [facility] Work Phone: Start: 09-05-2014 End: 09-05-2014 LOZENGE MAKER HELPER LOZENGE MAKER HELPER [facility] Work Phone: Start: 09-05-2014 End: 09-05-2014 Follow Up Appt 6 months Follow Up Appt 6 months [facility] Work Phone: Start: 09-05-2014 End: 09-13-2014 Lipid panel [AGGREGATE] *Lipid Profile CC PCP [facility] Work Phone: Start: 09-05-2014 End: 09-05-2014 Nuclear stress test -exercise Nuclear stress test -exercise [facility] Work Phone: Start: 05-14-2014 End: 09-05-2014 *Hepatic Function Panel *Hepatic Function Panel [facility] [employer] Work Phone: Start: 05-14-2014 End: 09-05-2014 Lipid panel [AGGREGATE] *Lipid Profile CC PCP [facility] [employer] Work Phone: Start: 05-14-2014 End: 09-05-2014 *Hepatic Function Panel *Hepatic Function Panel [facility] [employer] Work Phone: Start: 05-14-2014 End: 09-05-2014 Lipid panel [AGGREGATE] *Lipid Profile CC PCP [facility] [employer] Work Phone: Start: 05-12-2014 Provider Instructions for Treatment *Otitis Externa Education [facility] Work Phone: Start: 03-04-2014 End: 03-04-2014 Ecg routine ecg w/least 12 lds w/i&r EKG (In office) [facility] [employer] Work Phone: Start: 03-04-2014 End: 03-04-2014 Follow Up Appt 6 months Follow Up Appt 6 months [facility] Work Phone: Start: 03-04-2014 End: 03-04-2014 MMM MMM [facility] Work Phone: Start: 03-04-2014 End: 03-04-2014 Electrocardiogram, complete EKG (In office) [facility] Work Phone: Start: 03-04-2014 End: 03-04-2014 Follow Up Appt 6 months Follow Up Appt 6 months [facility] [employer] Work Phone: Start: 03-04-2014 End: 03-04-2014 MMM MMM [facility] [employer] Work Phone: Start: 09-09-2013 End: 09-09-2013 LOZENGE MAKER HELPER LOZENGE MAKER HELPER [facility] Work Phone: Start: 09-09-2013 End: 09-09-2013 Follow Up Appt 6 months Follow Up Appt 6 months [facility] Work Phone: Start: 09-09-2013 End: 09-09-2013 LOZENGE MAKER HELPER LOZENGE MAKER HELPER [facility] Work Phone: Start: 09-09-2013 End: 09-09-2013 Follow Up Appt 6 months Follow Up Appt 6 months [facility] Work Phone: Start: 08-14-2013 End: 12-09-2013 *Hepatic Function Panel *Hepatic Function Panel [facility] Work Phone: Start: 08-14-2013 End: 12-09-2013 Lipid panel [AGGREGATE] *Lipid Profile CC PCP [facility] Work Phone: Start: 08-14-2013 End: 12-09-2013 *Hepatic Function Panel *Hepatic Function Panel [facility] Work Phone: Start: 08-14-2013 End: 12-09-2013 Lipid panel [AGGREGATE] *Lipid Profile CC PCP [facility] Work Phone: Start: 03-17-2013 End: 03-07-2013 *Hepatic Function Panel *Hepatic Function Panel [facility] Work Phone: Start: 03-17-2013 End: 03-07-2013 Lipid panel [AGGREGATE] *Lipid Profile [facility] Work Phone: Start: 03-17-2013 End: 03-07-2013 *Hepatic Function Panel *Hepatic Function Panel [facility] Work Phone: Start: 03-17-2013 End: 03-07-2013 Lipid panel [AGGREGATE] *Lipid Profile [facility] Work Phone: Start: 03-09-2013 End: 03-09-2013 Follow Up Appt 6 months Follow Up Appt 6 months [facility] Work Phone: Start: 03-09-2013 End: 03-09-2013 MMM MMM [facility] Work Phone: Start: 03-09-2013 End: 03-09-2013 Follow Up Appt 6 months Follow Up Appt 6 months [facility] Work Phone: Start: 03-09-2013 End: 03-09-2013 MMM MMM [facility] Work Phone: Start: 09-04-2012 End: 08-27-2013 Follow Up Appt 6 months Follow Up Appt 6 months [facility] Work Phone: Start: 09-04-2012 End: 08-27-2013 Follow Up Appt 6 months Follow Up Appt 6 months [facility] Work Phone: Start: 07-28-2012 End: 07-28-2012 Follow Up Appt 6 weeks Follow Up Appt 6 weeks [facility] Work Phone: Start: 07-28-2012 End: 07-28-2012 Nuclear stress test -exercise Nuclear stress test -exercise [facility] Work Phone: Start: 07-28-2012 End: 07-28-2012 Follow Up Appt 6 weeks Follow Up Appt 6 weeks [facility] Work Phone: Start: 07-28-2012 End: 07-28-2012 Nuclear stress test -exercise Nuclear stress test -exercise [facility] Work Phone: Start: 05-07-2012 End: 01-13-2012 *Hepatic Function Panel *Hepatic Function Panel [facility] Work Phone: Start: 05-07-2012 End: 01-24-2012 Lipid panel [AGGREGATE] *Lipid Profile [facility] Work Phone: Start: 05-07-2012 End: 01-13-2012 *Hepatic Function Panel *Hepatic Function Panel [facility] Work Phone: Start: 05-07-2012 End: 01-24-2012 Lipid panel [AGGREGATE] *Lipid Profile [facility] Work Phone: Start: 03-26-2012 End: 03-26-2012 Follow Up Appt 3 months Follow Up Appt 3 months [facility] Work Phone: Start: 03-26-2012 End: 03-26-2012 Follow Up Appt 3 months Follow Up Appt 3 months [facility] Work Phone: Start: 01-24-2012 End: 01-24-2012 *BMP *BMP [facility] Work Phone: Start: 01-24-2012 End: 01-24-2012 aPTT *PTT-Partial Thromboplastin Time [facility] Work Phone: Start: 01-24-2012 End: 01-24-2012 CBC W Auto Differential panel - Blood *CBC without Diff [facility] Work Phone: Start: 01-24-2012 End: 01-24-2012 Chest x-ray X-Ray, Chest, PA & Lateral [facility] Work Phone: Start: 01-24-2012 End: 01-24-2012 Ecg routine ecg w/least 12 lds w/i&r EKG (In office) [facility] Work Phone: Start: 01-24-2012 End: 01-24-2012 Follow Up Appt 2 months Follow Up Appt 2 months [facility] Work Phone: Start: 01-24-2012 End: 01-24-2012 INR Coag RelTime (PPP) *PT/INR [facility] Work Phone: Start: 01-24-2012 End: 01-24-2012 Left Heart Cath Left Heart Cath [facility] Work Phone: Start: 01-24-2012 End: 01-24-2012 Magnesium *Magnesium [facility] Work Phone: Start: 01-24-2012 End: 01-24-2012 *BMP *BMP [facility] Work Phone: Start: 01-24-2012 End: 01-24-2012 aPTT *PTT-Partial Thromboplastin Time [facility] Work Phone: Start: 01-24-2012 End: 01-24-2012 CBC W Auto Differential panel - Blood *CBC without Diff [facility] [employer] Work Phone: Start: 01-24-2012 End: 01-24-2012 Chest x-ray X-Ray, Chest, PA & Lateral [facility] [employer] Work Phone: Start: 01-24-2012 End: 01-24-2012 Coagulation factor induced.INR assay in platelet poor plasma *PT/INR [facility] [employer] Work Phone: Start: 01-24-2012 End: 01-24-2012 Electrocardiogram, complete EKG (In office) [employer] Work Phone: Start: 01-24-2012 End: 01-24-2012 Follow Up Appt 2 months Follow Up Appt 2 months [facility] Work Phone: Start: 01-24-2012 End: 01-24-2012 Left Heart Cath Left Heart Cath [facility] [employer] Work Phone: Start: 01-24-2012 End: 01-24-2012 Magnesium *Magnesium [facility] [employer] Work Phone: Start: 01-13-2012 End: 01-13-2012 Follow Up Appt 6 months Follow Up Appt 6 months [facility] [employer] Work Phone: Start: 01-13-2012 End: 01-14-2012 Nuclear stress test -exercise Nuclear stress test -exercise [facility] [employer] Work Phone: Start: 01-13-2012 End: 01-13-2012 Follow Up Appt 6 months Follow Up Appt 6 months [facility] [employer] Work Phone: Start: 01-13-2012 End: 01-14-2012 Nuclear stress test -exercise Nuclear stress test -exercise [facility] [employer] Work Phone: Start: 10-31-2011 Provider Instructions for Treatment [facility] Work Phone: Start: 10-16-2011 Provider Instructions for Treatment [facility] Work Phone: Start: 10-11-2011 End: 11-03-2011 *Hepatic Function Panel *Hepatic Function Panel [facility] Work Phone: Start: 10-11-2011 End: 10-11-2011 Follow Up Appt 3 months Follow Up Appt 3 months [facility] Work Phone: Start: 10-11-2011 End: 11-03-2011 Lipid panel [AGGREGATE] *Lipid Profile [facility] Work Phone: Start: 10-11-2011 End: 11-03-2011 *Hepatic Function Panel *Hepatic Function Panel [facility] Work Phone: Start: 10-11-2011 End: 10-11-2011 Follow Up Appt 3 months Follow Up Appt 3 months [facility] Work Phone: Start: 10-11-2011 End: 11-03-2011 Lipid panel [AGGREGATE] *Lipid Profile [facility] Work Phone: Start: 07-19-2011 End: 07-19-2011 Follow Up Appt Other Follow Up Appt Other [facility] Work Phone: Start: 07-19-2011 End: 07-19-2011 Follow Up Appt Other Follow Up Appt Other [facility] Work Phone: Start: 05-30-2011 End: 07-11-2011 *BMP *BMP [facility] Work Phone: Start: 05-30-2011 End: 07-11-2011 *CBC with Differential *CBC with Differential [facility] Work Phone: Start: 05-30-2011 End: 07-11-2011 aPTT *PTT-Partial Thromboplastin Time [facility] Work Phone: Start: 05-30-2011 End: 05-30-2011 Follow Up Appt 6 weeks Follow Up Appt 6 weeks [facility] Work Phone: Start: 05-30-2011 End: 07-11-2011 INR Coag RelTime (PPP) *PT/INR [facility] Work Phone: Start: 05-30-2011 End: 05-30-2011 Left Heart Cath Left Heart Cath [facility] Work Phone: Start: 05-30-2011 End: 07-11-2011 Magnesium *Magnesium [facility] Work Phone: Start: 05-30-2011 End: 07-11-2011 *BMP *BMP [facility] Work Phone: Start: 05-30-2011 End: 07-11-2011 *CBC with Differential *CBC with Differential [facility] Work Phone: Start: 05-30-2011 End: 07-11-2011 aPTT *PTT-Partial Thromboplastin Time [facility] Work Phone: Start: 05-30-2011 End: 07-11-2011 Coagulation factor induced.INR assay in platelet poor plasma *PT/INR [facility] Work Phone: Start: 05-30-2011 End: 05-30-2011 Follow Up Appt 6 weeks Follow Up Appt 6 weeks [facility] Work Phone: Start: 05-30-2011 End: 05-30-2011 Left Heart Cath Left Heart Cath [facility] Work Phone: Start: 05-30-2011 End: 07-11-2011 Magnesium *Magnesium [facility] Work Phone: Start: 2002 Colon [...] Phone: Payers Date Payer Category Payer Unknown [id number] 2015 Unknown [employer] xxxxxxxxxxx 2015-Present [phone] [place] [id number] xxxxxxxxxxx [id number] 1950 Unknown [id number] Unknown [employer] Social History Date Type Detail [...] Documents on File Type Date Recorded 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 Expiration date unspecified Effective:03-Oct-2020 Name Dates Details Immunization Registry [place] - Effective on 10/03/2020. Expiration date unspecified Effective:03-Oct-2020 Reason for Referral Status Reason Specialty Diagnoses / Procedures Referre d By Contact Referred To Contact [facility] Diagnoses Abdominal aortic aneurysm (AAA) without rupture (HCC) Procedures VL Aorta IVC Bypass Graft Miguel De MD [address] [place] [address], [id number] [place] [id number] Assessments Diagnosis Abdominal aortic aneurysm (AAA) without rupture (HCC) Additional Source Comments (unrecognized sect ion and content) No Status Records FoundNo Status Records Found INFORMATION SOURCE (unrecogn ized section and content) DATE CREATED AUTHOR AUTHOR'S ORGANIZ ATION 08/31/2019 [facility] FOR RECORDS PERTAINING TO [...] BE BASED ON THE PRIMARY CLINICAL RECORDS. [facility]. provides no warranty or guarantee of the accuracy or completeness of information in this document.
--- NOTE | 2023-09-15 08:00 | MRI_ITS ---
STUDY: MRI LEFT KNEE REASON FOR EXAM: Male, 73 years old. Acute pain of left knee. TECHNIQUE: Standardized fat and water weighted pulse sequences were obtained in all 3 orthogonal planes. COMPARISON: None. FINDINGS: There is a suspected horizontal tear of the posterior body of the medial meniscus (coronal PD series 7 images 19-21). There is a curvilinear subchondral trabecular stress fracture of the weightbearing surface of the medial femoral condyle with surrounding marrow edema. There is mild degenerative arthrosis of the medial femorotibial compartment with joint space narrowing and marginal osteophyte formation. There is a minimal grade I MCL sprain with periligamentous edema. Normal distal semimembranosus, gracilis and semitendinosus tendons. Normal lateral meniscus. Normal hyaline cartilage of the lateral femorotibial compartment. Normal lateral femoral condyle and tibial plateau. Normal proximal tibiofibular articulation. Normal lateral collateral ( fibular ) ligament. Normal popliteus tendon. Normal biceps femoris tendon. Normal anterior cruciate ligament (ACL). Normal posterior cruciate ligament (PCL). There is low-grade chondromalacia patellae. Congruent patellofemoral articulation. Normal medial and lateral patellar retinaculum. Normal quadriceps tendon. Normal patellar tendon. Normal Hoffa''s fat pad. There is a moderate volume joint effusion. There is no significant popliteal cyst. There is mild subcutaneous soft tissue edema along the medial aspect of the knee. MRI/Lower Ext Joint Only (Routine) IMPRESSION: Suspected horizontal tear of the posterior body of the medial meniscus. Curvilinear subchondral trabecular stress fracture of the weightbearing surface of the medial femoral condyle with surrounding marrow edema. Mild degenerative arthrosis of the medial femorotibial compartment with joint space narrowing and marginal osteophyte formation. Minimal grade I MCL sprain. Low-grade chondromalacia patellae. Moderate joint effusion. Mild subcutaneous soft tissue edema along the medial aspect of the knee. Electronically Signed: Edison Guillaume MD at 12:31 EST ,
== END | disposition home or self-care (01) ==
LOC: MRI 07:36
PROVIDERS: PCP Internal Medicine; Referring Provider Internal Medicine; Visit Provider Internal Medicine
DX: M25.562 Pain in left knee (principal)
CPT/HCPCS: 73721

== ENCOUNTER → 2023-09-16 | Outpatient (CLI) | payer MEDICARE, OTHER, SELFPAY ==
--- OUTSIDE RECORDS SUMMARY | 2023-09-16 06:09 | XMS RPT_ITS | CCD ---
Author Name Unknown Address [address] [place] [address] Organization [facility] Care Team Providers Care Director Of Workforce Development Name Role Phone Susan Pizano Unavailable Unavailable Jeremías Mccray Unavailable Unavailable ALYSA Dunbar, Lisa Ospina Unavailable Susan Pizano Unavailable Unavailable Terri Arguello Unavailable [facility], [facility] Unavailable Ifrah Enriquez Unavailable Unavailable Unavailable Unavailable Unavailable Unavailable Terri Arguello Attending Unavailable Terri Arguello Consulting Unavailable Terri Arguello Primary Care Provider [phone] Ifrah Enriquez Unavailable Unavailable Mikel Malloy Unavailable Unavailable Terri Arguello DO Unavailable [facility], [facility] Unavailable Mikel Malloy LPN Unavailable Unavailable Unavailable Unavailable Allergies Allergy Classification Reported Allergen(s) Allergy Type Date of Onset Reaction(s) Facility (4 sources) clopidogrel drug allergy 1 Rash [facility] Work Phone: (12 sources) clopidogrel; [...] Coronary arteriosclerosis; Translations: [Atherosclerotic heart disease of [place] coronary artery without angina pectoris] Onset: 12-24-2010 [...] 09-05-2014 Episodic Other aftercare (1 source) Other emt intermediate (current) drug therapy; Translations: [Other care home (current) drug therapy] Onset: 02-01-2011 02-01-2011 Episodic [...] Results Test Name Value Interpretation Reference Range [facility] Vital Signs Date Time Vital Sign Value Performing Clinician Facility 05-01-2020 08:46-0400 BMI (Body Mass Index) 31.02 kg/m2 Mikel Malloy LPN [facility] Work Phone: 05-01-2020 08:46-0400 Body weight 96.67 kg Mikel Malloy LPN [facility] Work Phone: 05-01-2020 08:46-0400 BSA (Body Surface Area) 2.13 m2 Mikel Malloy LPN [facility] Work Phone: 05-01-2020 08:46-0400 Height 176.53 cm Mikel Malloy LPN [facility] Work Phone: 09-24-2018 12:33-0400 BMI (Body Mass Index) 31.02 kg/m2 Ifrah Enriquez RN [facility] Work Phone: 09-24-2018 12:33-0400 Body [...] Duplex scan Procedure Note: See Note; NOTES: [facility] [address] [place] [address] Abd Aortic/IVC Duplex scan 02/27/22 0812 MR#: [id number] Acct: [id number] Name: CHRIS PEDRAZA Rep #: [id number] : 1950 71 From: Christopher Leary MD Attending Dr: Dr. Christopher Leary MD Status: DE P CLI Ordering Dr: Christopher Leary MD Date: 02/27/22 Location: [facility] Sex: M C Admitted: [id number] VL AAVD Abd Aortic/IVC Duplex scan [id number] Reason For Study: AAA Repair Aorta Measurements [...] DO Date Dictated: 02/27/22811 Date Transcribed: 03/06/22818 Sanitary Chemist: Kylah Arguello DO Work Phone: Start: 02-27-2022 End: 03-06-2022 Ankle Brachial Index Procedure Note: See Note; NOTES: [facility] [address] [place], [place] [address]lloyd [place] [address] Ankle Brachial Index 02/27/22 08 MR#: [id number] Acct: [id number] Name: CHRIS PEDRAZA Rep #: [id number] : 1950 71 From: Christopher Leary MD Attending Dr: Dr. Christopher Leary MD Status: DE P CLI Ordering Dr: Christopher Leary MD Date: 02/27/22 Location: [facility] Sex: M C Admitted: [id number] VL ANGELA Ankle Brachial Index [id number] Reason For Study: AAA Repair Procedure A [...] DO Date Dictated: 02/27/22805 Date Transcribed: 03/06/22818 Sanitary Chemist: Signed Terri Arguello DO Work Phone: Start: 02-22-2022 End: 02-22-2022 Cardiology Visit Report Procedure Note: See Note; NOTES: [facility] [address] [place] [address] OFFICE VISIT Date of Service: 02/22/22 MR#: [id number] Acct: [id number] Name: CHRIS PEDRAZA Rep #: [id number] : 1950 Provider: Dr. Shawn Falcon MD Age/Sex: 71/M Location: [facility] Status: Signed HPI HPI History of [...] following up with a vascular surgeon in [place]. He is scheduled to have an abdominal [...] aortic aneurysm (AAA) Atherosclerotic heart disease of [place] coronary artery without angina pectoris Bladder cancer [...] coronary artery stent placement: Status: Chronic Comment: YVQ-AFB-Duxp-Mid LCx w/ 2.5 x 28 mm Promus Stent and KECIA-Prox LCx w/ 2.5 x 12 mm Promus 10/31/2010; QJQ-MSH-Ddfbhc LCx w/ 2.25 x 18 mm Promus Stent and KECIA-Distal RCA w/ 3.0 x 23 mm and 3.0 x 8 mm Promus Stent 06/04/2011; RXH-AIZ-JLE-Prox-Mid LCx w/ 2.75 x 23 mm Promus Stent and QAT-MPY-Rtvz LCx w/ 3.0 x 23 mm Promus [...] Cardiology Visit Report Comments: See Note; NOTES: [facility] [address] [place] [address] OFFICE VISIT Date of Service: 03/02/21 MR#: [id number] Acct: [id number] Name: CHRIS PEDRAZA Rep #: [id number] : 1950 Provider: LAMIN ferris Age/Sex: 70/M Location: [facility] Status: Signed HPI HPI History of [...] following up with a vascular surgeon in [place]. You do remember that he exercised to [...] 94 Intake Visit Reasons: 1 Y FU Fios Line Installer Required: No Accompanied by: None Is patient [...] aortic aneurysm (AAA) Atherosclerotic heart disease of [place] coronary artery without angina pectoris Back pain [...] and Plan (1) Atherosclerotic heart disease of [place] coronary artery without angina pectoris: Status: Chronic Qualifiers: [place] vs. transplanted heart: [place] heart Qualified Code(s): I25.10 - Atherosclerotic heart disease of [place] coronary artery without angina pectoris Orders: Orders: Lipid Profile Today Liver Profile Today Plan - Miguel Michelle HARNESS PULLER, HARNESS PULLER-C: His last stress test in October 2018 [...] Liver Profile Today Plan - Miguel Michelle HARNESS PULLER, HARNESS PULLER-C: He will continue current medical therapy which includes aspirin, atorvastatin, lisinopril, and metoprolol tartrate. We will continue to monitor. (3) Abdominal aortic aneurysm (AAA): Status: Chronic Comment: Endovascular AAA repair 12/2010 Plan - Miguel Michelle HARNESS PULLER, HARNESS PULLER-C: His most recent office visit with vascular [...] hypertension: Status: Chronic Plan - Miguel Michelle HARNESS PULLER, HARNESS PULLER-C: Patient's blood pressure is well-controlled. We will continue to monitor. We will not make any medication regimen changes. (5) Hyperlipidemia: Status: Chronic Qualifiers: Hyperlipidemia type: pure hypercholesterolemia Qualified Code(s): E78.00 - Pure hypercholesterolemia, unspecified; E78.0 - Pure hypercholesterolemia Orders: Orders: Lipid Profile Today Liver Profile Today Shannan - Miguel Michelle HARNESS PULLER, HARNESS PULLER-C: He was asked to undergo repeat lipid and liver panel at his earliest convenience in a fasting state. He will continue with atorvastatin 40 mg p.o. daily in the interim. Based on results of laboratory testing, further recommendation will be made. Plan Details Follow Up: Dr. Leary Office Note 12 Months (AIRCRAFT LAUNCH AND RECOVERY TECHNICIAN) Coding Level of Care Code Off vis,est,level 3 Diagnoses Atherosclerotic heart disease of [place] coronary artery without angina pectoris I25.10 [place] vs. transplanted heart: [place] heart History of coronary artery stent placement Z95.5 Abdominal aortic aneurysm (AAA) I71.4 Essential (primary) hypertension I10 Hyperlipidemia E78.00; E78.0 Hyperlipidemia type: pure hypercholesterolemia Coding Level of Care Code Off vis,est,level 3 Diagnoses Atherosclerotic heart disease of [place] coronary artery without angina pectoris I25.10 [place] vs. transplanted heart: [place] heart History of coronary artery stent placement [...] Ankle Brachial Index Comments: See Note; NOTES: [facility] [address] [place] [address]. [place] [address] Ankle Brachial Index 01/30/21 0802 MR#: [id number] Acct: [id number] Name: CHRIS PEDRAZA Rep #: [id number] : 1950 70 From: Christopher Leary MD Attending Dr: Dr. Christopher Leary MD Status: RE G CLI Ordering Dr: Christopher Leary MD Date: 01/30/21 Location: [facility] Sex: M C Admitted: Reason For Study: [...] Date Dictated: 01/30/21801 Date Transcribed: 01/30/21 1004 Sanitary Chemist: Signed Terri Arguello DO Work Phone: Start: 01-30-2021 End: 01-30-2021 Abd Aortic/IVC Duplex scan Comments: See Note; NOTES: [facility] [address] [place] [address] Abd Aortic/IVC Duplex scan 01/30/21815 MR#: [id number] Acct: [id number] Name: CHRIS PEDRAZA Rep #: [id number] : 1950 70 From: Christopher Leary MD Attending Dr: Dr. Christopher Leary MD Status: G CLI Ordering Dr: Christopher Leary MD Date: 01/30/21 Location: [facility] Sex: M C Admitted: Reason For Study: [...] Aorta IVC Iliac vasculature or bypass grafts [address]. The exam was diagnostic. Exam performed in department. VL/Abd Aortic/IVC Duplex scan Interpretation Summary No evidence of aortic iliac aneurysm or stenosis. _ Ordering Physician: Christopher Leary Performed By: Danny Veloz RVT and Student 01/30/21 1004 Date Christopher Leary MD CC: Dr. Christopher Leary MD; Dr. Terri Arguello, Date Dictated: 01/30/2116 Date Transcribed: 01/30/21 1004 Sanitary Chemist: Signed Terri Arguello DO Work Phone: Start: 03-08-2020 End: 03-08-2020 Operative Report Comments: See Note; NOTES: [facility] Medical Records Department [address] [place] [address] Operative Report 03/08/20 1144 MR#: [id number] Acct: [id number] Name: CHRIS PEDRAZA Rep #: [id number] : 1950 70 From: Derrek Gann MD PCP: Dr. Terri Arguello DO Status:[facility] SDC Y Location: [place] [address] Report of Operation Date of Procedure: 03/08/20 [...] went in the bladder with a 21 Nauruan rigid cystourethroscope, the entire bladder was clear [...] 03-08-2020 Discharge Instruction Comments: See Note; NOTES: [facility] Medical Records Department [address] [place] [address] Instructions for Home/Discharge Instructions 03/08/20 1127 MR#: [id number] Acct: [id number] Name: PEDRAZACHRIS Rep #: [id number] : 1950 70 From: Derrek Gann MD PCP: Dr. Terri Arguello DO Status:REG [facility] Discharge Diet: Light diet [...] BID #6 tab 03/08/20 Hydrocodone Bitart/Apap 5-325 [Roy 5MG-325MG] 1 tablet PO Q4H PRN PRN 5 Days #14 tablet 03/08/20 The following prescriptions were given: Ciprofloxacin [Cipro] 500 mg PO BID #6 tab Transmission Status: Pending to [facility]/pharmacy #[id number] Hydrocodone Bitart/Apap 5-325 [Roy 5MG-325MG] 1 tablet PO Q4H PRN PRN 5 Days #14 tablet PRN Reason: Pain Transmission Status: Received by [facility]/pharmacy #[id number] Primary Care Physician: Terri Arguello DO [...] and Physical Exam Comments: See Note; NOTES: [facility] Medical Records Department [address] [place] [address] History and Physical 03/08/20 1124 MR#: [id number] Acct: [id number] Name: CHRIS PEDRAZA Rep #: [id number] : 1950 70 From: Derrek Gann MD PCP: Dr. Terri Arguello, DO Status:REG SDC Y Location: [place] [address] History of Present Illness Date of Admission: [...] AAA repair 12/2010 Atherosclerotic heart disease of [place] coronary artery without angina pectoris (Chronic) History [...] AAA repair 12/2010 Atherosclerotic heart disease of [place] coronary artery without angina pectoris (Chronic) I25.10 [...] 12 Lead EKG Comments: See Note; NOTES: [facility] Services [address] [place] [address] 12 Lead EKG 03/01/20 0620 MR#: [id number] Acct: [id number] Name: CHRIS PEDRAZA Rep #: [id number] : 1950 69 From: Lopez Mckeon MD Attending Dr: Dr. Derrek Gann MD Status: PRE TXC Ordering Dr: Tom Vo MD Date: 03/01/20 Location: [facility] Sex: M C Admitted: [...] Abnormal ECG Confirmed by LOPEZ MCKEON ([id number]), field map editor BRIGETTE MORALES ([id number]) on 03/06/2020 9:47:51 AM Referred By: Derrek Gann Confirmed By:LOPEZ MCKEON 03/06/20 0947 Date Lopez Mckeon MD CC: Dr. Tom Vo MD; Dr. Derrek Gann MD; Dr. Terri Arguello DO Signed Terri Arguello Start: 02-24-2020 End: 02-24-2020 Cardiology Visit Report Comments: See Note; NOTES: [facility] [address] [place] [address] OFFICE VISIT Date of Service: 02/24/20 MR#: [id number] Acct: [id number] Name: CHRIS PEDRAZA Rep #: [id number] : 1950 Provider: Dr. Shawn Falcon MD Age/Sex: 69/M Location: [facility] Status: Signed HPI HPI History of [...] following up with a vascular surgeon in [place]. He returns for routine follow-up visit he [...] BID #180 tab 02/16/20 [Rx Confirmed 02/24/20] [facility] Medical History Abdominal aortic aneurysm (AAA) (Chronic) Atherosclerotic heart disease of [place] coronary artery without angina pectoris (Chronic) Essential [...] follow-up with the vascular surgeon here in [place]. This will be arranged for him. 4. [...] surgery. Plan Detail 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 ([facility]) Coding Level of Care Code [...] Care Visit Report Comments: See Note; NOTES: [facility] [address] [place] [address] OFFICE VISIT Date of Service: 06/16/19 MR#: [id number] Acct: [id number] Name: PEDRAZACHRIS GARCIA Liliana Rep #: [id number] : 1950 Provider: Agusto VU Age/Sex: 69/M Location: [facility] Status: Signed Intake Vital Signs06/16/19 Body Mass Index (BMI) 31.7 06/16/19 Height 5 ft 8.5 in Intake Visit Reasons: Left shoulder, [employer] Chief Complaint: Left shoulder injury Allergies [...] DAILY #90 tab 05/17/19 [Rx Confirmed 06/16/19] [facility] Medical History (Updated 06/16/19 @ 16:01 by Ariane Thomas) History of myocardial infarction (Chronic) Atherosclerotic heart disease of [place] coronary artery without angina pectoris (Chronic) Hyperlipidemia (Chronic) terminal make up operator use of drug (Chronic) Hypertension (Chronic) Back [...] notes finally having his initial evaluation at [facility]'s emergency department where radiographs revealed no acute [...] the above. This note was generated with [employer] dictation software. 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 He states he was on a ladder [...] Medical History (1) Atherosclerotic heart disease of [place] coronary artery without angina pectoris Status: Chronic (2) History of myocardial infarction Status: Chronic Comment: 10/22 (3) Hyperlipidemia Status: Chronic (4) Hypertension Status: Chronic (5) terminal make up operator use of drug Status: Chronic Past Medical [...] your Primary Care Provider. Call [facility] ([phone]) or report to the closest Emergency Room. Call 911 if necessary. 06/11/19 1419 <Electronically signed by Javier Carnes MD> Date Javier Carnes MD Cosigner Signature (If Indicated): Date CC: Care Corporate; Terri Alexander Start: 10-21-2018 End: 10-21-2018 Stress Report Comments: See Note; NOTES: [facility] Cardiovascular Services [address] [place] [address] MR#: [id number] Acct: [id number] Name: CHRIS PEDRAZA Rep #: [id number] : 1950 68 From: Shawn Falcon MD [...] DO Date Dictated: 10/21/1834 Date Transcribed: 10/21/18833 Sanitary Chemist: [place] Signed Terri Arguello Start: 10-08-2018 End: 10-08-2018 Cardiology Visit Report Comments: See Note; NOTES: [facility] [address] [place] [address] OFFICE VISIT Date of Service: 10/08/18 MR#: [id number] Acct: [id number] Name: CHRIS PEDRAZA Rep #: [id number] : 1950 Provider: Shawn Falcon MD Age/Sex: 68/M Location: [facility] Status: Signed HPI HPI Details: CHRIS [...] brachial Intake Visit Reasons: 1 Y FU Fios Line Installer Required: No Accompanied by: none Is patient [...] DAILY #90 tab 04/21/18 [Rx Confirmed 10/08/18] [facility] Medical History History of myocardial infarction (Chronic) Atherosclerotic heart disease of [place] coronary artery without angina pectoris (Chronic) Hyperlipidemia (Chronic) detention use of drug (Chronic) Hypertension (Chronic) Dizziness [...] PTCA/stent of distal LCx AND distal RCA; [facility] 06/04/11 with subsequent PCI to mid [...] Orders: Plan Detail 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 (photo colorer) Coding Level of Care Code Off vis,est,level [...] or 3 Views Comments: See Note; NOTES: [facility] Imaging Services [address] [place] [address] Lumbar Spine 2 or 3 Views MR#: [id number] Acct: [id number] Name: PEDRZAACHRIS L Rep #: [id number] : 1950 68 From: Ian Narayanan MD PCP: Terri Arguello DO Status: REG CLI Study: Lumbar Spine 2 or 3 Views Date of Exam: 09/25/18 Exam# [id number] Ordering Dr: Terri Arguello DO STUDY: X-RAY [...] Service support , CC: Terri Arguello DO Sanitary Chemist: Signed Terri Arguello Work Phone: Start: 09-25-2018 End: 09-26-2018 Shoulder min 2 Views Comments: See Note; NOTES: [facility] Imaging Services [address] [place] [address] Shoulder min 2 Views MR#: [id number] Acct: [id number] Name: CHRIS PEDRAZA Rep #: [id number] : 1950 M 68 From: Hood Ladd MD PCP: Terri Arguello DO Status: REG CLI Study: Shoulder min 2 Views Date of Exam: 09/25/18 Exam# [id number] Ordering Dr: Terri Arguello DO STUDY: X-RAY [...] min 2 Views CC: Terri Arguello DO Sanitary Chemist: Signed Terri Arguello Work Phone: Start: 10-07-2017 End: 10-07-2017 Cardiology Visit Report Comments: See Note; NOTES: [facility] [address] [place] [address] OFFICE VISIT Date of Service: 10/07/17 MR#: [id number] Acct: [id number] Name: CHRIS PEDRAZA Rep #: [id number] : 1950 Provider: Shawn Falcon MD Age/Sex: 67/M Location: [facility] Status: Signed HPI HPI Chief Complaint: [...] myocardial infarction (Chronic) Atherosclerotic heart disease of [place] coronary artery without angina pectoris (Chronic) Hyperlipidemia (Chronic) terminal make up operator use of drug (Chronic) Hypertension (Chronic) Dizziness [...] affect Assessment AND Plan 1. Atherosclerosis of [place] coronary artery of [place] heart without angina pectoris I25.10 Plan He [...] Other Medications New: 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 (photo colorer) Coding Level of Care Code Off vis,est,level 3 Diagnoses Atherosclerosis of [place] coronary artery of [place] heart without angina pectoris I25.10 [place] vs. transplanted heart: [place] heart Essential hypertension I10 Hypertension type: essential hypertension Pure hypercholesterolemia E78.00; E78.0 Hyperlipidemia type: pure hypercholesterolemia Coding Level of Care Code Off vis,est,level 3 Diagnoses Atherosclerosis of [place] coronary artery of [place] heart without angina pectoris I25.10 [place] vs. transplanted heart: [place] heart Essential hypertension I10 Hypertension type: essential [...] Shawn Falcon MD Start: 09-24-2016 End: 09-24-2016 [facility] Shawn Falcon MD Start: 07-27-2016 End: 07-27-2016 Discharge Instruction Comments: See Note; NOTES: [facility] Medical Records Department [address] [place] [address] Instructions for Home/Discharge Instructions 07/27/16 0914 MR#: [id number] Acct: [id number] Name: CHRIS PEDRAZA Liliana Rep #: [id number] : 1950 66 From: Yaakov uRiz MD PCP: Terri Arguello DO Status: REG [facility] Discharge Diet: No Restrictions [...] Please Follow Up With: Yaakov Ruiz - [phone] When: CALL SOON FOR FOLLOW UP APPT FOR 2-3 WKS 07/27/16 0917 <Electronically signed by Yaakov Ruiz MD> Date Yaakov Ruiz MD CC: Terri Alexander Start: 07-27-2016 End: 07-27-2016 Operative Report Comments: See Note; NOTES: [facility] Medical Records Department [address] [place] [address] Operative Report MR#: [id number] Acct: [id number] Name: CHRIS PEDRAZA Rep #: [id number] : 1950 66 From: Yaakov uRiz MD PCP: Terri Arguello DO Status: [facility] DATE OF SERVICE: 07/26/2016 DATE OF [...] unable to induce any bleeding and an 18-Nauruan catheter was placed to drainage. The patient was then taken to recovery in stable condition. Yaakov Ruiz MD T: NTS JOB: [id number] 07/27/16 0851 <Electronically signed by Yaakov Ruiz MD> Date Yaakov Ruiz MD Cosigner Signature (If Indicated): Date CC: Terri Arguello DO; Yaakov Ruiz MD Date Dictated: 07/26/16 1147 Date Transcribed: 07/26/161146 Sanitary Chemist: Signed Terri Arguello Start: 07-26-2016 End: 07-26-2016 12 lead ECG Comments: See Note; NOTES: [facility] Cardi[facility] Services [address] [place] [address] EKG - SDC 07/24/16837 MR#: [id number] Acct: [id number] Name: CHRIS PEDRAZA Rep #: [id number] : 1950 66 From: Lopez Mckeon MD Attending Dr: Yaakov Ruiz MD Status: REG [facility] Ordering Dr: Emmett Martinez [...] bradycardia Abnormal ECG Confirmed by LOPEZ MCKEON ([id number]), field map editor YOSSI MEYER ([id number]) on 07/26/2016 3:10:11 PM Referred By: BAKARI CLARKE Confirmed By:LOPEZ MCKEON 07/26/16 1510 Date Lopez Mckeon MD CC: Lopez Mckeon MD; Terri Arguello DO Date Dictated: 07/24/16837 Date Transcribed: 07/24/16837 Sanitary Chemist: Signed Terri Arguello Work Phone: Start: 03-19-2016 [...] Shawn Falcon MD Start: 10-18-2014 End: 10-18-2014 AIRCRAFT LAUNCH AND RECOVERY TECHNICIAN Lisa Dunbar PA-C Work Phone: Start: 10-18-2014 End: 10-19-2014 Documentation of current medications Lisa Dunbar PA-C Work Phone: Start: 10-18-2014 End: 10-18-2014 Follow Up Appt 6 months Lisa Dunbar PA-C Work Phone: Start: 10-18-2014 End: 10-18-2014 AIRCRAFT LAUNCH AND RECOVERY TECHNICIAN Lisa Dunbar PA-C Work Phone: Start: 10-18-2014 End: 10-19-2014 Documentation of current medications Lisa Dunbar PA-C Work Phone: Start: 10-18-2014 End: 10-18-2014 Follow Up Appt 6 months Lisa Dunbar PA-C Work Phone: Start: 09-14-2014 End: 09-16-2014 Nuclear Stress Test - Treadmil Comments: See Note; NOTES: [facility] Imaging Services [address] [place] [address] Nuclear Medicine Report MR#: [id number] Acct: [id number] Name: CHRIS PEDRAZA Rep #: [id number] : 1950 M 64 From: Shawn Falcon MD PCP: Terri Arguello DO Status: [facility] Study: Nuclear Stress Test - Treadmms Date of Exam: 09/14/14 Exam# [id number] Ordering Dr: Lisa Arana EXERCISE MYOCARDIAL PERFUSION [...] infarct. CC: Terri Arguello DO; Lisa Arana Sanitary Chemist: ZAMORA Kylah Arguello Start: 09-05-2014 End: 09-13-2014 *CBC with Differential Lisa Dunbar PA-C Work Phone: Start: 09-05-2014 End: 09-13-2014 *CMP Complete Metabolic Panel Lisa Dunbar PA-C Work Phone: Start: 09-05-2014 End: 09-05-2014 AIRCRAFT LAUNCH AND RECOVERY TECHNICIAN Lisa Dunbar PA-C Work Phone: Start: 09-05-2014 [...] PA-C Work Phone: Start: 09-05-2014 End: 09-05-2014 AIRCRAFT LAUNCH AND RECOVERY TECHNICIAN Lisa Dunbar PA-C Work Phone: Start: 09-05-2014 [...] Work Phone: Start: 09-09-2013 End: 09-09-2013 BEAU uDnbar PA-C Work Phone: Start: 09-09-2013 End: 09-09-2013 [...] 05-30-2011 Follow Up Appt 6 weeks Scott eRy MD Start: 05-30-2011 End: 07-11-2011 INR in [...] Author Start: 05-01-2020 Procedure Education Eprescribed prescriptions (G1879) [facility] Work Phone: Start: 05-01-2020 Iaadi[place]oo influenza 2019 Novel Coronavirus (COVID-19), JUVE ([id number]) [facility] Work Phone: Start: 03-14-2019 Influenza vaccination Flu vaccine (#1) [facility] Work Phone: Start: 11-28-2017 End: 06-02-2017 *Hepatic Function Panel *Hepatic Function Panel [facility] Work Phone: Start: 11-28-2017 End: 06-02-2017 Lipid panel [AGGREGATE] *Lipid Profile CC PCP [facility] Work Phone: Start: 10-07-2017 End: 10-07-2017 Appointment Appointment [facility] Work Phone: Start: 03-28-2017 End: 05-30-2017 *Hepatic Function Panel *Hepatic Function Panel [facility] Work Phone: Start: 03-28-2017 End: 03-28-2017 [employer] RECOVERY TECHNICIAN [employer] RECOV[employer] TECHNICIAN [facility] Work Phone: Start: 03-28-2017 End: 03-28-2017 Follow Up Appt 6 months Follow Up Appt 6 months [facility] Work Phone: Start: 03-28-2017 End: 05-30-2017 Lipid panel [AGGREGATE] *Lipid Profile CC PCP [facility] Work Phone: Start: 03-28-2017 End: 03-28-2017 *Hepatic Function Panel *Hepatic Function Panel [facility] Work Phone: Start: 03-28-2017 End: 03-28-2017 AIRCRAFT LA[employer]CH AND RECOVERY TECHNICIAN [employer] RECOV[employer] TECHNICIAN [facility] Work Phone: Start: 03-28-2017 End: 03-28-2017 Follow Up Appt 6 months Follow Up Appt 6 months [facility] Work Phone: Start: 03-28-2017 End: 03-28-2017 Lipid panel [AGGREGATE] *Lipid Profile CC PCP [facility] Work Phone: Start: 2017 Pneumococcal 65+ years Vaccine (1 of 1 - PPSV23) Pneumococcal 65+ years Vaccine (1 of 1 - PPSV23) [facility] Work Phone: Start: 01-21-2017 End: 03-28-2017 *Hepatic Function Panel *Hepatic Function Panel [facility] Work Phone: Start: 01-21-2017 End: 03-28-2017 Lipid panel [AGGREGATE] *Lipid Profile CC PCP [facility] Work Phone: Start: 01-21-2017 End: 03-28-2017 *Hepatic Function Panel *Hepatic Function Panel [facility] Work Phone: Start: 01-21-2017 End: 03-28-2017 Lipid panel [AGGREGATE] *Lipid Profile CC PCP [facility] Work Phone: Start: 09-24-2016 End: 09-24-2016 Follow Up Appt 6 months Follow Up Appt 6 months [facility] Work Phone: Start: 09-24-2016 End: 09-24-2016 MMM MMM [facility] Work Phone: Start: 09-24-2016 End: 09-24-2016 Follow Up Appt 6 months Follow Up Appt 6 months [facility] Work Phone: Start: 09-24-2016 End: 09-24-2016 MMM MM [facility] Work Phone: Start: 03-19-2016 End: 03-18-2017 *Hepatic Function Panel *Hepatic Function Panel [facility] Work Phone: Start: 03-19-2016 End: 03-19-2016 Follow Up Appt 6 months Follow Up Appt 6 months [facility] Work Phone: Start: 03-19-2016 End: 07-24-2016 Lipid panel [AGGREGATE] *Lipid Profile CC PCP [facility] Work Phone: Start: 03-19-2016 End: 03-19-2016 MMM MMM [facility] Work Phone: Start: 03-19-2016 End: 03-18-2017 *Hepatic Function Panel *Hepatic Function Panel [facility] Work Phone: Start: 03-19-2016 End: 03-19-2016 Follow Up Appt 6 months Follow Up Appt 6 months [facility] Work Phone: Start: 03-19-2016 End: 07-24-2016 Lipid panel [AGGREGATE] *Lipid Profile CC PCP [facility] Work Phone: Start: 03-19-2016 End: 03-19-2016 MMM MMM [facility] Work Phone: Start: 09-15-2015 End: 09-15-2015 [employer]FT [employer] 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 TECHNICIAN [employer] RECOV[employer] TECHNICIAN [facility] Work Phone: Start: 09-15-2015 End: 09-15-2015 Follow Up Appt 6 months Follow Up Appt 6 months [facility] Work Phone: Start: 09-15-2015 End: 09-15-2015 [employer]FT [employer] RECOVERY TECHNICIAN [employer] RECOVERY TECHNICIAN [facility] Work Phone: Start: 09-15-2015 [...] Lipid panel [AGGREGATE] *Lipid Profile CC PCP [facility] Work Phone: Start: 03-17-2015 End: 03-17-2015 MMM MMM [facility] Work Phone: Start: 03-17-2015 End: 03-17-2015 Follow Up Appt 6 months Follow Up Appt 6 months [facility] Work Phone: Start: 03-17-2015 End: 03-17-2015 MMM MMM [facility] Work Phone: Start: 03-16-2015 End: [...] Group Work Phone: Start: 10-18-2014 End: 10-18-2014 [employer]FT [employer] RECOVERY TECHNICIAN [employer] RECOVERY TECHNICIAN [facility] Work Phone: Start: 10-18-2014 End: 10-18-2014 Follow Up Appt 6 months Follow Up Appt 6 months [facility] Work Phone: Start: 10-18-2014 End: 10-18-2014 [employer]FT [employer] RECOVERY TECHNICIAN [employer] RECOVERY TECHNICIAN [facility] Work Phone: Start: 10-18-2014 End: 10-18-2014 Follow Up Appt 6 months Follow Up Appt 6 months [facility] Work Phone: Start: 09-05-2014 End: 09-13-2014 *CBC with Differential *CBC with Differential [facility] Work Phone: Start: 09-05-2014 End: 09-13-2014 *CMP Complete Metabolic Panel *CMP Complete Metabolic Panel [facility] Work Phone: Start: 09-05-2014 End: 09-05-2014 AIRCRAFT LA[employer]CH [employer] RECOVERY TECHNICIAN [employer] RECOVERY TECHNICIAN [facility] Work Phone: Start: 09-05-2014 End: 09-05-2014 Follow Up Appt 6 months Follow Up Appt 6 months [facility] Work Phone: Start: 09-05-2014 End: 09-13-2014 Lipid panel [AGGREGATE] *Lipid Profile CC PCP [facility] Work Phone: Start: 09-05-2014 End: 09-05-2014 Nuclear stress test -exercise Nuclear stress test -exercise [facility] Work Phone: Start: 09-05-2014 End: 09-13-2014 *CBC with Differential *CBC with Differential [facility] Work Phone: Start: 09-05-2014 End: 09-13-2014 *CMP Complete Metabolic Panel *CMP Complete Metabolic Panel [facility] Work Phone: Start: 09-05-2014 End: 09-05-2014 [employer]FT [employer] RECOVERY TECHNICIAN [employer] RECOVERY TECHNICIAN [facility] Work Phone: Start: 09-05-2014 End: 09-05-2014 Follow Up Appt 6 months Follow Up Appt 6 months [facility] Work Phone: Start: 09-05-2014 End: 09-13-2014 Lipid panel [AGGREGATE] *Lipid Profile CC PCP [facility] Work Phone: Start: 09-05-2014 End: 09-05-2014 Nuclear stress test -exercise Nuclear stress test -exercise [facility] Work Phone: Start: 05-14-2014 End: 09-05-2014 *Hepatic Function Panel *Hepatic Function Panel [facility] Work Phone: Start: 05-14-2014 End: 09-05-2014 Lipid panel [AGGREGATE] *Lipid Profile CC PCP [facility] Work Phone: Start: 05-14-2014 End: 09-05-2014 *Hepatic Function Panel *Hepatic Function Panel [facility] Work Phone: Start: 05-14-2014 End: 09-05-2014 Lipid panel [AGGREGATE] *Lipid Profile CC PCP [facility] Work Phone: Start: 05-12-2014 Provider Instructions for Treatment *Otitis Externa Education [facility] Work Phone: Start: 03-04-2014 End: 03-04-2014 Ecg routine ecg w/least 12 lds w/i&r EKG (In office) [facility] Work Phone: Start: 03-04-2014 End: 03-04-2014 Follow Up Appt 6 months Follow Up Appt 6 months [facility] Work Phone: Start: 03-04-2014 End: 03-04-2014 MMM MMM [facility] Work Phone: Start: 03-04-2014 End: 03-04-2014 Electrocardiogram, complete EKG (In office) [facility] Work Phone: Start: 03-04-2014 End: 03-04-2014 Follow Up Appt 6 months Follow Up Appt 6 months [facility] Work Phone: Start: 03-04-2014 End: 03-04-2014 MMM MMM [facility] Work Phone: Start: 09-09-2013 End: 09-09-2013 [employer]FT LA[employer] AND RECOVERY TECHNICIAN [employer] RECOVERY TECHNICIAN [facility] Work Phone: Start: 09-09-2013 End: 09-09-2013 Follow Up Appt 6 months Follow Up Appt 6 months [facility] Work Phone: Start: 09-09-2013 End: 09-09-2013 AIRCRAFT LA[employer]CH AND RECOVERY TECHNICIAN [employer] RECOVERY TECHNICIAN [facility] Work Phone: Start: 09-09-2013 End: 09-09-2013 Follow Up Appt 6 months Follow Up Appt 6 months [facility] Work Phone: Start: 08-14-2013 End: 12-09-2013 *Hepatic Function Panel *Hepatic Function Panel [facility] Work Phone: Start: 08-14-2013 End: 12-09-2013 Lipid panel [AGGREGATE] *Lipid Profile CC PCP [facility] Work Phone: Start: 08-14-2013 End: 12-09-2013 *Hepatic Function Panel *Hepatic Function Panel [facility] Work Phone: Start: 08-14-2013 End: 12-09-2013 Lipid panel [AGGREGATE] *Lipid Profile CC PCP [facility] Work Phone: Start: 03-17-2013 End: 03-07-2013 *Hepatic Function Panel *Hepatic Function Panel [facility] Work Phone: Start: 03-17-2013 End: 03-07-2013 Lipid panel [AGGREGATE] *Lipid Profile [facility] Work Phone: Start: 03-17-2013 End: 03-07-2013 *Hepatic Function Panel *Hepatic Function Panel [facility] Work Phone: Start: 03-17-2013 End: 03-07-2013 Lipid panel [AGGREGATE] *Lipid Profile [facility] Work Phone: Start: 03-09-2013 End: 03-09-2013 Follow Up Appt 6 months Follow Up Appt 6 months [facility] Work Phone: Start: 03-09-2013 End: 03-09-2013 MMM MMM [facility] Work Phone: Start: 03-09-2013 End: 03-09-2013 Follow Up Appt 6 months Follow Up Appt 6 months [facility] Work Phone: Start: 03-09-2013 End: 03-09-2013 MMM MMM [facility] Work Phone: Start: 09-04-2012 End: 08-27-2013 Follow Up Appt 6 months Follow Up Appt 6 months [facility] Work Phone: Start: 09-04-2012 End: 08-27-2013 Follow Up Appt 6 months Follow Up Appt 6 months [facility] Work Phone: Start: 07-28-2012 End: 07-28-2012 Follow Up Appt 6 weeks Follow Up Appt 6 weeks [facility] Work Phone: Start: 07-28-2012 End: 07-28-2012 Nuclear stress test -exercise Nuclear stress test -exercise [facility] Work Phone: Start: 07-28-2012 End: 07-28-2012 Follow Up Appt 6 weeks Follow Up Appt 6 weeks [facility] Work Phone: Start: 07-28-2012 End: 07-28-2012 Nuclear stress test -exercise Nuclear stress test -exercise [facility] Work Phone: Start: 05-07-2012 End: 01-13-2012 *Hepatic Function Panel *Hepatic Function Panel [facility] Work Phone: Start: 05-07-2012 End: 01-24-2012 Lipid panel [AGGREGATE] *Lipid Profile [facility] Work Phone: Start: 05-07-2012 [...] Phone: Start: 01-24-2012 End: 01-24-2012 *BMP *BMP [facility] Work Phone: Start: 01-24-2012 End: [...] 01-24-2012 Left Heart Cath Left Heart Cath [facility] Work Phone: Start: 01-24-2012 End: 01-24-2012 Magnesium *Magnesium [facility] Work Phone: Start: 01-24-2012 End: 01-24-2012 *BMP *BMP [facility] Work Phone: Start: 01-24-2012 End: 01-24-2012 aPTT *PTT-Partial Thromboplastin Time [facility] Work Phone: Start: 01-24-2012 End: 01-24-2012 CBC W Auto Differential panel - Blood *CBC without Diff [facility] Work Phone: Start: 01-24-2012 End: 01-24-2012 Chest x-ray X-Ray, Chest, PA & Lateral [facility] Work Phone: Start: 01-24-2012 End: 01-24-2012 Coagulation factor induced.INR assay in platelet poor plasma *PT/INR [facility] Work Phone: Start: 01-24-2012 End: 01-24-2012 Electrocardiogram, complete EKG (In office) [facility] Work Phone: Start: 01-24-2012 End: 01-24-2012 Follow Up Appt 2 months Follow Up Appt 2 months [facility] Work Phone: Start: 01-24-2012 End: 01-24-2012 Left Heart Cath Left Heart Cath [facility] Work Phone: Start: 01-24-2012 End: 01-24-2012 Magnesium *Magnesium [facility] Work Phone: Start: 01-13-2012 End: 01-13-2012 Follow Up Appt 6 months Follow Up Appt 6 months [facility] Work Phone: Start: 01-13-2012 End: 01-14-2012 Nuclear stress test -exercise Nuclear stress test -exercise [facility] Work Phone: Start: 01-13-2012 End: 01-13-2012 Follow Up Appt 6 months Follow Up Appt 6 months [facility] Work Phone: Start: 01-13-2012 End: 01-14-2012 Nuclear stress test -exercise Nuclear stress test -exercise [facility] Work Phone: Start: 10-31-2011 Provider Instructions for Treatment [facility] Work Phone: Start: 10-16-2011 Provider Instructions for Treatment [facility] Work Phone: Start: 10-11-2011 End: 11-03-2011 *Hepatic Function Panel *Hepatic Function Panel [facility] Work Phone: Start: 10-11-2011 End: 10-11-2011 Follow Up Appt 3 months Follow Up Appt 3 months [facility] Work Phone: Start: 10-11-2011 End: 11-03-2011 Lipid panel [AGGREGATE] *Lipid Profile [facility] Work Phone: Start: 10-11-2011 End: 11-03-2011 *Hepatic Function Panel *Hepatic Function Panel [facility] Work Phone: Start: 10-11-2011 End: 10-11-2011 Follow Up Appt 3 months Follow Up Appt 3 months [facility] Work Phone: Start: 10-11-2011 End: 11-03-2011 Lipid panel [AGGREGATE] *Lipid Profile [facility] Work Phone: Start: 07-19-2011 End: 07-19-2011 Follow Up Appt Other Follow Up Appt Other [facility] Work Phone: Start: 07-19-2011 End: 07-19-2011 Follow Up Appt Other Follow Up Appt Other [facility] Work Phone: Start: 05-30-2011 End: 07-11-2011 *BMP *BMP [facility] Work Phone: Start: 05-30-2011 End: 07-11-2011 *CBC with Differential *CBC with Differential [facility] Work Phone: Start: 05-30-2011 End: 07-11-2011 aPTT *PTT-Partial Thromboplastin Time [facility] Work Phone: Start: 05-30-2011 End: 05-30-2011 Follow Up Appt 6 weeks Follow Up Appt 6 weeks [facility] Work Phone: Start: 05-30-2011 End: 07-11-2011 INR Coag RelTime (PPP) *PT/INR [facility] Work Phone: Start: 05-30-2011 End: 05-30-2011 Left Heart Cath Left Heart Cath [facility] Work Phone: Start: 05-30-2011 End: 07-11-2011 Magnesium *Magnesium [facility] Work Phone: Start: 05-30-2011 End: [...] 6 weeks Follow Up Appt 6 weeks [facility] Work Phone: Start: 05-30-2011 End: 05-30-2011 Left Heart Cath Left Heart Cath [facility] Work Phone: Start: 05-30-2011 End: 07-11-2011 Magnesium *Magnesium [facility] Work Phone: Start: 2002 Colon [...] Phone: Payers Date Payer Category Payer Unknown [id number] 2015 Unknown [employer] xxxxxxxxxxx 2015-Present [phone] [place] [id number] xxxxxxxxxxx [id number] 1950 Unknown [id number] Unknown [employer] Social History Date Type Detail [...] Documents on File Type Date Recorded Patient [employer] Advance Directives and Living Will Power of Qa Architect Name Dates Details Immunization Registry [place] - Effective on 10/03/2020. Expiration date unspecified Effective:03-Oct-2020 Name Dates Details Immunization Registry [place] - Effective on 10/03/2020. Expiration date unspecified Effective:03-Oct-2020 Reason for Referral Status Reason Specialty Diagnoses / Procedures Referre d By Contact Referred To Contact [facility] Diagnoses Abdominal aortic aneurysm (AAA) without rupture (HCC) Procedures VL Aorta IVC Bypass Graft Miguel De MD [address] [place] [address], [address] [place] [phone] Assessments Diagnosis Abdominal aortic aneurysm (AAA) without rupture (HCC) Additional Source Comments (unrecognized sect ion and content) No Status Records FoundNo Status Records Found INFORMATION SOURCE (unrecogn ized section and content) DATE CREATED AUTHOR AUTHOR'S ORGANIZ ATION 08/31/2019 [facility] FOR RECORDS PERTAINING TO [...] BE BASED ON THE PRIMARY CLINICAL RECORDS. [facility]. provides no warranty or guarantee of the accuracy or completeness of information in this document.
[2023-09-16 08:31] LABS: AST(SGOT) 19 U/L (15-37); Alanine Aminotransfer ALT/SGPT 38 U/L (16-61); Albumin, Serum 3.5 g/dL (3.2-5.0); Alkaline Phosphatase 63 U/L (45-117); Bilirubin, Direct 0.22 mg/dL (0.00-0.30); Cholesterol 151 mg/dL (200); Globulin 4.1 g/dL (2.2-4.2); High Density Lipoprotein 44 mg/dL; Potassium 4.7 mmol/L (3.5-5.1); Protein, Total 7.6 g/dL (6.4-8.2); Triglycerides 109 mg/dL; Very Low Density Lipoprotein 22 mg/dL (5-40)
== END | disposition home or self-care (01) ==
LOC: LAB 06:05
PROVIDERS: Nurse Practitioner Family; PCP Internal Medicine; Referring Provider Internal Medicine; Visit Provider Internal Medicine
DX: E87.5 Hyperkalemia (principal); E78.00 Pure hypercholesterolemia, unspecified
CPT/HCPCS: 36415; 80061; 80076; 84132

== ENCOUNTER → 2023-10-08 | Outpatient (CLI) | payer MEDICARE, OTHER, SELFPAY ==
--- NOTE | 2023-10-08 06:20 | EKG12_ITS ---
Test Reason : PREOP Blood Pressure : / mmHG Vent. Rate : 060 BPM Atrial Rate : 060 BPM P-R Int : 170 ms QRS Dur : 122 ms QT Int : 410 ms P-R-T Axes : 060 018 080 degrees QTc Int : 410 ms Normal sinus rhythm Normal ECG Confirmed by JAVIER SYLVESTER, TOMMY ([id number]), editor farm journal [facility] ([id number]) on 10/08/2023 1:15:33 PM Referred By: Miguel Michelle Confirmed By:TOMMY HERRERA MD
[2023-10-08 09:27] LABS: Absolute Lymphocyte Count 0.91 X10^3/uL (0.83-4.51); Basophil# 0.06 X10^3/uL; Eosinophil# 0.16 X10^3/uL; Eosinophils% 2.8 % (0-5); Hematocrit 40.6 % (40-54); Hemoglobin 15.2 g/dL (13.0-16.5); Lymphocyte # 0.91 X10^3/ul (0.83-4.51); Lymphocyte % 15.7 % (19-41); Mean Corp Hgb Conc 37.4 g/dL (32-36); Mean Corpuscular Hgb 33.6 pg (27.0-32.0); Mean Corpuscular Volume 89.8 fL (80-94); Mean Platelet Vol. 9.6 fl (6.2-12.0); Monocyte# 0.63 X10^3/uL; Monocyte% 10.9 % (0-10); NRBC Flagged by Analyzer 0 % (0-5); Neutrophil # 3.98 X10^3/uL (2.7-7.7); Neutrophil % 68.9 % (47-70); Platelet Count 246 K/mm3 (150-450); RBC Distribution Width SD 43.5 fl (35.1-43.9); Red Blood Count 4.52 M/mm3 (4.6-6.2); White Blood Count 5.8 K/mm3 (4.4-11.0)
[2023-10-08 10:02] LABS: Anion Gap 5 (5-15); BUN 21 mg/dL (7-18); BUN/Creat Ratio 20.4 RATIO (10-20); Calcium,Total 9.3 mg/dL (8.5-10.1); Chloride 107 mmol/L (98-107); Creatinine, Serum 1.03 mg/dL (0.70-1.30); EST Glomerular Filtration Rate 76 mL/min (>60); Est Glom Filt Rate - Afr Amer 91 mL/min (>60); Glucose 99 mg/dL (74-106); Sodium Level 137 mmol/L (136-145)
--- NOTE | 2023-10-08 11:39 | STRESSREP ---
Stress Test Report Pharmacologic myocardial perfusion stress test. 73-year-old man with a history of coronary artery disease for preop evaluation for knee surgery Resting EKG demonstrates sinus rhythm with a rate of 72 bpm. Resting blood pressure is 152/100 mmHg. 0.4 mg of regadenoson was infused per usual protocol followed by rapid intravenous saline flush injection. Continuous EKG monitoring was performed. The maximum heart rate was 97 bpm which was 65% of max impacted heart rate the maximum workload was 1 metabolic equivalent. At rest there were no ST or T wave changes noted to suggest ischemia and at peak infusion nonspecific ST changes were noted which did not meet the criteria for ischemia. No clinical angina is noted. The final blood pressure was 130/80 mmHg. Myocardial perfusion protocol. 13.8 mCi of technetium 99m sestamibi was injected at rest. 0.4 mg of regadenoson was infused per usual protocol. At peak infusion 43.4 mCi of technetium 99m sestamibi was injected stress images were obtained stress and rest images were reconstructed and compared in the short axis vertical long and horizontal long axis. Gated images were also obtained. Perfusion SPECT analysis: Review of the stress images demonstrate normal uptake of tracer noted in all areas of the myocardium except for a medium size portion of the inferolateral wall with reduced perfusion. This was also present on the resting images. The above is suggestive of a previous inferolateral perfusion defect suggestive of an infarct. No ischemia is noted. Gated SPECT analysis: The gated ejection fraction is 60%. Conclusion: Normal pharmacologic myocardial perfusion stress test. Preserved ejection fraction. Previous inferolateral infarct with no evidence of ischemia present
[2023-10-08 12:10] LABS: Hemoglobin A1c 5.7 % (3.8-5.6)
== END | disposition home or self-care (01) ==
PROVIDERS: Physician Assistant; PCP Internal Medicine; Referring Provider Nurse Practitioner Family; Visit Provider Nurse Practitioner Family
DX: Z01.810 Encounter for preprocedural cardiovascular examination (principal); E78.00 Pure hypercholesterolemia, unspecified; I10 Essential (primary) hypertension; I71.40 Abdominal aortic aneurysm, without rupture, unspecified; M25.562 Pain in left knee; M79.662 Pain in left lower leg; R73.03 Prediabetes; I25.10 Atherosclerotic heart disease of native coronary artery without angina pectoris; Z95.5 Presence of coronary angioplasty implant and graft
CPT/HCPCS: 36415; 78452; 80048; 83036; 85025; 93005; 93017; A9500; A4216; J2785

== ENCOUNTER → 2024-01-06 | Outpatient (CLI) | payer MEDICARE, OTHER, SELFPAY | END | disposition home or self-care (01) | LOC: LAB.FUTURE 13:07 | PROVIDERS: PCP Internal Medicine; Referring Provider Urology; Visit Provider Urology | DX: Z00.00 Encounter for general adult medical examination without abnormal findings (principal) ==

== ENCOUNTER → 2024-03-23 | Outpatient (CLI) | payer MEDICARE, OTHER, SELFPAY ==
--- NOTE | 2024-03-23 08:41 | ART_ITS ---
Reason For Study: AAA w/repair Procedure A bilateral lower extremity continuous wave Doppler with analog waveform analysis and ankle brachial indexes. Left Segmental Pressures Left brachial= 129mmHg. Left posterior tibial artery = 144mmHg. Left dorsalis pedis artery = 128mmHg. The left dorsalis pedis waveforms are triphasic. The left posterior tibial artery waveforms are biphasic. Right Segmental Pressures Right brachial= 122mmHg. Right posterior tibial artery = 138mmHg. Right dorsalis pedis artery = 128mmHg. The right dorsalis pedis waveforms are triphasic. The right posterior tibial artery waveforms are triphasic. Indices The right ankle brachial index by the dorsalis pedis is 0.99. The right ankle brachial index by the posterior tibial artery is 1.07. The left ankle brachial index by the dorsalis pedis is 0.99. The left ankle brachial index by the posterior tibial artery is 1.12. VL/Ankle Brachial Index Interpretation Summary Resting ankle-brachial indices appear bilaterally normal. Ordering Physician: Christopher Leary Referring Physician: Terri Arguello M.D. Performed By: Jo Ann An RVT
--- NOTE | 2024-03-23 08:41 | AAVD_ITS ---
Reason For Study: AAA w/repair Aorta Measurements Aorta Doppler Measurements Proximal aorta measures2.45 x 2.47cm. in cross- Peak systolic flow velocities within the proximal sectional axis. aorta measure 61.3 cm/sec. Proximal aorta measures2.33cm. in longitudinal Peak systolic flow velocities within the mid aorta axis. measure 55.6 cm/sec. Mid aorta measures2.37 x 2.36cm. in cross- Peak systolic flow velocities within the distal sectional axis. aorta measure 39.3 cm/sec. Mid aorta measures2.38cm. in longitudinal axis. Distal aorta measures2.45 x 2.45cm. in cross- sectional axis. Distal aorta measures2.46cm. in longitudinal axis. Left Iliac Artery Left iliac artery measures 0.94 x 0.92 cm. in the cross-sectional axis. Left iliac artery measures 0.96 cm. in the longitudinal axis. Peak systolic velocity in the left iliac artery measures 151.8 cm/sec. Right Iliac Artery Right iliac artery measures 1.09 x 1.06 cm. in the cross-sectional axis. Right iliac artery measures 1.08 cm. in the longitudinal axis. Peak systolic velocity in the right iliac artery measures 138.9 cm/sec. Procedure Aorta IVC Iliac vasculature or bypass grafts [id number]. Exam performed in department. VL/Abd Aortic/IVC Duplex scan Interpretation Summary No aortoiliac stenosis or aneurysm noted. Ordering Physician: Christopher Leary Referring Physician: Terri Arguello M.D. Performed By: Jo Ann An RVT
== END | disposition home or self-care (01) ==
LOC: CVS 08:38
PROVIDERS: PCP Internal Medicine; Referring Provider Surgery Vascular Surgery; Visit Provider Surgery Vascular Surgery
DX: I71.43 Infrarenal abdominal aortic aneurysm, without rupture (principal); I73.9 Peripheral vascular disease, unspecified; Z95.828 Presence of other vascular implants and grafts
CPT/HCPCS: 93922; 93978

== ENCOUNTER → 2024-03-31 | Outpatient (CLI) | payer MEDICARE, OTHER, SELFPAY ==
[2024-03-31 11:34] LABS: Mucous, Urine 0 SEEN /hpf (<or=2+); Red Blood Cells-Urine 0 SEEN /hpf (0-5); White Blood Cells 0 SEEN /hpf (0-5)
[2024-03-31 12:37] LABS: Color, Urine Yellow (Yellow); Glucose, Dipstick Normal (Normal); Ketone-Dipstick Negative (Negative); Leukocyte Esterase-Dipstick Negative /ul (Negative); Nitrite-Dipstick Negative (Negative); Occult Blood-Urine Negative /ul (Negative); Protein-Dipstick Negative (Negative); Specific Gravity, Urine 1.015 (1.002-1.030); Urine Bilirubin Dipstick Negative (Negative); Urine Clarity Clear (Clear); Urine Urobilinogen Normal (Normal)
[2024-03-31 12:46] LABS: Bacteria 1+ /hpf (None Seen); Squamous Epithelial Cells - UA 0-5 SEEN /hpf (0-5)
[2024-03-31 12:54] LABS: Absolute Lymphocyte Count 1.38 X10^3/uL (0.83-4.51); Absolute Neutrophil Count 4.1 X10^3/uL (2.0-7.7); Basophil# 0.08 X10^3/uL; Basophil% 1.2 % (0-1); Eosinophil# 0.48 X10^3/uL; Eosinophils% 7.1 % (0-5); Hematocrit 45.1 % (40-54); Hemoglobin 15.1 g/dL (13.0-16.5); Lymphocyte # 1.38 X10^3/ul (0.83-4.51); Lymphocyte % 20.4 % (19-41); Mean Corp Hgb Conc 33.5 g/dL (32-36); Mean Corpuscular Hgb 28.9 pg (27.0-32.0); Mean Corpuscular Volume 86.4 fL (80-94); Mean Platelet Vol. 10.3 fl (6.2-12.0); Monocyte# 0.71 X10^3/uL; Monocyte% 10.5 % (0-10); NRBC Flagged by Analyzer 0 % (0-5); Neutrophil # 4.08 X10^3/uL (2.7-7.7); Neutrophil % 60.1 % (47-70); Platelet Count 267 K/mm3 (150-450); RBC Distribution Width CV 13.7 % (11.6-14.6); RBC Distribution Width SD 42.9 fl (35.1-43.9); Red Blood Count 5.22 M/mm3 (4.6-6.2); White Blood Count 6.8 K/mm3 (4.4-11.0)
[2024-03-31 12:58] LABS: Hemoglobin A1c 5.8 % (3.8-5.6)
[2024-03-31 13:16] LABS: ALB/GLOB Ratio 0.9 RATIO (0.9-2.4); AST(SGOT) 23 U/L (15-37); Alanine Aminotransfer ALT/SGPT 39 U/L (16-61); Albumin, Serum 3.5 g/dL (3.2-5.0); Alkaline Phosphatase 63 U/L (45-117); Anion Gap 7 (5-15); BUN 22 mg/dL (7-18); BUN/Creat Ratio 23.8 RATIO (10-20); Calcium,Total 9.2 mg/dL (8.5-10.1); Chloride 106 mmol/L (98-107); Cholesterol 146 mg/dL (200); Creatinine, Serum 0.92 mg/dL (0.70-1.30); EST Glomerular Filtration Rate 85 mL/min (>60); Est Glom Filt Rate - Afr Amer 103 mL/min (>60); Glucose 89 mg/dL (74-106); High Density Lipoprotein 43 mg/dL; Potassium 4.8 mmol/L (3.5-5.1); Protein, Total 7.5 g/dL (6.4-8.2); Sodium Level 137 mmol/L (136-145); Triglycerides 112 mg/dL; Very Low Density Lipoprotein 22 mg/dL (5-40)
[2024-03-31 13:18] LABS: Microalbumin,Random Urine 15.9 mg/L (NO RANGE EST.)
== END | disposition home or self-care (01) ==
LOC: LAB 11:28
PROVIDERS: PCP Internal Medicine; Referring Provider Nurse Practitioner Family; Visit Provider Internal Medicine
DX: E78.2 Mixed hyperlipidemia (principal); R73.09 Other abnormal glucose
CPT/HCPCS: 36415; 80053; 80061; 81001; 82043; 82570; 83036; 84443; 85025

== ENCOUNTER → 2024-04-21 | Outpatient (CLI) | payer MEDICARE, OTHER, SELFPAY ==
--- NOTE | 2024-04-21 07:22 | ECHOD_ITS ---
Reason For Study: CAD/ASHD Procedure This was a 2D Doppler, Color Flow transthoracic echocardiogram. Exam performed in department. Left Ventricle Normal LV size. Left ventricular systolic function is normal. The left ventricular ejection fraction is 55 %. Stage 1 diastolic dysfunction. No regional wall motion abnormalities noted. Right Ventricle Normal RV size. Normal systolic function. Atria Normal left atrium. Normal right atrium. Mitral Valve Normal mitral valve. Tricuspid Valve Normal tricuspid valve. Aortic Valve Trisinus/trileaflet aortic valve. Mild focal aortic valve calcification. Pulmonic Valve Normal pulmonic valve. Great Vessels Normal aortic root. The pulmonary artery is normal size. Normal inferior vena cava. Pericardium/Pleural No pericardial effusion. MMode/2D Measurements & Calculations LVIDd: 5.5 cm IVSd: 1.0 cm LVOT diam: 2.3 cm LVIDs: 3.5 cm LVPWd: 1.1 cm LVOT area: 4.2 cm2 FS: 36.1 % asc Aorta Diam: 3.7 cm LAV(MOD-bp): 71.7 ml LVAd ap4: 29.9 cm2 LAV(MOD-bp) Indexed: 33.0 ml/m2 LVLd ap4: 8.5 cm LAV(MOD-sp2): 62.1 ml EDV(MOD-sp4): 90.8 ml LAV(MOD-sp4): 64.4 ml EDV(sp4-el): 89.3 ml LVAs ap4: 17.3 cm2 LVLs ap4: 7.1 cm ESV(MOD-sp4): 36.5 ml ESV(sp4-el): 35.8 ml EF(MOD-sp4): 59.8 % EF(sp4-el): 59.9 % LVAd ap2: 30.0 cm2 SV(MOD-sp4): 54.3 ml SV(MOD-sp2): 56.6 ml LVLd ap2: 8.5 cm EDV(MOD-sp2): 85.6 ml EDV(sp2-el): 89.7 ml LVAs ap2: 15.9 cm2 LVLs ap2: 7.3 cm ESV(MOD-sp2): 28.9 ml ESV(sp2-el): 29.5 ml EF(MOD-sp2): 66.2 % SV(sp4-el): 53.5 ml LA A4 area: 19.9 cm2 RA A4 area: 16.5 cm2 TAPSE: 2.2 cm Time Measurements MV dec time: 0.28 sec Doppler Measurements & Calculations MV E max garrison: 51.0 cm/sec Lat Peak E' Garrison: 8.5 cm/sec Med Peak E' Garrison: 9.2 cm/sec MV A max garrison: 63.5 cm/sec E/E' lat: 6.0 E/E' med: 5.6 MV E/A: 0.80 MV V2 max: 85.1 cm/sec MV P1/2t max garrison: 80.0 cm/sec Ao V2 max: 114.0 cm/sec MV max P.9 mmHg MV P1/2t: 102.5 msec Ao max P.2 mmHg MV V2 mean: 37.5 cm/sec MV dec slope: 228.7 cm/sec2 Ao V2 mean: 77.0 cm/sec MV mean P.76 mmHg Ao mean P.7 mmHg MV V2 VTI: 38.8 cm MVA(P1/2t): 2.1 cm2 Ao V2 VTI: 29.2 cm MVA(VTI): 2.9 cm2 AV (velocity ratio): 0.89 BRONWYN(I,D): 3.8 cm2 BRONWYN(V,D): 3.6 cm2 LV V1 max: 97.7 cm/sec SV(LVOT): 111.0 ml PA V2 max: 74.5 cm/sec LV V1 max P.8 mmHg PA max PG (full): 1.2 mmHg LV V1 mean P.1 mmHg PA V2 mean: 53.6 cm/sec LV V1 mean: 67.8 cm/sec PA V2 VTI: 17.6 cm LV V1 VTI: 26.1 cm ECHO/Echo Complete Interpretation Summary Normal LV size. Left ventricular systolic function is normal. The left ventricular ejection fraction is 55 %. Mild focal aortic valve calcification. Stage 1 diastolic dysfunction. Ordering Physician: Ezekiel, Shawn Referring Physician: Agusto Martinez; Terri Arguello Performed By: Mary Aparicio RVT, RDCS and Student
--- NOTE | 2024-04-21 07:23 | CT_ITS ---
STUDY: CT LEFTLOWER EXTREMITY WITHOUT CONTRAST REASON FOR EXAM: Male, 74 years old. KNEE PAIN RADIATION DOSAGE (If Supplied By Facility): CTDIvol = ( 18.76 ) mGy, DLP = ( 1274.04 ) mGycm TECHNIQUE: Thin section transaxial imaging of the ankle was obtained, with sagittal and coronal reconstructed images. Individualized dose optimization techniques were used for this CT. COMPARISON: X-ray of the left knee dated July 28, 2023 Hip findings: Mild axial narrowing of the left hip joint. No fracture or avascular necrosis is present. No loose bodies are seen. The left hemipelvic structures are unremarkable. The muscles are normal. Normal visualized soft tissue structures of the pelvis. Knee findings: Severe medial compartment narrowing of [id number] contact and reactive sclerosis. A large osteochondral defect with full-thickness cartilage loss is present in the central to outer half of the medial femoral condyle measuring 1 cm in diameter. A moderate definite osteochondral defect of the anterior peripheral aspect of the medial tibial plateau is also present measuring 1.52 cm in diameter. Mild to moderate subchondral cystic changes and reactive sclerosis is present in the lateral compartment as well which is also mildly narrowed. A moderate size joint effusion is present. Normal alignment of the patella in the trochlear groove. Normal proximal tibiofibular articulation. The quadriceps tendon is grossly normal. The patellar tendon is grossly normal. Normal Hoffa''s fat pad. The soft tissues are unremarkable. Ankle findings: Normal visualized distal tibia and fibula. Normal tibiotalar articulation and talar dome. Normal talus, calcaneus, navicular and cuboid tarsal bones. Normal subtalar, talonavicular and calcaneocuboid articulations. Normal navicular-cuneiform, cuneiform tarsal bones and intercuneiform articulations. Normal tarsometatarsal articulations and visualized metatarsi. The soft tissue structures are grossly normal. CT/Extremity Lower without Contra IMPRESSION: 1. 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
--- NOTE | 2024-04-21 07:24 | EKG12_ITS ---
Test Reason : PREOP Blood Pressure : / mmHG Vent. Rate : 049 BPM Atrial Rate : 049 BPM P-R Int : 188 ms QRS Dur : 116 ms QT Int : 442 ms P-R-T Axes : 059 007 067 degrees QTc Int : 399 ms Marked sinus bradycardia with sinus arrhythmia Low voltage QRS Possible Inferior infarct , age undetermined Abnormal ECG Confirmed by JAVIER SYLVESTER, TOMMY ([id number]), acquisition editor ESTEPHANIA INGRAM ([id number]) on 04/22/2024 5:56:20 AM Referred By: Agusto Martinez Confirmed By:TOMMY HERRERA MD
[2024-04-21 09:09] LABS: Absolute Lymphocyte Count 0.99 X10^3/uL (0.83-4.51); Absolute Neutrophil Count 4.3 X10^3/uL (2.0-7.7); Basophil# 0.07 X10^3/uL; Basophil% 1.1 % (0-1); Eosinophil# 0.43 X10^3/uL; Eosinophils% 6.6 % (0-5); Hemoglobin 13.9 g/dL (13.0-16.5); Lymphocyte # 0.99 X10^3/ul (0.83-4.51); Lymphocyte % 15.2 % (19-41); Mean Corp Hgb Conc 33.1 g/dL (32-36); Mean Corpuscular Volume 87.7 fL (80-94); Mean Platelet Vol. 9.7 fl (6.2-12.0); Monocyte# 0.69 X10^3/uL; Monocyte% 10.6 % (0-10); NRBC Flagged by Analyzer 0 % (0-5); Neutrophil # 4.26 X10^3/uL (2.7-7.7); Neutrophil % 65.6 % (47-70); Platelet Count 253 K/mm3 (150-450); RBC Distribution Width SD 44.7 fl (35.1-43.9); Red Blood Count 4.79 M/mm3 (4.6-6.2); White Blood Count 6.5 K/mm3 (4.4-11.0)
[2024-04-21 09:23] LABS: Albumin, Serum 3.5 g/dL (3.2-5.0); Anion Gap 5 (5-15); BUN 22 mg/dL (7-18); Calcium,Total 8.9 mg/dL (8.5-10.1); Chloride 109 mmol/L (98-107); Creatinine, Serum 0.84 mg/dL (0.70-1.30); EST Glomerular Filtration Rate 95 mL/min (>60); Est Glom Filt Rate - Afr Amer 115 mL/min (>60); Glucose 96 mg/dL (74-106); Potassium 4.4 mmol/L (3.5-5.1); Sodium Level 139 mmol/L (136-145)
== END | disposition home or self-care (01) ==
LOC: CT 07:19
PROVIDERS: PCP Internal Medicine; Referring Provider Specialist; Visit Provider Specialist
DX: S83.242D Other tear of medial meniscus, current injury, left knee, subsequent encounter (principal); M17.12 Unilateral primary osteoarthritis, left knee; M25.562 Pain in left knee; Z01.810 Encounter for preprocedural cardiovascular examination; Z01.818 Encounter for other preprocedural examination
CPT/HCPCS: 36415; 73700; 80048; 82040; 85025; 93005; 93306

== ENCOUNTER 2024-05-16 08:29 | Emergency (ER) | payer MEDICARE, OTHER, SELFPAY ==
[2024-05-16 08:31] VITALS: BP 142/69; PULSE 79; RESP 18; TEMP 36.8; O2SAT 97; BMI 32.6
[2024-05-16 08:34] VITALS: BP 142/69; PULSE 79; RESP 18; TEMP 36.8; O2SAT 97
--- NOTE | 2024-05-16 08:51 | VDLE_ITS ---
Reason For Study: LLE SWELLING RIGHT LEFT CFV is compressible, spontaneous, phasic, GSV is normal. competent and demonstrates normal CFV is compressible, spontaneous, phasic, augmentation. competent, and demonstrates normal Procedure augmentation. Exam performed portable in ED. FV is compressible, spontaneous, phasic, The study was technically difficult. competent and demonstrates normal DUE TO LLE swelling. augmentation. Exam is out of order, due to difficulty with POP V is compressible, spontaneous, phasic, exam. competent and demonstrates normal A preliminary report was called and/or faxed augmentation. to Dr. Santana & ED @ 10 am. T/P Trunk is compressible. PTV is compressible. LT PerV is compressible. VL/Venous Duplex US, Unilateral Interpretation Summary Deep veins of the left lower extremity are patent and compressible segmentally. There is no evidence of left lower extremity deep vein thrombosis. Valvular competence appears intac t within the proximal deep venous system on the left . The left great saphenous vein appears patent a nd compressible segmentally. The right common femoral vein is patent and compressible . Ordering Physician: Jeovanny Barrera Referring Physician: Terri Arguello: Agusto Martinez Performed By: Mary Aparicio, NAIF, RVT
--- NOTE | 2024-05-16 08:53 | ED.VIS.LOWEX ---
HPI History of Present Illness HPI Narrative: 74-year-old male status post left knee replacement surgery by Dr. Agusto Martinez on . Patient states that he has developed increased swelling and pain at both the knee and lower leg. No prior history of DVT. He has taken aspirin 81 mg twice daily currently. He is on no other blood thinners. He denies any fever or chills. He denies any other complaints. Chief Complaint: Edema Informant: patient Occured/Mechanism Mechanism/Context: No injury and No blunt trauma Onset/Context/Timing Onset: Today Context: Gradual Onset Timing: Continuous Quality of Pain: Dull and Aching Current Severity: Moderate Maximum Severity: Moderate Associated Symptoms Associated Symptoms: Negative for Parasthesia, Weakness or Loss of Funtion Narrative Narrative: 74-year-old male status post left knee replacement surgery on complaining of increasing pain and swelling. 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) Pain in left lower leg Left knee pain History of ST elevation myocardial infarction (STEMI) (10/31/10) Abdominal aortic aneurysm (AAA) Essential (primary) hypertension Shoulder pain Bladder cancer Primary osteoarthritis, left shoulder Impingement syndrome of left shoulder Pain in left shoulder Atherosclerotic heart disease of [place] coronary artery without angina pectoris Hyperlipidemia Home Medications ?Medication ?Instructions ?Recorded ?Last Taken ?Type aspirin 81 mg tablet,delayed 81 mg PO DAILY@0800 02/29/20 02/22/20 History release atorvastatin 40 mg tablet 40 mg PO DAILY #90 tabs 07/16/23 Unknown Rx lisinopril 10 mg tablet 10 mg PO DAILY #90 tabs 01/09/24 Unknown Rx nitroglycerin 0.4 mg sublingual 0.4 mg sublingual PRN PRN CHEST 03/22/24 Unknown Rx tablet PAIN #25 tabs metoprolol tartrate 25 mg tablet 25 mg PO BID #180 tabs 04/12/24 Unknown Rx oxycodone 5 mg tablet 5 mg PO Q4H PRN pain 4 days #20 05/16/24 Unknown Rx tabs Allergy/AdvReac Type Severity Reaction Status Date / Time clopidogrel (From Plavix) Allergy Anaphylaxis Verified 05/16/24 08:37 Family History Other Heart disease Hyperlipidemia Surgical History H/O endovascular stent graft for abdominal aortic aneurysm (12/18/10) H/O transurethral destruction of bladder lesion (2009) History of coronary artery stent placement (01/28/12) Social History Smoking Status: Former smoker alcohol intake: never ROS ROS ED ROS Narrative Denies recent illness. Denies fever or chills. Constitutional Constitutional ED: Denies chills or fever(s) Eyes Eyes: Denies blurry vision ENT ENT ED: Denies ear pain Cardiovascular Cardiovascular: Denies chest pain Respiratory/Chest Respiratory/Chest: Denies cough or dyspnea Gastrointestinal Gastrointestinal: Denies abdominal pain Genitourinary Genitourinary ED: Denies dysuria Musculoskeletal Musculoskeletal: Denies arthralgias Integumentary Denies abscess Neurologic Neurologic: Denies headache(s) Psychiatric Psychiatric: Denies anxiety or depression Endocrine Endocrinology: Denies polydipsia Hematologic/Lymphatic Hematologic/Lymphatic: Denies easy bleeding Allergic/Immunologic Allergic/Immunologic ED: Denies mouth swelling or tongue swelling EXAM Physical Exam Narrative Exam Narrative: 74-year-old male vital signs are stable. He is afebrile. He does not look septic toxic. HEENT exam unremarkable. Neck nontender no JVD. Lungs clear to auscultation bilaterally. Heart regular rhythm no murmur. Abdomen soft nontender. Moving all 4 extremities. Neurovascularly intact. His left lower leg there is edema and moderate swelling from just above the knee down to his toes. He is able to wiggle his toes. Normal touch sensation. He has 1-2+ pitting edema. There is a dressing over the anterior knee due to recent knee replacement surgery with anterior incision. Incision is dry and clean. He also has a staple line on the mid lower leg that has some mild oozing of blood. He has limited range of motion of his knee which is consistent with recent knee replacement surgery. There is no inguinal lymphadenopathy. Const Vital Signs: 05/16/24 08:31 05/16/24 08:34 05/16/24 08:36 Temperature 98.2 F 98.2 F Temperature Source Oral Oral Pulse Rate 79 79 Respiratory Rate 18 18 Respiratory Effort Normal Non-Labored Respiratory Pattern Normal Blood Pressure 142/69 H 142/69 H Blood Pressure Mean 93 93 Pulse Ox 97 97 Oxygen Delivery Method Room Air Room Air 05/16/24 09:31 05/16/24 10:00 05/16/24 11:07 Temperature Temperature Source Pulse Rate 78 78 76 Respiratory Rate 16 16 14 Respiratory Effort Respiratory Pattern Blood Pressure 116/87 H 124/81 H 118/76 Blood Pressure Mean 96 95 90 Pulse Ox 98 99 98 Oxygen Delivery Method Room Air Room Air Room Air Positive well nourished and well developed; Negative for cachectic, contractures or unkempt General Appearance ED: well developed and NAD; Negative for unkempt, cachectic or contractures Nutritional Appearance: Negative for cachectic HEENT Reports moist mucous membranes normocephalic and atraumatic Eyes PERRL Neck full ROM and supple Thyroid: Negative for tender Chest Wall inspection of chest normal and palpation of chest normal Resp normal respiratory effort, no retractions and clear to auscultation bilaterally Auscultation: Negative for rales, rhonchi, wheezes or diminished lung sounds Cardio regular rate, regular rhythm, S1 normal heart sound, S2 normal heart sound and no murmurs Rate: Negative for bradycardia or tachycardic Rhythm: Negative for abnormal rhythm Bruits: Negative for other GI non-tender, non-distended and no masses Auscultation: normoactive bowel sounds Palpation: soft; Negative for tender, guarding or rebound tenderness present Back/Spine no CVA tenderness Extremity Negative for normal to inspection or full ROM Extremity Narrative: Swelling edema left lower leg just above the knee down to his toes. Status post knee replacement bandage in place anteriorly. Left foot neurovascularly intact with touch sensation. Able to wiggle his toes. Limited range of motion of the knee after recent surgery. No inguinal lymphadenopathy. General Extremety ED: Yes edema; Negative for cyanosis General Extremity: edema; Negative for cyanosis Neuro oriented x3 and CN's II-XII intact bilaterally Sensorium / Orientation: alert, oriented to person, oriented to place and oriented to time Motor Exam: strength 5/5 throughout Psych mental status grossly normal Appearance: Negative for unkempt Mood & Affect: Negative for anxious Skin no wounds Lesions: no lesions Rashes: no rashes MDM MDM MDM Narrative Medical decision making narrative: 74-year-old male left lower extremity swelling after knee replacement surgery 3 days ago. Ultrasound be obtained to rule out DVT. Patient was requesting something for pain he is using oxycodone at home which is working well for him he was given a oral oxycodone. Repeat exam unchanged. The ultrasound lower extremity showed no DVT per the cable installation technician. I discussed with the family the importance of ice and elevation and his current therapeutic plan. He scheduled physical therapy tomorrow in the office I told him to see if they can get into see Dr. Martinez to have this reevaluated. I wrote him for some additional oxycodone. I do of Dr. Martinez on page currently I believe he is in the OR. Reviewed and patient is doing well on 1:45 AM. He was given 2 oxycodone's for his pain is improved. I did speak to Dr. Agusto Martinez who is currentl in the OR busy with orthopedic cases.y we discussed the patient's exam and negative ultrasound results. He will follow the patient up in the office tomorrow when he is physical therapy. History & Record Review Discussion w/independent historian: Patient Additional record(s) reviewed:: Prior inpatient record, Prior outpatient record, Prior ED visit and Prior labs Discharge Plan Triage Chief Complaint: Edema ED Provider: Jeovanny Barrera Dx/Rx/DC Orders Clinical Impression: Leg swelling, History of knee replacement, total Instructions: ED Peripheral Edema, Unilateral Prescriptions: New oxycodone 5 mg tablet 5 mg PO Q4H PRN (Reason: pain) 4 Days Qty: 20 0RF No Action aspirin 81 MG tablet 81 mg PO DAILY@0800 atorvastatin 40 mg tablet 40 mg PO DAILY Qty: 90 3RF lisinopril 10 mg tablet 10 mg PO DAILY Qty: 90 3RF nitroglycerin 0.4 mg tablet, sublingual 0.4 mg SUBLINGUAL PRN PRN (Reason: CHEST PAIN) Qty: 25 3RF metoprolol tartrate 25 mg tablet 25 mg PO BID Qty: 180 3RF Primary Care Provider: Terri Arguello Referrals: Terri Arguello, [Primary Care Provider] - Agusto Martinez MD [Med Staff - Active Staff] - As soon as possible (When you are in the office on [place] for physical therapy see if they can have Dr. Martinez stop down and reevaluate your leg. If not needs to be reevaluated this week.) Activity Restrictions/Additional Instructions: Continue ice and elevation. Oxycodone for pain. See Dr. Martinez this week to have it reevaluated. Return if any fever, chills or if looking worse. Currently there is no infection. Print Language: Romansh Disposition Disposition: Home, Self Care
[2024-05-16] MEDS: oxyCODONE 5 MG Tablet PO ×2 (08:55→10:18)
[2024-05-16 09:31] VITALS: BP 116/87; PULSE 78; RESP 16; O2SAT 98
[2024-05-16 10:00] VITALS: BP 124/81; PULSE 78; RESP 16; O2SAT 99
[2024-05-16 11:07] VITALS: BP 118/76; PULSE 76; RESP 14; O2SAT 98
[2024-05-16 12:05] VITALS: BP 130/78; PULSE 78; RESP 16; O2SAT 98
== END 2024-05-16 12:06 | disposition home or self-care (01) ==
PROVIDERS: Emergency Provider Emergency Medicine; PCP Internal Medicine; Visit Provider Emergency Medicine
DX: R60.0 Localized edema (principal); Z96.652 Presence of left artificial knee joint; I10 Essential (primary) hypertension; I25.2 Old myocardial infarction; E78.5 Hyperlipidemia, unspecified; I25.10 Atherosclerotic heart disease of native coronary artery without angina pectoris; I71.40 Abdominal aortic aneurysm, without rupture, unspecified; M19.012 Primary osteoarthritis, left shoulder; Z95.5 Presence of coronary angioplasty implant and graft; Z85.51 Personal history of malignant neoplasm of bladder; Z79.82 Long term (current) use of aspirin; Z79.899 Other long term (current) drug therapy; Z95.828 Presence of other vascular implants and grafts; Z87.891 Personal history of nicotine dependence
CPT/HCPCS: 93971; 99284

== ENCOUNTER → 2025-02-21 | Outpatient (CLI) | payer MEDICARE, OTHER, SELFPAY ==
--- NOTE | 2025-02-21 10:10 | FLU_PTH ---
PATIENT: CHRIS CR LOC: LAB U#:[id number] AGE/SX: 74/M ROOM: RE02/21/[address]: Dr. Derrek Gann MD : 1950 BED: DIS: 02/21/2025 SPEC #: [id number] RECD: 02/21/25 16:38 STATUS: ANNEL REDaja #: [id number] ZAK: 02/21/25 10:[address]: Derrek Gann DEPT: CYTOLOGY RECD BY: Mikel Krueger ENTERED: 02/22/25 09:25 SP TYPE: Fluid OTHR DR: Dr. Terri Arguello, DO Tissues: A - Urine Procedures: Special Stain Group II Cytospin Fluid HEADER OPERATION: Not noted PRE-OP DIAGNOSIS: Malignant neoplasm of overlapping sites of bladder TISSUE SUBMITTED: A- Urine for cytology - voided DIAGNOSIS CYTOLOGY A. Urine, voided (cytospin): - No malignant cells identified. CYTOLOGY STUDY Slides are reviewed. CYTOLOGY GROSS A. Received is 100 ml of [id number] fluid labeled with the patient's name and and designated per the requisition as urine. Submitted for cytology preparation. 02/22/2025 CPT: 85565
[2025-02-21 12:09] LABS: PSA,Total - Annual Screen 1.37 ng/mL (0.02-4.00)
[2025-02-21 16:39] LABS: Cytology, Body Fluid / CSF SEE PATHOLOGY REPORT
== END | disposition home or self-care (01) ==
PROVIDERS: PCP Internal Medicine; Referring Provider Urology; Visit Provider Urology
DX: C67.8 Malignant neoplasm of overlapping sites of bladder (principal); Z12.5 Encounter for screening for malignant neoplasm of prostate
CPT/HCPCS: 36415; 84153; 88108; 88305; 88313; G0103

== ENCOUNTER → 2025-04-13 | Outpatient (CLI) | payer MEDICARE, OTHER, SELFPAY ==
[2025-04-13 08:08] LABS: Mucous, Urine 0 SEEN /hpf (<or=2+); Red Blood Cells-Urine 0 SEEN /hpf (0-5); Squamous Epithelial Cells - UA 0 SEEN /hpf (0-5)
[2025-04-13 10:05] LABS: Color, Urine Yellow (Yellow); Glucose, Dipstick Normal (Normal); Ketone-Dipstick Negative (Negative); Leukocyte Esterase-Dipstick Negative /ul (Negative); Nitrite-Dipstick Negative (Negative); Occult Blood-Urine Negative /ul (Negative); Protein-Dipstick 30 mg/dl (Negative); Specific Gravity, Urine 1.010 (1.002-1.030); Urine Bilirubin Dipstick Negative (Negative)
[2025-04-13 10:13] LABS: Hematocrit 42.9 % (40-54); Hemoglobin 14.6 g/dL (13.0-16.5); Immature Granulocytes Count 0.040 X10^3/uL (0.0-0.0); Mean Corp Hgb Conc 34.0 g/dL (32-36); Mean Corpuscular Volume 85.6 fL (80-94); Mean Platelet Vol. 10.1 fl (6.2-12.0); NRBC Flagged by Analyzer 0 % (0-5); Platelet Count 269 K/mm3 (150-450); RBC Distribution Width CV 14.1 % (11.6-14.6); RBC Distribution Width SD 43.7 fl (35.1-43.9); Red Blood Count 5.01 M/mm3 (4.6-6.2); White Blood Count 6.7 K/mm3 (4.4-11.0)
[2025-04-13 10:26] LABS: Creatinine, Urine (random) 82.20 mg/dL (39.00-259.00); Microalbumin,Random Urine 50.8 mg/L (<20 mg/L)
[2025-04-13 10:29] LABS: Hepatitis C Antibody Nonreactive (Nonreactive)
[2025-04-13 10:37] LABS: AST(SGOT) 22 U/L (<=37); Alanine Aminotransfer ALT/SGPT 29 U/L (<=46); Albumin, Serum 4.0 g/dL (3.4-4.8); Alkaline Phosphatase 67 U/L (40-129); Anion Gap 11 (5-15); BUN 19 mg/dL (4-19); BUN/Creat Ratio 16.7 RATIO (10-20); Calcium,Total 9.5 mg/dL (7.6-11.0); Carbon Dioxide 22.6 mmol/L (21.0-32.0); Chloride 106 mmol/L (98-108); Cholesterol 172 mg/dL (<=200); Globulin 3.3 g/dL (2.2-4.2); Glucose 95 mg/dL (70-99); Low Density Lipoprotein Calc. 111 mg/dL; Potassium 5.3 mmol/L (3.3-5.1); Triglycerides 87 mg/dL; Very Low Density Lipoprotein 17 mg/dL (5-40); cholesterol:hdl ratio screen 3.93
== END | disposition home or self-care (01) ==
PROVIDERS: PCP Internal Medicine; Referring Provider Student in an Organized Health Care Education/Training Program; Visit Provider Student in an Organized Health Care Education/Training Program
DX: Z00.01 Encounter for general adult medical examination with abnormal findings (principal); R73.09 Other abnormal glucose; I25.10 Atherosclerotic heart disease of native coronary artery without angina pectoris
CPT/HCPCS: 36415; 80053; 80061; 81001; 82043; 82570; 83036; 84443; 85025; 86803

== ENCOUNTER → 2025-06-20 | Outpatient (CLI) | payer MEDICARE, OTHER, SELFPAY ==
--- NOTE | 2025-06-20 07:30 | ART_ITS ---
Reason For Study Reason For Study: PVD Procedure A bilateral lower extremity continuous wave Doppler with analog waveform analysis and ankle brachial indexes. Left Segmental Pressures Left brachial= 139mmHg. Left posterior tibial artery = 142mmHg. Left dorsalis pedis artery = 141mmHg. Left digit = 112 mmHg. The left posterior tibial artery waveforms are triphasic. The left dorsalis pedis waveforms are triphasic. Right Segmental Pressures Right brachial= 140mmHg. Right posterior tibial artery = 148mmHg. Right dorsalis pedis artery = 145mmHg. Right digit = 113 mmHg. The right posterior tibial artery waveforms are triphasic. The right dorsalis pedis waveforms are triphasic. Indices The right ankle brachial index by the posterior tibial artery is 1.06. The right ankle brachial index by the dorsalis pedis is 1.04. The right digital-brachial index is 0.81. The left ankle brachial index by the posterior tibial artery is 1.01. The left ankle brachial index by the dorsalis pedis is 1.01. The left digital-brachial index is 0.80. VL/Ankle Brachial Index Interpretation Summary Resting ankle-brachial indices appear bilaterally normal. Ordering Physician: Christopher Leary Referring Physician: Terri Arguello Performed By: Anatoly Ayon RVT and Student
--- NOTE | 2025-06-20 07:30 | AAVD_ITS ---
Reason For Study Reason For Study: HX AAA w/repair Aorta Measurements Aorta Doppler Measurements Proximal aorta measures2.18 x 2.23cm. in cross-sectional Peak systolic flow velocities within the proximal aorta axis. measure 57.6 cm/sec. Proximal aorta measures2.26cm. in longitudinal axis. Peak systolic flow velocities within the mid aorta measure Mid aorta measures2.42 x 2.50cm. in cross-sectional axis. 42.8 cm/sec. Mid aorta measures2.55cm. in longitudinal axis. Peak systolic flow velocities within the distal aorta Distal aorta measures2.82 x 2.65cm. in cross-sectional axis.measure 40.5 cm/sec. Distal aorta measures2.67cm. in longitudinal axis. Left Iliac Artery Left iliac artery measures 1.27 x1.20 cm. in the cross-sectional axis. Left iliac artery measures 1.26 cm. in the longitudinal axis. Peak systolic velocity in the left iliac artery measures 137.3 cm/sec. Right Iliac Artery Right iliac artery measures 1.40 x 1.45 cm. in the cross-sectional axis. Right iliac artery measures 1.49 cm. in the longitudinal axis. Peak systolic velocity in the right iliac artery measures 187.2 cm/sec. Rt NORM Stent Noted. Procedure Aorta IVC Iliac vasculature or bypass grafts 93437. The exam was diagnostic. Exam performed in department. VL/Abd Aortic/IVC Duplex scan Interpretation Summary Aortoiliac no stenosis or aneurysm and stent patent. Ordering Physician: Christopher Leary Referring Physician: Terri Arguello Performed By: Anatoly Ayon RVT and Student
== END | disposition home or self-care (01) ==
LOC: CVS 07:29
PROVIDERS: PCP Internal Medicine; Referring Provider Surgery Vascular Surgery; Visit Provider Surgery Vascular Surgery
DX: I73.9 Peripheral vascular disease, unspecified (principal); I71.43 Infrarenal abdominal aortic aneurysm, without rupture; Z95.828 Presence of other vascular implants and grafts
CPT/HCPCS: 93922; 93978